=== PATIENT | female | born 1965 | race Hispanic/Latino ===

== ENCOUNTER 2016-09-11 18:53 | Emergency (ER) | payer MEDICAID ==
[2016-09-11 19:11] VITALS: BP 134/68; PULSE 82; RESP 20; TEMP 98.7; O2SAT 99
[2016-09-11 19:18] VITALS: BMI 19.3
[2016-09-11] MEDS ORDERED: Albuterol-Ipratrop 3 mg / 0.5 (3 ml) UD IH STA (19:37)
--- NOTE | 2016-09-11 19:37 | ED PDOC ---
Arrival/HPI <AryNitin - Last Filed: 09/11/16 21:06> - General Historian: Patient <Fermin Beltran - Last Filed: 09/12/16 05:05> - General Chief Complaint: Abdominal Pain Time Seen by Provider: 09/11/16 19:14 - History of Present Illness Narrative History of Present Illness (Text): 09/11/16 19:33 51 y/o female with hx COPD, tobacco use, chronic back pain presenting with complaints of abdominal pain. Patient states pain started about 1 day ago. She localizes pain to infra-umbilical area bilaterally. She reports associated fever of 102F yesterday at home. She denies associated nausea, vomiting and diarrhea. She has been able to tolerate both solids and liquids. Patient was recently admitted here for similar complaints and diagnosed with pelvic congestion syndrome. She is also complaining of chronic cough and shortness of breath. States states she used her nebulizer this morning without significant relief. (Fermin Beltran) Past Medical History - Provider Review Nursing Documentation Reviewed: Yes - Infectious Disease Hx of Infectious Diseases: None - Tetanus Immunization Tetanus Immunization: Unknown - Reproductive Menopause: Yes - Cardiac Hx Cardiac Disorders: No - Pulmonary Hx Respiratory Disorders: Yes (SMOKES PPD QUIT) - Neurological Hx Neurological Disorder: No - HEENT Hx HEENT Disorder: No - Renal Hx Renal Disorder: No - Endocrine/Metabolic Hx Endocrine Disorders: No - Hematological/Oncological Hx Blood Disorders: No - Integumentary Hx Dermatological Disorder: Yes (TATTOOS) - Musculoskeletal/Rheumatological Hx Musculoskeletal Disorders: Yes (CYST BEHIND KNEE R- LUMBAR RADICULOPATHY) - Gastrointestinal Hx Gastrointestinal Disorders: Yes (CONSTIPATION,APPENDICITIS) - Genitourinary/Gynecological Hx Genitourinary Disorders: Yes (OVARIAN CYSTECTOMY X 2.) - Psychiatric Hx Psychophysiologic Disorder: Yes Hx Anxiety: Yes Hx Substance Use: No - Surgical History Hx Tubal Ligation: Yes Other/Comment: MYOMECTOMY - Anesthesia Hx Anesthesia: Yes Hx Anesthesia Reactions: No Hx Malignant Hyperthermia: No - Suicidal Assessment Feels Threatened In Home Enviroment: No <Fermin Beltran - Last Filed: 09/12/16 05:05> Family/Social History - Physician Review Nursing Documentation Reviewed: Yes Family/Social History: Unknown Family HX Smoking Status: Light Smoker < 10 Cigarettes Daily Hx Alcohol Use: No Hx Substance Use: No Hx Substance Use Treatment: No <Fermin Beltran - Last Filed: 09/12/16 05:05> Allergies/Home Meds <Nitin Mcallister - Last Filed: 09/11/16 21:06> <Fermin Beltran - Last Filed: 09/12/16 05:05> Allergies/Adverse Reactions: Allergies hydroxyzine Allergy (Severe, Verified 08/26/16 23:14) FATIGUE hydroxyzine HCl [From Atarax] Allergy (Verified 08/26/16 23:14) FATIGUE Penicillins Allergy (Verified 08/26/16 23:14) RASH Home Medications: Home Meds Medication Instructions Recorded Confirmed Oxycodone HCl [Oxycontin] 80 mg PO BID 02/04/16 09/11/16 oxyCODONE [oxyCODONE Immediate 30 mg PO BID PRN 02/04/16 09/11/16 Release Tab] Alprazolam [Xanax] 2 mg PO BID PRN 08/26/16 09/11/16 Review of Systems - Physician Review All systems were reviewed & negative as marked: Yes - Review of Systems Constitutional: Fevers. absent: Night Sweats Respiratory: SOB, Cough Gastrointestinal: Abdominal Pain. absent: Stool Changes, Diarrhea, Nausea, Vomiting, Hematochezia, Food Intolerance Genitourinary Female: absent: Dysuria, Frequency, Hematuria Musculoskeletal: Back Pain, Neck Pain <Fermin Beltran - Last Filed: 09/12/16 05:05> Physical Exam Vital Signs Reviewed: Yes Temperature: Afebrile Blood Pressure: Normal Pulse: Regular Respiratory Rate: Normal Appearance: Positive for: Well-Appearing Mental Status: Positive for: Alert and Oriented X 3 - Systems Exam Head: Present: Atraumatic, Normocephalic Pupils: Present: PERRL Extroacular Muscles: Present: EOMI Conjunctiva: Present: Normal Mouth: Present: Moist Mucous Membranes Neck: Present: Normal Range of Motion Respiratory/Chest: Present: Wheezes. No: Clear to Auscultation, Good Air Exchange, Accessory Muscle Use, Rales, Rhonchi Cardiovascular: Present: Regular Rate and Rhythm, Normal S1, S2 Abdomen: Present: Normal Bowel Sounds. No: Tenderness, Distention, Peritoneal Signs, Rebound, Guarding Back: Present: Normal Inspection Upper Extremity: Present: Normal Inspection. No: Cyanosis, Edema Lower Extremity: Present: Normal Inspection, NORMAL PULSES. No: Edema, CALF TENDERNESS Neurological: Present: GCS=15, CN II-XII Intact, Speech Normal Skin: Present: Warm, Dry, Normal Color. No: Rashes Psychiatric: Present: Alert, Oriented x 3 <Fermin Beltran - Last Filed: 09/12/16 05:05> Vital Signs Temp Pulse Resp BP Pulse Ox 09/11/16 19:10 98.7 F 82 20 134/68 99 Medical Decision Making <Nitin Mcallister - Last Filed: 09/11/16 21:06> <Fermin Beltran - Last Filed: 09/12/16 05:05> ED Course and Treatment: Impression: Pt seen and evaluated with medical records specialist. Pt, whose past medical history includes COPD, pelvic congestion syndrome, tobacco use, chronic back pain, presented for abdominal pain for 1 days. Pt associated fever, nausea, vomiting, and diarrhea. Aware and ahree with HPI, clinical findings, plan, and management. Plan: -- Labs,lipase -- Urinalysis -- Duonebs -- Reassess and disposition Prior Visits: Notes and results from previous visits were reviewed. (Nitin Mcallister) 09/11/16 19:40 51 y/o with hx COPD, chronic back pain presenting with complaints of lower abdominal pain. Patient with recent diagnosis of pelvic congestion syndrome. Current complaints are similar previous presentations according to patient. - CBC - CMP - UA - Neb as patient is wheezing - reassess. 09/12/16 01:40 Lab results reviewed. There is no leukocytosis, renal dysfunction or electrolyte abnormalities. CT abd/pelvis reveals evidence of chronic pelvic congestion syndrome consistent with prior imaging done 3 weeks ago. Patient will be discharged to follow up her PCP and with pain management for ongoing treatment of her pelvic congestion syndrome. (Fermin Beltran) - Lab Interpretations Lab Results: 09/11/16 19:40 09/11/16 19:40 Lab Results 09/11/16 19:50: Urine Color Yellow, Urine Appearance Clear, Urine pH 6.0, Ur Specific [place] <= 1.005, Urine Protein Negative, Urine Glucose (UA) Negative, Urine Ketones Negative, Urine Blood Trace-lysed H, Urine Nitrate Negative, Urine Bilirubin Negative, Urine Urobilinogen 0.2, Ur Leukocyte Esterase Negative , Urine RBC 0 - 2, Urine WBC Negative, Ur Epithelial Cells 0 - 2, Urine Bacteria Neg 09/11/16 19:40: WBC 6.3, RBC 4.15, Hgb 13.0, Hct 39.2, MCV 94.5, MCH 31.3, MCHC 33.2, RDW 13.4, Plt Count 165, MPV 12.5 H, Gran % 64.9, Lymph % (Auto) 27.4, [place] % (Auto) 4.8, Eos % (Auto) 2.6, Baso % (Auto) 0.3, Gran # 4.07, Lymph # 1.7 , [place] # 0.3, Eos # 0.2, Baso # 0.02, Sodium 138, Potassium 3.6, Chloride 101, Carbon Dioxide 29, Anion Gap 12, BUN 9, Creatinine 0.9, Est GFR ( Amer) > 60, Est GFR (Non-Af Amer) > 60, Random Glucose 101, Calcium 8.8, Total Bilirubin 0.3, AST 25, ALT 18, Alkaline Phosphatase 101, Total Protein 7.0, Albumin 3.6, Globulin 3.4, Albumin/Globulin Ratio 1.1, Lipase 30 - RAD Interpretation Radiology Orders: 09/11/16 23:30 ABDOMEN & PELVIS [ABD & PELVIS IV CONTRAST ONLY] [CT] Stat 09/12/16 00:52 CHEST PORTABLE [RAD] Stat - Medication Orders Current Medication Orders: Discontinued Medications Albuterol/Ipratropium (Duoneb 3 Mg/0.5 Mg (3 Ml) Ud) 3 ml IH STAT STA Stop: 09/11/16 19:38 Last Admin: 09/11/16 19:56 Dose: 3 ML Albuterol/Ipratropium (Duoneb 3 Mg/0.5 Mg (3 Ml) Ud) 3 ml IH STAT STA Stop: 09/12/16 00:56 Last Admin: 09/12/16 01:02 Dose: 3 ML Sodium Chloride (Sodium Chloride 0.9%) 1,000 mls @ 999 mls/hr IV .Q1H1M STA Stop: 09/11/16 22:19 Last Admin: 09/11/16 21:38 Dose: 999 MLS/HR eMAR Start Stop Document 09/11/16 21:38 RD (Rec: 09/11/16 21:39 RD [id number]) Intravenous Solution Start Date 09/11/16 Start Time 21:38 End Date 09/11/16 End time 22:39 Total Infusion Time 61 Iohexol (Omnipaque 350 100 Ml) Confirm Administered Dose 350 mg .ROUTE .STK-MED ONE Stop: 09/12/16 00:41 Morphine Sulfate (Morphine) 4 mg IVP STAT STA Stop: 09/11/16 21:19 Last Admin: 09/11/16 21:39 Dose: Not Given Non-Admin Reason: Patient Refused Oxycodone HCl (Oxycodone Immediate Release Tab) 30 mg PO STAT STA Stop: 09/11/16 21:45 Last Admin: 09/11/16 22:06 Dose: 30 MG - PA / MACHINE G[employer] MECH[employer]IC / Resident Statement MARYCARMEN has reviewed & agrees with the documentation as recorded. MARYCARMEN has examined the patient and agrees with the treatment plan. <Nitin Mcallister - Last Filed: 09/11/16 21:06> Disposition/Present on Arrival <Nitin Mcallister - Last Filed: 09/11/16 21:06> - Present on Arrival Any Indicators Present on Arrival: No History of DVT/PE: No History of Uncontrolled Diabetes: No Urinary Catheter: No History of Decub. Ulcer: No History Surgical Site Infection Following: None - Disposition Have Diagnosis and Disposition been Completed?: Yes Disposition Time: 01:00 <Fermin Beltran - Last Filed: 09/12/16 05:05> - Disposition Diagnosis: Pelvic congestion syndrome Disposition: HOME/ ROUTINE Condition: STABLE Discharge Instructions (ExitCare): Pelvic Pain in Women (ED) Additional Instructions: Please see your family physician within one week for further treatment of your pelvic congestion syndrome. Continue to take all home medications as you were prior to coming to the ED. If symptoms continue to worsen or do not resolve return to the ED. Referrals: Jacob Clark MD [Primary Care Provider] - Follow up with primary
[2016-09-11 19:53] LABS: ADD MANUAL DIFF? NO
[2016-09-11 20:10] LABS: BASO # 0.02 [, K/mm3] (0.0-2.0); BASO % 0.3 % (0.0-3.0); EOS # 0.2 (0.0-0.7); EOS % 2.6 % (1.5-5.0); GRAN # 4.07 (1.4-6.5); GRAN % 64.9 % (50.0-68.0); HEMATOCRIT 39.2 % (36.0-48.0); LYMPH # 1.7 (1.2-3.4); LYMPH % 27.4 % (22.0-35.0); MEAN CELL VOLUME 94.5 fL (80.0-105.0); MEAN CORPUSCULAR HEMOGLOBIN 31.3 pg (25.0-35.0); MEAN CORPUSCULAR HGB CONC 33.2 g/dl (31.0-37.0); MEAN PLATELET VOLUME 12.5 fl (7.0-11.0); MONO # 0.3 (0.1-0.6); MONO % 4.8 % (1.0-6.0); PLATELET COUNT 165 [, 10^3/uL] (120.0-450.0); RED CELL DISTRIBUTION WIDTH 13.4 % (11.5-14.5); WHITE BLOOD COUNT 6.3 [, 10^3/ul] (4.5-11.0)
[2016-09-11 20:23] LABS: ALB/GLOB RATIO 1.1 (1.1-1.8); ALKALINE PHOSPHATASE 101 U/L (38-133); ALT/SGPT 18 U/L (7-56); AST/SGOT 25 U/L (15-39); BILIRUBIN,TOTAL 0.3 mg/dL (0.2-1.3); BLOOD UREA NITROGEN 9 mg/dL (7-21); CALCIUM 8.8 mg/dL (8.4-10.5); CARBON DIOXIDE 29 mmol/L (21-33); CHLORIDE 101 mmol/L (98-107); GFR AFRICAN-AMERICAN > 60; GLUCOSE,RANDOM 101 mg/dL (70-110); LIPASE 30 U/L (23-300); POTASSIUM 3.6 mmol/L (3.6-5.0); SODIUM 138 mmol/L (132-148)
[2016-09-11] MEDS ORDERED: Morphine 4 mg/ml ISec IVP STA (21:18)
[2016-09-11] MEDS ORDERED: Sodium Chloride 0.9% 1,000 ML IV STA (21:19)
[2016-09-11 21:21] LABS: URINE BILIRUBIN NEGATIVE (NEGATIVE); URINE BLOOD TRACE-LYSED (NEGATIVE); URINE GLUCOSE (UA) NEGATIVE (NEGATIVE); URINE KETONE NEGATIVE (NEGATIVE); URINE LEUKOCYTE ESTERASE NEGATIVE Leu/uL (NEGATIVE); URINE PROTEIN NEGATIVE mg/dL (<30 mg/dL); URINE UROBILINOGEN 0.2 E.U./dL (<1 E.U./dL)
[2016-09-11 21:23] LABS: URINE APPEARANCE CLEAR (CLEAR); URINE COLOR YELLOW (YELLOW)
[2016-09-11] MEDS ORDERED: oxyCODONE 30 mg Immediate Release Tab PO STA (21:44)
[2016-09-11 22:32] LABS: URINE BACTERIA NEG (NEG); URINE EPITHELIAL CELLS 0 - 2 /hpf (0-5); URINE RBC 0 - 2 /hpf (0-2); URINE WBC NEGATIVE /hpf (0-6)
[2016-09-12] MEDS ORDERED: Iohexol 350 MG/100 ML VIAL ONE (00:40)
[2016-09-12] MEDS ORDERED: Albuterol-Ipratrop 3 mg / 0.5 (3 ml) UD IH STA (00:55)
--- NOTE | 2016-09-12 01:35 | CT ---
EXAM: CT Abdomen and Pelvis With Intravenous Contrast. CLINICAL HISTORY: 51 years old, female; Pain; Abdominal pain; Generalized TECHNIQUE: Axial computed tomography images of the abdomen and pelvis with intravenous contrast. This CT exam was performed using one or more of the following dose reduction techniques: automated exposure control, adjustment of the mA and/or kV according to patient size, and/or use of iterative reconstruction technique. Coronal and sagittal reformatted images were created and reviewed. CONTRAST: 100 mL of omni 350 administered intravenously. EXAM DATE/TIME: Exam ordered 09/11/2016 11:30 PM COMPARISON: CT - ABD PELVIS IV CONTRAST ONLY 07/26/2016 12:37:38 AM FINDINGS: Lower thorax: Air in the esophagus in keeping with reflux. Small hiatus hernia. Changes of centrilobular emphysema, dependent atelectasis. Subpleural nodule series 2 image 14 6 mm, left lower lobe, this may be slightly larger than on previous CT of April 2016, this could reflect true growth versus differences in slice thickness and location. ABDOMEN: Liver: Unremarkable. No mass. Gallbladder and bile ducts: Unremarkable. No calcified stones. No ductal dilation. Pancreas: Unremarkable. No mass. No ductal dilation. Spleen: Unremarkable. No splenomegaly. Adrenals: There is nodularity medial limb left adrenal series 2 image 37. Kidneys and ureters: There is moderate right hydroureter, seen to the level of the pelvic brim, but calcification is not appreciated. No delayed images are presented. Stomach and bowel: There is redemonstration of increased formed fecal content throughout the colon suggesting constipation. There are no findings to suggest bowel obstruction. There is diverticular disease with no findings to suggest acute diverticulitis. Appendix: No findings to suggest acute appendicitis. PELVIS: Bladder: Unremarkable. No mass. Reproductive: Previous images not available, however, there is a report of a previous MRI of the pelvis dated August 19, 2016 which described a retroverted uterus, and no fibroids, and no adnexal masses. There is a comparison study available of CT dated June 05, 2016. Findings at that time are described as suggestive of pelvic congestion syndrome. ABDOMEN and PELVIS: Intraperitoneal space: There is no free intraperitoneal air. No significant fluid collection. Bones/joints: Bony structures with no fractures identified. Likely disc bulge or other disc pathology L5-S1, see sagittal image 65. No dislocation. Soft tissues: Unremarkable. Vasculature: There is redemonstration of prominent tortuous serpiginous vessels bilaterally adjacent to the uterus in keeping with pelvic congestion syndrome, further noting a markedly prominent left gonadal vein. No abdominal aortic aneurysm. Lymph nodes: Lymph nodes. There is an upper normal portacaval node. IMPRESSION: Redemonstration of constipation. Redemonstration of findings in keeping with pelvic congestion syndrome noting that CT evaluation for details of reproductive anatomy is limited. Mild right hydroureter with no obstructing stone seen, laboratory correlation. Left lower lobe subpleural lung nodule, questionably increased in size compared to prior study of April 2016, followup per Fleischner Society guidelines for follow-up and management of pulmonary nodules, noting centrilobular emphysema, For patient at high risk (history of smoking or of other known risk factors), recommend initial follow-up chest CT at 3-6 months, then at 9-12 and 24 months if no change. Noting limitations of absence of oral contrast and the relatively early phase of intravenous contrast, no specific evidence of acute changes in comparison to CT of approximately 3 months earlier.
--- NOTE | 2016-09-12 11:12 | RAD ---
HISTORY: cough COMPARISON: 08/27/2016 FINDINGS: LUNGS: The lungs are hyperinflated and there is peribronchial thickening with chronic changes in both lungs. There is no focal consolidation. PLEURA: No significant pleural effusion identified, no pneumothorax apparent. CARDIOVASCULAR: Normal. OSSEOUS STRUCTURES: No significant abnormalities. VISUALIZED UPPER ABDOMEN: Normal. OTHER FINDINGS: None. IMPRESSION: No active pulmonary disease. COPD.
== END 2016-09-12 02:13 | disposition home or self-care (01) ==
LOC: ED 18:53
DX: N94.89 Other specified conditions associated with female genital organs and menstrual cycle (principal); J44.9 Chronic obstructive pulmonary disease, unspecified; Z72.0 Tobacco use
CPT/HCPCS: 71010; 74177; 80053; 81001; 83690; 85025; 96360; 99283; J7040; Q9967

== ENCOUNTER 2016-09-21 10:56 | Observation (INO) | payer MEDICAID ==
[2016-09-21 11:02] VITALS: BMI 18.4
[2016-09-21] MEDS ORDERED: Sodium Chloride 0.9% 1,000 ML IV STA ×2 (12:09)
[2016-09-21] MEDS ORDERED: oxyCODONE 30 mg Immediate Release Tab PO STA (12:09)
--- NOTE | 2016-09-21 12:09 | ED PDOC ---
Arrival/HPI - General Chief Complaint: Flu-like Symptoms Time Seen by Provider: 09/21/16 11:36 Historian: Patient - History of Present Illness Narrative History of Present Illness (Text): 09/21/16 12:06 51 year old female with a past medical history that includes COPD, herniated disc, and pelvic congestion syndrome presents to the emergency department with chest pain and dizziness, as if about to pass out. Patient states chest pain is not necessarily worse with cough (which is chronic) though possibly worse with inspiration. No fever but has body aches. Denies vomiting, dizziness, urinary/bowel changes, or other symptoms. Time/Duration: 24 hours Symptom Onset: Gradual Symptom Course: Unchanged Modifying Factors (Text): None Associated Symptoms (Text): None Past Medical History - Provider Review Nursing Documentation Reviewed: Yes - Infectious Disease Hx of Infectious Diseases: None - Tetanus Immunization Tetanus Immunization: Unknown - Reproductive Menopause: Yes - Cardiac Hx Cardiac Disorders: No Other/Comment: Sepsis last admission about 3 weeks ago. - Pulmonary Hx Respiratory Disorders: Yes (SMOKES PPD QUIT) - Neurological Hx Neurological Disorder: No - HEENT Hx HEENT Disorder: No - Renal Hx Renal Disorder: No - Endocrine/Metabolic Hx Endocrine Disorders: No - Hematological/Oncological Hx Blood Disorders: No - Integumentary Hx Dermatological Disorder: Yes (TATTOOS) - Musculoskeletal/Rheumatological Hx Musculoskeletal Disorders: Yes (CYST BEHIND KNEE R- LUMBAR RADICULOPATHY) - Gastrointestinal Hx Gastrointestinal Disorders: Yes (CONSTIPATION,APPENDICITIS) - Genitourinary/Gynecological Hx Genitourinary Disorders: Yes (OVARIAN CYSTECTOMY X 2.) - Psychiatric Hx Psychophysiologic Disorder: Yes Hx Anxiety: Yes Hx Substance Use: No - Surgical History Hx Tubal Ligation: Yes Other/Comment: MYOMECTOMY - Anesthesia Hx Anesthesia: Yes Hx Anesthesia Reactions: No Hx Malignant Hyperthermia: No - Suicidal Assessment Feels Threatened In Home Enviroment: No Family/Social History - Physician Review Nursing Documentation Reviewed: Yes Family/Social History: Unknown Family HX Smoking Status: Light Smoker < 10 Cigarettes Daily Hx Alcohol Use: No Hx Substance Use: No Hx Substance Use Treatment: No Allergies/Home Meds Allergies/Adverse Reactions: Allergies hydroxyzine Allergy (Severe, Verified 08/26/16 23:14) FATIGUE hydroxyzine HCl [From Atarax] Allergy (Verified 08/26/16 23:14) FATIGUE Penicillins Allergy (Verified 08/26/16 23:14) RASH Home Medications: Home Meds Medication Instructions Recorded Confirmed Oxycodone HCl [Oxycontin] 80 mg PO BID 02/04/16 09/21/16 oxyCODONE [oxyCODONE Immediate 30 mg PO BID PRN 02/04/16 09/21/16 Release Tab] Alprazolam [Xanax] 2 mg PO BID PRN 08/26/16 09/21/16 Review of Systems - Physician Review All systems were reviewed & negative as marked: Yes - Review of Systems Constitutional: absent: Fevers Eyes: absent: Vision Changes ENT: absent: Hearing Changes Respiratory: Cough Cardiovascular: Chest Pain Gastrointestinal: absent: Abdominal Pain, Nausea, Vomiting Genitourinary Female: absent: Dysuria, Frequency, Hematuria Musculoskeletal: Arthralgias Skin: absent: Rash Neurological: absent: Dizziness Endocrine: absent: Diaphoresis Psychiatric: absent: Depression Physical Exam Vital Signs Reviewed: Yes Vital Signs Temp Pulse Resp BP Pulse Ox 09/21/16 11:52 99.2 F 09/21/16 11:36 98.8 F 77 20 91/68 L 96 09/21/16 11:02 77 20 91/68 L 96 Temperature: Afebrile Blood Pressure: Hypotensive Pulse: Regular Respiratory Rate: Normal Appearance: Positive for: Well-Appearing, Non-Toxic, Comfortable Pain Distress: None Mental Status: Positive for: Alert and Oriented X 3 - Systems Exam Head: Present: Atraumatic, Normocephalic Pupils: Present: PERRL Conjunctiva: Present: Normal Mouth: Present: Moist Mucous Membranes Pharnyx: Present: Normal. No: ERYTHEMA, EXUDATE Neck: Present: Normal Range of Motion Respiratory/Chest: Present: Good Air Exchange, Decreased Breath Sounds. No: Respiratory Distress, Accessory Muscle Use Cardiovascular: Present: Regular Rate and Rhythm, Normal S1, S2. No: Murmurs Abdomen: Present: Normal Bowel Sounds. No: Tenderness, Distention, Peritoneal Signs Back: Present: Normal Inspection Upper Extremity: Present: Normal Inspection. No: Cyanosis, Edema Lower Extremity: Present: Normal Inspection. No: Edema Neurological: Present: GCS=15, CN II-XII Intact, Speech Normal Skin: Present: Warm, Dry, Normal Color. No: Rashes Psychiatric: Present: Alert, Oriented x 3, Normal Insight, Normal Concentration Medical Decision Making ED Course and Treatment: Impression: 51 year old female with a past medical history that includes COPD, herniated disc, and pelvic congestion syndrome presents to the emergency department with chest pain and near syncope since yesterday. Differential Diagnosis included but are not limited to: COPD exacerbation vs ACS vs pneumonia vs PE Plan: -- EKG -- IV fluids -- Reassess and disposition Prior Visits: Notes and results from previous visits were reviewed. Patient last seen in the ED on 09/11/16 for abdominal pain and discharged home. Progress Notes: Patient with noted history; EKG is unremarkable. Given her chronic pain meds but still no improvemet in cp. Initial CE negative - will need to be observed further for chest pain. Discussed with Dr. Abdi. Will also get CTA chest to r /o PE.+ - Lab Interpretations Lab Results: 09/21/16 12:30 09/21/16 12:30 Lab Results 09/21/16 12:30: WBC 6.1, RBC 4.85, Hgb 15.0, Hct 44.7, MCV 92.2, MCH 30.9, MCHC 33.6, RDW 13.1, Plt Count 181, MPV 12.8 H, Gran % 70.4 H, Lymph % (Auto) 23.3, [place] % (Auto) 3.8, Eos % (Auto) 2.0, Baso % (Auto) 0.5, Gran # 4.27, Lymph # 1.4 , [place] # 0.2, Eos # 0.1, Baso # 0.03, ESR 19, PT 12.2 H, INR 1.13 H, APTT 26.0, pO2 59 H, VBG pH 7.35, VBG pCO2 51.0, VBG HCO3 28.2 H, VBG Total CO2 29.8 H, VBG O2 Sat (Calc) 91.9 H, VBG Base Excess 1.7, VBG Potassium 4.0, Glucose 99, Lactate 1.2, FiO2 21.0, Sodium 137.0, Potassium 3.9, Chloride 107.0, Carbon Dioxide 28, Anion Gap 16, BUN 8, Creatinine 0.7, Est GFR ( Amer) > 60, Est GFR (Non-Af Amer) > 60, Random Glucose 103, Calcium 10.1, Phosphorus 3.9, Magnesium 2.0, Total Bilirubin 0.5, AST 31, ALT 30, Alkaline Phosphatase 136 H, Lactate Dehydrogenase 371, Total Creatine Kinase 40, Troponin I < 0.01, NT-Pro- B Natriuret Pep 58.3, Total Protein 8.5 H, Albumin 4.5, Globulin 4.0, Albumin/ Globulin Ratio 1.1, Venous Blood Potassium 4.0, Alcohol, Quantitative < 10, Influenza Typ A,B (EIA) Negative for flu a/b - RAD Interpretation Radiology Orders: 09/21/16 12:08 CHEST PORTABLE [RAD] Stat 09/21/16 14:26 ANGIO CHEST PE PROTOCOL [CT] Stat - EKG Interpretation EKG Interpretation (Text): 09/21/16 14:30 NSR @ 84; no ST/T change; normal axis; normal intervals. - Medication Orders Current Medication Orders: Discontinued Medications Aspirin (Aspirin Chewable) 324 mg PO STAT STA Stop: 09/21/16 14:21 Sodium Chloride (Sodium Chloride 0.9%) 1,000 mls @ 999 mls/hr IV .Q1H1M STA Stop: 09/21/16 13:09 Last Admin: 09/21/16 12:42 Dose: 999 MLS/HR eMAR Start Stop Document 09/21/16 12:42 SS (Rec: 09/21/16 12:43 SS [facility] [id number] Intravenous Solution Start Date 09/21/16 Start Time 12:42 End Date 09/21/16 End time 13:43 Total Infusion Time 61 Sodium Chloride (Sodium Chloride 0.9%) 1,000 mls @ 999 mls/hr IV .Q1H1M STA Stop: 09/21/16 13:09 Oxycodone HCl (Oxycodone Immediate Release Tab) 30 mg PO ONCE STA Stop: 09/21/16 12:10 Oxycodone HCl (Oxycontin Extended Release Tab) 80 mg PO STAT STA Stop: 09/21/16 12:11 Last Admin: 09/21/16 12:38 Dose: 80 MG - Kobyibe Statement The provider has reviewed the documentation as recorded by the Jeronimo Snyder Provider Scribe Attestation: All medical record entries made by the Jeronimo were at my direction and personally dictated by me. I have reviewed the chart and agree that the record accurately reflects my personal performance of the history, physical exam, medical decision making, and the department course for this patient. I have also personally directed, reviewed, and agree with the discharge instructions and disposition. Disposition/Present on Arrival - Present on Arrival Any Indicators Present on Arrival: No History of DVT/PE: No History of Uncontrolled Diabetes: No Urinary Catheter: No History of Decub. Ulcer: No History Surgical Site Infection Following: None - Disposition Have Diagnosis and Disposition been Completed?: Yes Diagnosis: Chest pain, Hypotension Disposition: HOSPITALIZED Disposition Time: 14:25 Patient Plan: Observation, Telemetry Condition: FAIR Discharge Instructions (ExitCare): Chest Pain (ED)
[2016-09-21] MEDS ORDERED: oxyCODONE 80 mg ER Tab (oxyCONTIN) PO STA (12:10)
--- NOTE | 2016-09-21 12:31 | RAD ---
HISTORY: Sepsis Patient COMPARISON: 09/12/2016 FINDINGS: LUNGS: No active pulmonary disease. PLEURA: No significant pleural effusion identified, no pneumothorax apparent. CARDIOVASCULAR: Normal. OSSEOUS STRUCTURES: No significant abnormalities. VISUALIZED UPPER ABDOMEN: Normal. OTHER FINDINGS: None. IMPRESSION: No active disease.
[2016-09-21 12:44] LABS: ADD MANUAL DIFF? NO
[2016-09-21 12:51] LABS: VENOUS BLOOD GAS BASE EXCESS 1.7 mmol/L (0.0-2.0); VENOUS BLOOD PH 7.35 (7.32-7.43)
[2016-09-21 12:54] LABS: BASO # 0.03 K/mm3 (0.0-2.0); BASO % 0.5 % (0.0-3.0); EOS # 0.1 (0.0-0.7); GRAN # 4.27 (1.4-6.5); GRAN % 70.4 % (50.0-68.0); HEMATOCRIT 44.7 % (36.0-48.0); LYMPH # 1.4 (1.2-3.4); LYMPH % 23.3 % (22.0-35.0); MEAN CELL VOLUME 92.2 fL (80.0-105.0); MEAN CORPUSCULAR HEMOGLOBIN 30.9 pg (25.0-35.0); MEAN CORPUSCULAR HGB CONC 33.6 g/dl (31.0-37.0); MEAN PLATELET VOLUME 12.8 fl (7.0-11.0); MONO # 0.2 (0.1-0.6); MONO % 3.8 % (1.0-6.0); PLATELET COUNT 181 10^3/uL (120.0-450.0); RED CELL DISTRIBUTION WIDTH 13.1 % (11.5-14.5); WHITE BLOOD COUNT 6.1 10^3/ul (4.5-11.0)
[2016-09-21 13:01] LABS: INR 1.13 (0.93-1.08)
[2016-09-21 13:02] LABS: ALB/GLOB RATIO 1.1 (1.1-1.8); ALKALINE PHOSPHATASE 136 U/L (38-133); ALT/SGPT 30 U/L (7-56); AST/SGOT 31 U/L (15-39); BILIRUBIN,TOTAL 0.5 mg/dL (0.2-1.3); BLOOD UREA NITROGEN 8 mg/dL (7-21); CALCIUM 10.1 mg/dL (8.4-10.5); CARBON DIOXIDE 28 mmol/L (21-33); CHLORIDE 101 mmol/L (98-107); GFR AFRICAN-AMERICAN > 60; GLUCOSE,RANDOM 103 mg/dL (70-110); PHOSPHOROUS 3.9 mg/dL (2.5-4.5); POTASSIUM 3.9 mmol/L (3.6-5.0); SODIUM 141 mmol/L (132-148); TOTAL PROTEIN 8.5 g/dL (5.8-8.3)
[2016-09-21 13:15] LABS: TROPONIN I < 0.01 ng/mL
[2016-09-21 14:04] LABS: ERYTHROCYTE SEDIMENTATION RATE 19 mm/hr (0.0-20.0)
[2016-09-21] MEDS ORDERED: Iodixanol 320 MG/ML 100 ML BOTTLE IV ONE (14:31)
--- NOTE | 2016-09-21 15:15 | CP.PCM.HP ---
<Carolann Bruce - Last Filed: 09/21/16 15:37> History of Present Illness - History of Present Illness History of Present Illness: HPI: 51 yo F w/PMHx of COPD, herniated disc, anxiety, and pelvic congestion syndrome presents to the ED with chest pain that radiates to her R shoulder and dizziness, as if about to pass out. Patient states chest pain is not necessarily worse with cough (which is chronic) though possibly worse with inspiration. Pain lasted for 15 min. Pt also reports SOB, coughing with bloody sputum last few days. No fever but has body aches. Denies vomiting,hematemsis, syncopy, LOC, vision changes, urinary/bowel changes, or other symptoms. Pt reports that this is the first time having chest pain like this. Pt had recent admission for COPD in 08/2016. PMHx: COPD, herniated disc, anxiety, Pelvic congestion syndrome. PSH: fibroid removal and ovarian cystectomyx2 Allergies : Penicillin, hydroxyzine (rash) Social History : Lives with family : cigarets 1 pk/day for 20 yrs, denies Etoh or illicit drug use. family Hx :Mother- CABG, HTN, heart disease Brother - Bone cancer Medication- oxycontin 80 mg po. bid, oxycodone 30 mg po bid PMD- Eduardo Present on Admission - Present on Admission Any Indicators Present on Admission: No History of DVT/PE: No History of Uncontrolled Diabetes: No Review of Systems - Review of Systems Review of Systems: See HPI - Constitutional Constitutional: Fatigue. absent: Chills, Fever - EENT Eyes: absent: Blurred Vision Past Patient History - Infectious Disease Hx of Infectious Diseases: None - Tetanus Immunizations Tetanus Immunization: Unknown - Past Medical History & Family History Past Medical History?: Yes - Past Social History Smoking Status: Light Smoker < 10 Cigarettes Daily - CARDIAC Hx Cardiac Disorders: No Other/Comment: Sepsis last admission about 3 weeks ago. - PULMONARY Hx Respiratory Disorders: Yes (SMOKES PPD QUIT) - NEUROLOGICAL Hx Neurological Disorder: No - HEENT Hx HEENT Problems: No - RENAL Hx Chronic Kidney Disease: No - ENDOCRINE/METABOLIC Hx Endocrine Disorders: No - HEMATOLOGICAL/ONCOLOGICAL Hx Blood Disorders: No - INTEGUMENTARY Hx Dermatological Problems: Yes (TATTOOS) - MUSCULOSKELETAL/RHEUMATOLOGICAL Hx Musculoskeletal Disorders: Yes (CYST BEHIND KNEE R- LUMBAR RADICULOPATHY) - GASTROINTESTINAL Hx Gastrointestinal Disorders: Yes (CONSTIPATION,APPENDICITIS) - GENITOURINARY/GYNECOLOGICAL Hx Genitourinary Disorders: Yes (OVARIAN CYSTECTOMY X 2.) - PSYCHIATRIC Hx Psychophysiologic Disorder: Yes Hx Anxiety: Yes Hx Substance Use: No - SURGICAL HISTORY Hx Tubal Ligation: Yes Other/Comment: MYOMECTOMY - ANESTHESIA Hx Anesthesia: Yes Hx Anesthesia Reactions: No Hx Malignant Hyperthermia: No Meds Allergies/Adverse Reactions: Allergies Allergy/AdvReac Type Severity Reaction Status Date / Time hydroxyzine Allergy Severe FATIGUE Verified 08/26/16 23:14 hydroxyzine HCl [From Atarax] Allergy FATIGUE Verified 08/26/16 23:14 Penicillins Allergy RASH Verified 08/26/16 23:14 Physical Exam - Constitutional Appears: Non-toxic - Head Exam Head Exam: ATRAUMATIC, NORMAL INSPECTION, NORMOCEPHALIC - Eye Exam Eye Exam: EOMI, Normal appearance, PERRL Pupil Exam: NORMAL ACCOMODATION, PERRL - ENT Exam ENT Exam: Mucous Membranes Moist, Normal Exam - Neck Exam Neck exam: Positive for: Normal Inspection - Respiratory Exam Respiratory Exam: Wheezes. absent: Accessory Muscle Use, Respiratory Distress - Cardiovascular Exam Cardiovascular Exam: REGULAR RHYTHM, +S1, +S2 - GI/Abdominal Exam GI & Abdominal Exam: Soft. absent: Distended, Firm, Guarding, Tenderness - Extremities Exam Extremities exam: Positive for: full ROM, normal inspection. Negative for: pedal edema, tenderness - Back Exam Back exam: NORMAL INSPECTION, tenderness - Neurological Exam Neurological exam: Alert, CN II-XII Intact, Normal Gait, Oriented x3, Reflexes Normal - Skin Skin Exam: Dry, Intact, Normal Color, Warm Results - Vital Signs Recent Vital Signs: Last Vital Signs Temp 99.2 F 09/21/16 11:52 Pulse 77 09/21/16 11:36 Resp 20 09/21/16 11:36 BP 91/68 L 09/21/16 11:36 Pulse Ox 96 09/21/16 11:36 - Labs Result Diagrams: 09/21/16 12:30 09/21/16 12:30 Assessment & Plan - Assessment and Plan (Free Text) Assessment: 51 yo F w/PMHx of COPD, herniated disc, anxiety, and pelvic congestion syndrome presents to the ED with new onset Chest pain. 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 Nicoderm 14mg patch Smoking Cessation DVT/GI prophylaxis -protonix/SCD -zofran 4mg IVP q4h prn HH diet Dispo: Observation at tele DW attending <Rupert Abdi MD - Last Filed: 09/21/16 17:58> Results - Vital Signs Recent Vital Signs: Last Vital Signs Temp 99.2 F 09/21/16 11:52 Pulse 79 09/21/16 15:44 Resp 20 09/21/16 11:36 BP 101/53 L 09/21/16 15:44 Pulse Ox 99 09/21/16 15:44 - Labs Result Diagrams: 09/21/16 12:30 09/21/16 12:30 Labs: Laboratory Results - last 24 hr 09/21/16 09/21/16 15:50 16:02 Urine Color Yellow Urine Appearance Clear Urine pH 7.5 Ur Specific Willard 1.010 Urine Protein Negative Urine Glucose (UA) Negative Urine Ketones Negative Urine Blood Trace-intact H Urine Nitrate Negative Urine Bilirubin Negative Urine Urobilinogen 0.2 Ur Leukocyte Esterase Negative Urine RBC 1 - 3 Urine WBC 0 - 2 Ur Epithelial Cells 3 - 4 Urine Bacteria Few Urine Opiates Screen Positive H Urine Methadone Screen Negative Ur Barbiturates Screen Negative Ur Phencyclidine Scrn Negative Ur Amphetamines Screen Negative U Benzodiazepines Scrn Positive H U Oth Cocaine Metabols Negative U Cannabinoids Screen Negative Attending/Attestation - Attestation I have personally seen and examined this patient.: Yes I have fully participated in the care of the patient.: Yes I have reviewed all pertinent clinical information: Yes Notes (Text): Patient was seen and examined with biomedical instrument technician .Agreed with resident assessment and plan. 51 yo F w/PMHx of COPD, herniated disc, anxiety,chronic smoking and pelvic congestion syndrome is admitted with atypical chest pain, CTA negative for Pulmonary embolism, EKG no ischemic changes, we will admit patient to telemetry for observation, will get serial troponin and will get cardiology consult. Management plan was discussed in detail with patient Education was provided.
[2016-09-21] MEDS ORDERED: Albuterol-Ipratrop 3 mg / 0.5 (3 ml) UD IH PRN (15:26)
--- NOTE | 2016-09-21 15:42 | CT ---
PROCEDURE: CT Chest with contrast (Pulmonary Angiogram) HISTORY: chest pain - r/o PE COMPARISON: None available. TECHNIQUE: Axial computed tomography images were obtained of the chest in the pulmonary arterial phase of enhancement. Coronal and sagittal reformatted images were created and reviewed. Intravenous contrast dose: 100 cc of Visipaque Radiation dose: Total exam DLP = 163 mGy-cm. This CT exam was performed using one or more of the following dose reduction techniques: Automated exposure control, adjustment of the mA and/or kV according to patient size, and/or use of iterative reconstruction technique. FINDINGS: PULMONARY ARTERIES: Unremarkable. No pulmonary embolism. AORTA: No acute findings. No thoracic aortic aneurysm. LUNGS: Unremarkable. No nodule, mass or pulmonary consolidation. PLEURAL SPACES: Unremarkable. No effusion or pneuomothorax. HEART: Unremarkable. No cardiomegaly. No significant pericardial effusion. LYMPH NODES: No lymphadenopathy. BONES, CHEST WALL: Unremarkable. No fracture or destructive lesion OTHER FINDINGS: Unremarkable. IMPRESSION: Unremarkable CT pulmonary angiogram. No pulmonary embolus.
[2016-09-21] MEDS ORDERED: guaiFENesin 100 mg/5 ml Syrup UD PO PRN (15:43)
[2016-09-21] MEDS: Sodium Chloride 0.9% 1,000 ML IV SCH (16:11)
[2016-09-21 16:14] LABS: PH,URINE 7.5 (4.7-8.0); URINE BILIRUBIN NEGATIVE (NEGATIVE); URINE BLOOD TRACE-INTACT (NEGATIVE); URINE GLUCOSE (UA) NEGATIVE (NEGATIVE); URINE KETONE NEGATIVE (NEGATIVE); URINE LEUKOCYTE ESTERASE NEGATIVE Leu/uL (NEGATIVE); URINE PROTEIN NEGATIVE mg/dL (<30 mg/dL); URINE UROBILINOGEN 0.2 E.U./dL (<1 E.U./dL)
[2016-09-21 16:15] LABS: URINE APPEARANCE CLEAR (CLEAR); URINE COLOR YELLOW (YELLOW)
[2016-09-21 16:17] LABS: URINE BACTERIA FEW (NEG); URINE WBC 0 - 2 /hpf (0-6)
[2016-09-21] MEDS ORDERED: OXYCODONE HCL 80 MG PO SCH (18:00)
--- NOTE | 2016-09-21 18:51 | CARD ---
APPROVED REPORT EKG Measurement Heart [id number] <Conclusion> Normal sinus rhythm Biatrial enlargement Abnormal ECG
[2016-09-21] MEDS: oxyCODONE 30 mg Immediate Release Tab PO PRN (20:49)
[2016-09-21] MEDS: Naproxen 275 mg Tab PO SCH (21:30)
[2016-09-21] MEDS ORDERED: oxyCODONE 80 mg ER Tab (oxyCONTIN) PO SCH (22:00)
--- NOTE | 2016-09-21 23:39 | CON ---
DATE: 09/21/2016 HISTORY OF PRESENT ILLNESS: The patient is a 51-year-old female with known case of COPD, herniated d isk in the back, anxiety, pelvic congestion syndrome, presented with sharp pain in the mid chest whic h radiated to the right upper chest and shoulder and back. The patient denies any prior history of e xertional chest pain. She says she gets shortness of breath on exertion. The patient's pain is much better now. She also has local tenderness at area of the pain. PAST MEDICAL HISTORY: Positive for COPD, herniated disk, anxiety, pelvic congestion syndrome. PAST SURGICAL HISTORY: The patient had fibroid removed and a cyst from the ovary and had tubal ligat ion. ALLERGIES: THE PATIENT IS ALLERGIC TO PENICILLIN AND HYDROXYZINE. PERSONAL HISTORY: The patient says that recently she was smoking up to one and a half pack a day, bu t now she has cut back and now she is smoking about 10 cigarettes a day. Denies drinking. FAMILY HISTORY: Mother had coronary artery disease with coronary artery bypass surgery, hypertension . HOME MEDICATIONS: OxyContin, oxycodone, Xanax. REVIEW OF SYSTEMS: All the systems were reviewed, positive mentioned in the history, others were neg ative. PHYSICAL EXAMINATION: VITAL SIGNS: Blood pressure 122/73, respirations 20, pulse 65, temperature 98.1. HEENT: Head is normocephalic. Eyes: Pupils normal. Conjunctivae normal. Nose and throat normal. NECK: JVP low. Carotid equal. THORAX: AP diameter normal. LUNGS: No rales. CARDIOVASCULAR: S1, S2. ABDOMEN: Soft, nontender, no organomegaly. Bowel sounds normal. EXTREMITIES: No clubbing, no cyanosis. LABORATORY DATA: Shows WBC 6.1, hemoglobin 15.0, hematocrit 44.7, platelets 181. Sodium 141, potass ium 3.9, BUN 8, creatinine 0.7. Calcium, phosphorus and magnesium normal. AST, ALT normal. Alkalin e phosphatase 136. Troponin less than 0.01, total protein 8.5, albumin 4.5. EKG shows sinus rhythm, suggestive of chronic lung disease. Chest x-ray clear, shows emphysematous changes. DIAGNOSES: Chest pain with local anterior chest were tenderness, musculoskeletal pain, COPD, anxiety , history of pelvic congestion syndrome. PLAN: We will give Naprosyn to the patient along with Protonix. The patient is already on aspirin 8 1 mg daily, hydrocortisone 5 mg p.o. daily, getting IV fluid, oxycodone as ordered, Xanax as ordered. We will order echocardiogram and nuclear stress test. Will also get the patient's lipid profile an d TSH and we will follow with you. Rupert Lamb MD cc: [id number] TT: 09/21/2016 23:38:52 Confirmation # [id number] Dictation # [id number] mn
[2016-09-22] MEDS: oxyCODONE 30 mg Immediate Release Tab PO PRN ×2 (05:17→17:02)
[2016-09-22] MEDS ORDERED: oxyCODONE 80 mg ER Tab (oxyCONTIN) PO SCH ×2 (06:00→07:50)
[2016-09-22 07:08] LABS: ADD MANUAL DIFF? NO
[2016-09-22 07:18] LABS: BASO # 0.03 K/mm3 (0.0-2.0); BASO % 0.6 % (0.0-3.0); EOS # 0.2 (0.0-0.7); EOS % 3.4 % (1.5-5.0); GRAN # 2.53 (1.4-6.5); GRAN % 48.3 % (50.0-68.0); HEMATOCRIT 36.5 % (36.0-48.0); LYMPH # 2.2 (1.2-3.4); LYMPH % 41.6 % (22.0-35.0); MEAN CELL VOLUME 92.9 fL (80.0-105.0); MEAN CORPUSCULAR HEMOGLOBIN 30.5 pg (25.0-35.0); MEAN CORPUSCULAR HGB CONC 32.9 g/dl (31.0-37.0); MEAN PLATELET VOLUME 12.3 fl (7.0-11.0); MONO # 0.3 (0.1-0.6); MONO % 6.1 % (1.0-6.0); PLATELET COUNT 138 10^3/uL (120.0-450.0); RED CELL DISTRIBUTION WIDTH 13.2 % (11.5-14.5); WHITE BLOOD COUNT 5.2 10^3/ul (4.5-11.0)
[2016-09-22 07:27] LABS: ALKALINE PHOSPHATASE 100 U/L (38-133); ALT/SGPT 30 U/L (7-56); AST/SGOT 26 U/L (15-39); BILIRUBIN,TOTAL 0.3 mg/dL (0.2-1.3); BLOOD UREA NITROGEN 10 mg/dL (7-21); CALCIUM 8.3 mg/dL (8.4-10.5); CARBON DIOXIDE 26 mmol/L (21-33); CHLORIDE 106 mmol/L (98-107); CHOLESTEROL 138 mg/dL (130-200); GFR AFRICAN-AMERICAN > 60; GLUCOSE,RANDOM 92 mg/dL (70-110); POTASSIUM 3.8 mmol/L (3.6-5.0); SODIUM 138 mmol/L (132-148)
[2016-09-22 07:49] LABS: TROPONIN I < 0.01 ng/mL
[2016-09-22] MEDS: Naproxen 275 mg Tab PO SCH ×2 (09:13→17:02)
[2016-09-22] MEDS: oxyCODONE 80 mg ER Tab (oxyCONTIN) PO SCH ×2 (09:16→20:02)
[2016-09-22] MEDS: Pantoprazole 40 mg EC Tab PO SCH (09:20)
--- NOTE | 2016-09-22 09:54 | PN ---
DATE: 09/22/2016 REASON FOR CONSULTATION AND FOLLOWUP: Chest pain, COPD exacerbation. BRIEF CLINICAL HISTORY: This is a 51-year-old female with a past medical history of COPD, anxiety di sorder. Admitted here with chest pain for 2 days' duration and coughing and exacerbation of COPD. F eels still chest pain. It is continuous since then and increases on lifting her both hands and also tenderness. PHYSICAL EXAMINATION: VITAL SIGNS: Temperature afebrile, heart rate 77, blood pressure 108/74. HEENT: PERRLA. Extraocular muscles intact. NECK: Supple. No carotid bruits, no thyromegaly. CHEST: Clear to auscultation. HEART: S1, S2 regular. ABDOMEN: Soft. EXTREMITIES: Clubbing, cyanosis negative. BLOOD WORKUP: WBC 5. , hemoglobin 12, hematocrit 36.5, platelet count 138. Chemistry shows sodi um 130, potassium 3.8, chloride 106, carbon dioxide 26, anion gap of , BUN 10, creatinine 0.8. Troponin 0.01. EKG showed normal sinus, biatrial enlargement. IMPRESSION: Chest pain, atypical, so far no evidence of acute coronary syndrome, active tobacco abus e, chronic obstructive pulmonary disease, musculoskeletal chest pain. Because of multiple risk facto rs for coronary artery disease, patient is scheduled for a stress test today. Also, patient is on no nsteroidal anti-inflammatory. We will follow with you. Thank you, Dr. Hines, for providing us the opportunity in taking care of the patient. Rupert Gilliam MD cc: [id number] TT: 09/22/2016 09:53:03 Confirmation # [id number] Dictation # [id number]
[2016-09-22] MEDS: Sodium Chloride 0.9% 1,000 ML IV SCH ×2 (12:25→18:47)
--- NOTE | 2016-09-22 12:28 | CP.PCM.PN ---
<Carolann Bruce - Last Filed: 09/22/16 12:23> Subjective - Date & Time of Evaluation Date of Evaluation: 09/22/16 Time of Evaluation: 12:23 - Subjective Subjective: Note for Hospitalist Pt s&e. LAVERNE. Pain controlled. Denies F/C/N/V/D/CP/SOB. + amb, + void. Pt underwent echo today. Echo cancelled because ate food. Planned for tomorrow. Objective - Vital Signs/Intake and Output Vital Signs (last 24 hours): Temp Pulse Resp BP Pulse Ox 98.2 F 75 19 97/62 L 96 09/22/16 06:00 09/22/16 10:00 09/22/16 06:00 09/22/16 06:00 09/22/16 06:00 Intake and Output: 09/22/16 09/22/16 06:59 18:59 Intake Total 2220 Balance 2220 - Medications Medications: Current Medications Albuterol/Ipratropium (Duoneb 3 Mg/0.5 Mg (3 Ml) Ud) 3 ml IH TIDRESP PRN PRN Reason: Shortness of Breath Stop: 09/22/16 14:01 Alprazolam (Xanax) 1 mg PO TID PRN; Protocol PRN Reason: Anxiety Last Admin: 09/21/16 20:49 Dose: 1 mg Aspirin (Aspirin Chewable) 81 mg PO DAILY [facility] Last Admin: 09/22/16 09:14 Dose: 81 mg Docusate Sodium (Colace) 100 mg PO DAILY [facility] Last Admin: 09/22/16 09:14 Dose: 100 mg Guaifenesin (Robitussin) 100 mg PO Q4H PRN PRN Reason: Cough Hydrocortisone (Cortef) 5 mg PO DAILY [facility] Last Admin: 09/22/16 09:13 Dose: 5 mg Sodium Chloride (Sodium Chloride 0.9%) 1,000 mls @ 100 mls/hr IV .Q10H [facility] Last Admin: 09/21/16 16:11 Dose: 100 mls/hr Naproxen (Anaprox) 275 mg PO BID [facility] Last Admin: 09/22/16 09:13 Dose: 275 mg Ondansetron HCl (Zofran Inj) 4 mg IVP Q6H PRN PRN Reason: Nausea/Vomiting Oxycodone HCl (Oxycodone Immediate Release Tab) 30 mg PO BID PRN PRN Reason: Pain, severe (8-10) Last Admin: 09/22/16 05:17 Dose: 30 mg Oxycodone HCl (Oxycontin Extended Release Tab) 80 mg PO 799,1999 [facility] Last Admin: 09/22/16 09:16 Dose: 80 mg Pantoprazole Sodium (Protonix Ec Tab) 40 mg PO DAILY [facility] Last Admin: 09/22/16 09:20 Dose: 40 mg - Labs Labs: 09/22/16 06:30 09/22/16 06:30 PT 12.2 Seconds (9.9-11.8) H 09/21/16 12:30 INR 1.13 (0.93-1.08) H 09/21/16 12:30 APTT 26.0 Seconds (23.7-30.8) 09/21/16 12:30 - Constitutional Appears: No Acute Distress - Head Exam Head Exam: ATRAUMATIC, NORMAL INSPECTION, NORMOCEPHALIC - Eye Exam Eye Exam: EOMI, Normal appearance, PERRL Pupil Exam: NORMAL ACCOMODATION, PERRL - ENT Exam ENT Exam: Mucous Membranes Moist, Normal Exam - Neck Exam Neck Exam: Full ROM, Normal Inspection. absent: Lymphadenopathy - Respiratory Exam Respiratory Exam: Clear to Ausculation Bilateral, NORMAL BREATHING PATTERN. absent: Accessory Muscle Use, Respiratory Distress - Cardiovascular Exam Cardiovascular Exam: REGULAR RHYTHM, +S1, +S2. absent: Tachycardia, Murmur - GI/Abdominal Exam GI & Abdominal Exam: Soft, Normal Bowel Sounds. absent: Distended, Firm, Guarding, Tenderness - Extremities Exam Extremities Exam: Full ROM, Normal Capillary Refill, Normal Inspection. absent : Joint Swelling, Pedal Edema - Back Exam Back Exam: NORMAL INSPECTION - Neurological Exam Neurological Exam: Alert, Awake, CN II-XII Intact, Normal Gait, Oriented x3 - Psychiatric Exam Psychiatric exam: Normal Affect, Normal Mood - Skin Skin Exam: Dry, Intact, Normal Color, Warm Assessment and Plan - Assessment and Plan (Free Text) Assessment: 51 yo F w/PMHx of COPD, herniated disc, anxiety, and pelvic congestion syndrome presents with new onset Chest pain. Chest Pain Cardio consult : Stress test tomorrow. Keep NPO after midnight ASA 81 daily lipid panel : wnl repeat EKG in AM: NSR f/u Trop x2 trop: 0.01 BNP 58 f/u echo reads Hypotension IVF @100 COPD CXR: No active disease Duoneb prn Hydrocortison 10mg PO daily O2 via NC cough robutissin Anxiety xanax 1mg PO BID PRN Chronic back pain Pain management Oxycodone 80 daily PRN intermediate card tender smoker Nicoderm 14mg patch Smoking Cessation DVT/GI prophylaxis -protonix/SCD -zofran 4mg IVP q4h prn HH diet/ MPO after midnight Dispo: Possible DC tomorrow if Stress test normal DW attending <Rupert Abdi MD - Last Filed: 09/22/16 17:53> Objective - Vital Signs/Intake and Output Vital Signs (last 24 hours): Temp Pulse Resp BP Pulse Ox 98.2 F 78 19 97/62 L 96 09/22/16 06:00 09/22/16 14:00 09/22/16 06:00 09/22/16 06:00 09/22/16 06:00 Intake and Output: 09/22/16 09/22/16 06:59 18:59 Intake Total 2220 980 Balance 2220 980 - Medications Medications: Current Medications Alprazolam (Xanax) 1 mg PO TID PRN; Protocol PRN Reason: Anxiety Last Admin: 09/22/16 13:55 Dose: 1 mg Aspirin (Aspirin Chewable) 81 mg PO DAILY [facility] Last Admin: 09/22/16 09:14 Dose: 81 mg Docusate Sodium (Colace) 100 mg PO DAILY [facility] Last Admin: 09/22/16 09:14 Dose: 100 mg Guaifenesin (Robitussin) 100 mg PO Q4H PRN PRN Reason: Cough Hydrocortisone (Cortef) 5 mg PO DAILY [facility] Last Admin: 09/22/16 09:13 Dose: 5 mg Sodium Chloride (Sodium Chloride 0.9%) 1,000 mls @ 100 mls/hr IV .Q10H [facility] Last Admin: 09/22/16 12:25 Dose: Not Given Naproxen (Anaprox) 275 mg PO BID [facility] Last Admin: 09/22/16 17:02 Dose: 275 mg Ondansetron HCl (Zofran Inj) 4 mg IVP Q6H PRN PRN Reason: Nausea/Vomiting Oxycodone HCl (Oxycodone Immediate Release Tab) 30 mg PO BID PRN PRN Reason: Pain, severe (8-10) Last Admin: 09/22/16 17:02 Dose: 30 mg Oxycodone HCl (Oxycontin Extended Release Tab) 80 mg PO 0800,1999 [facility] Last Admin: 09/22/16 09:16 Dose: 80 mg Pantoprazole Sodium (Protonix Ec Tab) 40 mg PO DAILY [facility] Last Admin: 09/22/16 09:20 Dose: 40 mg - Labs Labs: 09/22/16 06:30 09/22/16 06:30 PT 12.2 Seconds (9.9-11.8) H 09/21/16 12:30 INR 1.13 (0.93-1.08) H 09/21/16 12:30 APTT 26.0 Seconds (23.7-30.8) 09/21/16 12:30 Attending/Attestation - Attestation I have personally seen and examined this patient.: Yes I have fully participated in the care of the patient.: Yes I have reviewed all pertinent clinical information, including history, physical exam and plan: Yes Notes (Text): Patient was seen and examined .Agreed with resident assessment and plan. Patient chest pain is atypical, serial troponins are normal, will follow up Echo , she is scheduled for stress test tomorrow Patient gave history of right arm weakness but there is no focal deficit, she is able to do her routine work with the arm, CT head no new infarct or bleeding , has history of multiple vague symptoms in the previous hospitalization on narcotic, we will continue monitoring. Management plan was discussed in detail with patient Education was provided. 09/22/16 17:53
--- NOTE | 2016-09-22 14:21 | CT ---
PROCEDURE: CT HEAD WITHOUT CONTRAST. HISTORY: rule out CVA COMPARISON: None available. TECHNIQUE: Axial computed tomography images were obtained through the head/brain without intravenous contrast. Radiation dose: Total exam DLP = 711.43 mGy-cm. This CT exam was performed using one or more of the following dose reduction techniques: Automated exposure control, adjustment of the mA and/or kV according to patient size, and/or use of iterative reconstruction technique. FINDINGS: HEMORRHAGE: No acute parenchymal, subarachnoid or extra-axial hemorrhage. BRAIN: No evidence of large acute infarct however there are minor chronic periventricular white matter ischemic changes. A few tiny chronic bilateral basal nuclei lacunar type infarcts felt to be present. . . Acute infarct suspected clinically recommend follow-up emergent MRI, if patient is within a window -eligible for tPA therapy. If not, MRI could be performed as soon as possible. There is mild localized cortical atrophic changes of the frontal lobes at the vertex. . Ventricular and sulcal size are otherwise within range of normal. Some minor asymmetry of the lateral ventricles right-sided which is slightly larger than the left felt to represent an anatomic variation. . Minor vascular calcifications are present. CALVARIUM: There are no acute calvarial fracture seen. PARANASAL SINUSES: The visualized paranasal sinuses are well-developed. Mild mucosal thickening present within the sphenoid sinus. MASTOID AIR CELLS: Unremarkable as visualized. No inflammatory changes. OTHER FINDINGS: None. IMPRESSION: Minor chronic periventricular white matter ischemic changes and suspected few chronic bilateral basal nuclei lacunar type infarcts. The followup studies could be performed if acute infarct is suspected clinically as above.
--- NOTE | 2016-09-22 16:47 | CARD ---
APPROVED REPORT EKG Measurement Heart [id number] [place] 120P75 [id number] <Conclusion> Normal sinus rhythm Normal ECG
--- NOTE | 2016-09-22 19:27 | CARD ---
APPROVED REPORT EXAM: Two-dimensional and M-mode echocardiogram with Doppler and color Doppler. INDICATION COPD/CP/RVSP 2D DIMENSIONS Left Atrium (2D)3.2 (1.6-4.0cm)IVSd0.9 (0.7-1.1cm) LVDd3.7 (3.9-5.9cm)PWd0.9 (0.7-1.1cm) LVDs2.7 (2.5-4.0cm)FS (%) 27.4 % LVEF (%)54.2 (>50%) M-Mode DIMENSIONS Aortic Root2.90 (2.2-3.7cm)Aortic Cusp Exc.1.80 (1.5-2.0cm) Aortic Valve AoV Peak Rnjpwieb972.0cm/Jono Peak GR.7mmHg Mitral Valve MV E Mcafwpid64.7cm/sMV A Drroteoj37.1cm/sE/A ratio1.5 TDI Lateral E' Peak V11.50cm/sMedial E' Peak V9.85cm/sE/Lateral E'7.2 E/Medial E'8.4 Pulmonary Valve PV Peak Imblyifx83.8cm/sPV Peak Grad.2mmHg Tricuspid Valve TR Peak Tcabevcl441xj/sRAP PDKNRRDC74ojUlAO Peak Gr.35mmHg [id number] LEFT VENTRICLE The left ventricle is normal size. There is normal left ventricular wall thickness. The left ventricular function is normal.EF-55% There is normal LV segmental wall motion. The left ventricular diastolic function is normal. No left ventricle thrombus noted on this study. There is no ventricular septal defect visualized. There is no left ventricular aneurysm. There is no mass noted in the left ventricle. RIGHT VENTRICLE The right ventricle is normal size. There is normal right ventricular wall thickness. The right ventricular systolic function is normal. ATRIA The left atrium size is normal. The right atrium size is normal. The atrial septum is aneurysmal .A Tiny PFO with Right to left Shunt intermittently noted, hemodynamically not significant. AORTIC VALVE The aortic valve is normal in structure. There is trace aortic regurgitation. There is no aortic valvular stenosis. There is no aortic valvular vegetation. MITRAL VALVE The mitral valve is thickened but opens well. Mitral regurgitation is trace to mild. There is no mitral valve stenosis. There is no evidence of mitral valve prolapse. TRICUSPID VALVE The tricuspid valve leaflets are thickened , but open well. There is mild tricuspid regurgitation.RVSP-45 mmof hg. There is no tricuspid valve stenosis. There is no tricuspid valve prolapse or vegetation. PULMONIC VALVE The pulmonary valve is normal in structure. There is trace pulmonic valvular regurgitation. There is no pulmonic valvular stenosis. GREAT VESSELS The aortic root is normal in size. The ascending aorta is normal in size. The pulmonary artery is normal. The IVC is normal in size and collapses >50% with inspiration. PERICARDIAL EFFUSION There is no pleural effusion. There is no pericardial effusion. <Conclusion> Noprmal Chambrr Size. EF-55% The atrial septum is aneurysmal .A Tiny PFO with Right to left Shunt intermittently noted, hemodynamically not significant. There is trace aortic regurgitation. Mitral regurgitation is trace to mild. There is mild tricuspid regurgitation.RVSP-45 mmof hg. There is trace pulmonic valvular regurgitation.
[2016-09-23 00:48] VITALS: RESP 18
[2016-09-23] MEDS: oxyCODONE 30 mg Immediate Release Tab PO PRN ×2 (04:58→15:00)
[2016-09-23] MEDS: Sodium Chloride 0.9% 1,000 ML IV SCH (04:58)
[2016-09-23 05:53] VITALS: BP 108/66; TEMP 97; O2SAT 95
[2016-09-23] MEDS: oxyCODONE 80 mg ER Tab (oxyCONTIN) PO SCH (08:17)
[2016-09-23 09:48] LABS: T4 7.5 ug/dL (5.5-11.0)
[2016-09-23 10:01] LABS: T3 1.39 ng/mL (0.97-1.69)
[2016-09-23] MEDS: Naproxen 275 mg Tab PO SCH ×2 (11:02→18:39)
[2016-09-23] MEDS: Pantoprazole 40 mg EC Tab PO SCH ×2 (11:05→11:09)
[2016-09-23] MEDS ORDERED: Aminophylline 25 mg/ml Inj ONE (11:36)
--- NOTE | 2016-09-23 14:45 | PN ---
DATE: 09/23/2016 REASON FOR CONSULTATION: Followup chest pain, chronic obstructive pulmonary disease exacerbation. BRIEF CLINICAL HISTORY: This is a 51-year-old female with past medical history significant for COPD, anxiety disorder, admitted here with 2 days' duration of coughing with exacerbation of COPD, feels c hest pain, heaviness in the chest, feels something is tightened in the chest. Has continued increase in ____ coughing. PHYSICAL EXAMINATION: VITAL SIGNS: Temperature afebrile, heart rate 70, blood pressure 108/86. HEENT: PERRLA. Extraocular muscles intact. NECK: Supple. No carotid bruit or thyromegaly. CHEST: Clear to auscultation. HEART: S1, S2 regular. ABDOMEN: Soft. EXTREMITIES: Clubbing and cyanosis negative. LABORATORY DATA: Blood workup as follows: WBC ____ hemoglobin 12, hematocrit 36.5, platelet count 138. Chemistry shows sodium 130, potassium 3.8, chloride 106, carbon dioxide 26, anion gap of 10, BU N 10, creatinine 0.8, TSH 4.74. IMPRESSION: Borderline hypothyroidism, chronic obstructive pulmonary disease, no evidence of acute c oronary syndrome. Troponin negative. The patient had echocardiography done yesterday that showed ej ection fraction 55%, 18 tiny PFOs noted with hemodynamically insignificant trace aortic regurgitation , trace to mild mitral regurgitation, mild tricuspid regurgitation, RV systolic pressure 45. Because of multiple risk factors for coronary disease with chest pain ____ acute coronary syndrome, but havi ng multiple risk factors, suggest a stress thallium today. The patient is going for a stress test to day. Further recommendation after the stress test. We will follow with you. Thank you, Dr. Hines, for providing the opportunity in taking care of the patient. As mentioned a tiny PFO noted, hemodynamically insignificant, aggressive treatment of COPD. We will follow with you. Rupert Gilliam MD cc: [id number] TT: 09/23/2016 14:45:13 Confirmation # [id number] Dictation # [id number]
--- NOTE | 2016-09-23 18:19 | CP.PCM.DIS ---
<Beto Noyola - Last Filed: 09/23/16 18:18> Provider - Provider Date of Admission: 09/21/16 14:18 Attending physician: Rupert Abdi MD Time Spent in preparation of Discharge (in minutes): 40 Hospital Course - Lab Results Lab Results: Micro Results 09/21/16 15:50 Urine,Clean Catch Urine Culture - Final <10,000 CFU/ML. MULTIPLE SPECIES. PROBABLE CONTAMINATION. Most Recent Lab Values WBC 5.2 10^3/ul (4.5-11.0) 09/22/16 06:30 RBC 3.93 10^6/uL (3.5-6.1) 09/22/16 06:30 Hgb 12.0 gm/dL (12.0-16.0) 09/22/16 06:30 Hct 36.5 % (36.0-48.0) 09/22/16 06:30 MCV 92.9 fL (80.0-105.0) 09/22/16 06:30 MCH 30.5 pg (25.0-35.0) 09/22/16 06:30 MCHC 32.9 g/dl (31.0-37.0) 09/22/16 06:30 RDW 13.2 % (11.5-14.5) 09/22/16 06:30 Plt Count 138 10^3/uL (120.0-450.0) 09/22/16 06:30 MPV 12.3 fl (7.0-11.0) H 09/22/16 06:30 Gran % 48.3 % (50.0-68.0) L 09/22/16 06:30 Lymph % (Auto) 41.6 % (22.0-35.0) H 09/22/16 06:30 [place] % (Auto) 6.1 % (1.0-6.0) H 09/22/16 06:30 Eos % (Auto) 3.4 % (1.5-5.0) 09/22/16 06:30 Baso % (Auto) 0.6 % (0.0-3.0) 09/22/16 06:30 Gran # 2.53 (1.4-6.5) 09/22/16 06:30 Lymph # 2.2 (1.2-3.4) 09/22/16 06:30 [place] # 0.3 (0.1-0.6) 09/22/16 06:30 Eos # 0.2 (0.0-0.7) 09/22/16 06:30 Baso # 0.03 K/mm3 (0.0-2.0) 09/22/16 06:30 ESR 19 mm/hr (0.0-20.0) 09/21/16 12:30 PT 12.2 Seconds (9.9-11.8) H 09/21/16 12:30 INR 1.13 (0.93-1.08) H 09/21/16 12:30 APTT 26.0 Seconds (23.7-30.8) 09/21/16 12:30 pO2 59 mm/Hg (30-55) H 09/21/16 12:30 VBG pH 7.35 (7.32-7.43) 09/21/16 12:30 VBG pCO2 51.0 (40-60) 09/21/16 12:30 VBG HCO3 28.2 mmol/l (21-28) H 09/21/16 12:30 VBG Total CO2 29.8 mmol.L (22-28) H 09/21/16 12:30 VBG O2 Sat (Calc) 91.9 % (40-65) H 09/21/16 12:30 VBG Base Excess 1.7 mmol/L (0.0-2.0) 09/21/16 12:30 VBG Potassium 4.0 mmol/L (3.6-5.2) 09/21/16 12:30 Sodium 137.0 mmol/L (132-148) 09/21/16 12:30 Chloride 107.0 mmol/L (98-107) 09/21/16 12:30 Glucose 99 mg/dl (65-105) 09/21/16 12:30 Lactate 1.2 mmol/L (0.7-2.1) 09/21/16 12:30 FiO2 21.0 % 09/21/16 12:30 Sodium 138 mmol/L (132-148) 09/22/16 06:30 Potassium 3.8 mmol/L (3.6-5.0) 09/22/16 06:30 Chloride 106 mmol/L (98-107) 09/22/16 06:30 Carbon Dioxide 26 mmol/L (21-33) 09/22/16 06:30 Anion Gap 10 (10-20) 09/22/16 06:30 BUN 10 mg/dL (7-21) 09/22/16 06:30 Creatinine 0.8 mg/dL (0.5-1.4) 09/22/16 06:30 Est GFR ( Amer) > 60 09/22/16 06:30 Est GFR (Non-Af Amer) > 60 09/22/16 06:30 Random Glucose 92 mg/dL (70-110) 09/22/16 06:30 Calcium 8.3 mg/dL (8.4-10.5) L 09/22/16 06:30 Phosphorus 3.9 mg/dL (2.5-4.5) 09/21/16 12:30 Magnesium 2.0 mg/dL (1.7-2.2) 09/21/16 12:30 Total Bilirubin 0.3 mg/dL (0.2-1.3) 09/22/16 06:30 AST 26 U/L (15-39) 09/22/16 06:30 ALT 30 U/L (7-56) 09/22/16 06:30 Alkaline Phosphatase 100 U/L (38-133) 09/22/16 06:30 Lactate Dehydrogenase 371 U/L (333-699) 09/21/16 12:30 Total Creatine Kinase 40 U/L (35-230) 09/21/16 12:30 Troponin I < 0.01 ng/mL 09/22/16 06:30 C-React Prot High Sens 0.32 mg/L (1.00-3.00) L 09/21/16 12:30 NT-Pro-B Natriuret Pep 58.3 pg/mL (0-450) 09/21/16 12:30 Total Protein 6.0 g/dL (5.8-8.3) 09/22/16 06:30 Albumin 3.0 g/dL (3.0-4.8) 09/22/16 06:30 Globulin 3.0 gm/dL 09/22/16 06:30 Albumin/Globulin Ratio 1.0 (1.1-1.8) L 09/22/16 06:30 Triglycerides 132 mg/dL (35-160) 09/22/16 06:30 Cholesterol 138 mg/dL (130-200) 09/22/16 06:30 LDL Cholesterol Direct 87 mg/dL (0-129) 09/22/16 06:30 HDL Cholesterol 35 mg/dL (29-60) 09/22/16 06:30 Procalcitonin < 0.05 NG/ML (0.19-0.49) L 09/21/16 12:30 Thyroxine (T4) 7.5 ug/dL (5.5-11.0) 09/23/16 09:00 Total T3 1.39 ng/mL (0.97-1.69) 09/23/16 09:00 TSH 3rd Generation 4.74 mIU/mL (0.46-4.68) H 09/22/16 06:30 Venous Blood Potassium 4.0 mmol/L (3.6-5.2) 09/21/16 12:30 Urine Color Yellow (YELLOW) 09/21/16 15:50 Urine Appearance Clear (CLEAR) 09/21/16 15:50 Urine pH 7.5 (4.7-8.0) 09/21/16 15:50 Ur Specific [place] 1.010 (1.005-1.035) 09/21/16 15:50 Urine Protein Negative mg/dL (<30 mg/dL) 09/21/16 15:50 Urine Glucose (UA) Negative mg/dL (NEGATIVE) 09/21/16 15:50 Urine Ketones Negative mg/dL (NEGATIVE) 09/21/16 15:50 Urine Blood Trace-intact (NEGATIVE) H 09/21/16 15:50 Urine Nitrate Negative (NEGATIVE) 09/21/16 15:50 Urine Bilirubin Negative (NEGATIVE) 09/21/16 15:50 Urine Urobilinogen 0.2 E.U./dL (<1 E.U./dL) 09/21/16 15:50 Ur Leukocyte Esterase Negative [place]/uL (NEGATIVE) 09/21/16 15:50 Urine RBC 1 - 3 /hpf (0-2) 09/21/16 15:50 Urine WBC 0 - 2 /hpf (0-6) 09/21/16 15:50 Ur Epithelial Cells 3 - 4 /hpf (0-5) 09/21/16 15:50 Urine Bacteria Few (NEG) 09/21/16 15:50 Urine Opiates Screen Positive (NEGATIVE) H 09/21/16 16:02 Urine Methadone Screen Negative (NEGATIVE) 09/21/16 16:02 Ur Barbiturates Screen Negative (NEGATIVE) 09/21/16 16:02 Ur Phencyclidine Scrn Negative (NEGATIVE) 09/21/16 16:02 Ur Amphetamines Screen Negative (NEGATIVE) 09/21/16 16:02 U Benzodiazepines Scrn Positive (NEGATIVE) H 09/21/16 16:02 U Oth Cocaine Metabols Negative (NEGATIVE) 09/21/16 16:02 U Cannabinoids Screen Negative (NEGATIVE) 09/21/16 16:02 Alcohol, Quantitative < 10 mg/dL (0-10) 09/21/16 12:30 Influenza Typ A,B (EIA) Negative for flu a/b (NEGATIVE) 09/21/16 12:30 Discharge Exam - Head Exam Head Exam: ATRAUMATIC, NORMAL INSPECTION, NORMOCEPHALIC Discharge Plan - Discharge Medications Prescriptions: Naproxen [Anaprox] 275 mg PO BID #30 tab - Follow Up Plan Condition: FAIR Disposition: HOME/ ROUTINE Instructions: Chest Pain (DC), Chest Pain (GEN) Additional Instructions: Patient was instructed to follow up with PMD within a week of hospital discharge Patient instructed to follow up with Dr. Gilliam outpatiently Repeat thyroid function test outpatiently in 6 weeks Patient will resume home medications and start taking 81mg ASA PO daily Smoking cessation and healthy lifestyle modifications advised Go to the nearest ED if symptoms return or worsen Referrals: Rupert Gilliam MD [Staff Provider] - Jacob Clark MD [Family Provider] - <Carolann Bruce - Last Filed: 09/24/16 14:04> Provider - Provider Date of Admission: 09/21/16 14:18 Attending physician: Rupert Abdi MD Time Spent in preparation of Discharge (in minutes): 44 Hospital Course - Lab Results Lab Results: Micro Results 09/21/16 15:50 Urine,Clean Catch Urine Culture - Final <10,000 CFU/ML. MULTIPLE SPECIES. PROBABLE CONTAMINATION. Most Recent Lab Values WBC 5.2 10^3/ul (4.5-11.0) 09/22/16 06:30 RBC 3.93 10^6/uL (3.5-6.1) 09/22/16 06:30 Hgb 12.0 gm/dL (12.0-16.0) 09/22/16 06:30 Hct 36.5 % (36.0-48.0) 09/22/16 06:30 MCV 92.9 fL (80.0-105.0) 09/22/16 06:30 MCH 30.5 pg (25.0-35.0) 09/22/16 06:30 MCHC 32.9 g/dl (31.0-37.0) 09/22/16 06:30 RDW 13.2 % (11.5-14.5) 09/22/16 06:30 Plt Count 138 10^3/uL (120.0-450.0) 09/22/16 06:30 MPV 12.3 fl (7.0-11.0) H 09/22/16 06:30 Gran % 48.3 % (50.0-68.0) L 09/22/16 06:30 Lymph % (Auto) 41.6 % (22.0-35.0) H 09/22/16 06:30 [place] % (Auto) 6.1 % (1.0-6.0) H 09/22/16 06:30 Eos % (Auto) 3.4 % (1.5-5.0) 09/22/16 06:30 Baso % (Auto) 0.6 % (0.0-3.0) 09/22/16 06:30 Gran # 2.53 (1.4-6.5) 09/22/16 06:30 Lymph # 2.2 (1.2-3.4) 09/22/16 06:30 [place] # 0.3 (0.1-0.6) 09/22/16 06:30 Eos # 0.2 (0.0-0.7) 09/22/16 06:30 Baso # 0.03 K/mm3 (0.0-2.0) 09/22/16 06:30 ESR 19 mm/hr (0.0-20.0) 09/21/16 12:30 PT 12.2 Seconds (9.9-11.8) H 09/21/16 12:30 INR 1.13 (0.93-1.08) H 09/21/16 12:30 APTT 26.0 Seconds (23.7-30.8) 09/21/16 12:30 pO2 59 mm/Hg (30-55) H 09/21/16 12:30 VBG pH 7.35 (7.32-7.43) 09/21/16 12:30 VBG pCO2 51.0 (40-60) 09/21/16 12:30 VBG HCO3 28.2 mmol/l (21-28) H 09/21/16 12:30 VBG Total CO2 29.8 mmol.L (22-28) H 09/21/16 12:30 VBG O2 Sat (Calc) 91.9 % (40-65) H 09/21/16 12:30 VBG Base Excess 1.7 mmol/L (0.0-2.0) 09/21/16 12:30 VBG Potassium 4.0 mmol/L (3.6-5.2) 09/21/16 12:30 Sodium 137.0 mmol/L (132-148) 09/21/16 12:30 Chloride 107.0 mmol/L (98-107) 09/21/16 12:30 Glucose 99 mg/dl (65-105) 09/21/16 12:30 Lactate 1.2 mmol/L (0.7-2.1) 09/21/16 12:30 FiO2 21.0 % 09/21/16 12:30 Sodium 138 mmol/L (132-148) 09/22/16 06:30 Potassium 3.8 mmol/L (3.6-5.0) 09/22/16 06:30 Chloride 106 mmol/L (98-107) 09/22/16 06:30 Carbon Dioxide 26 mmol/L (21-33) 09/22/16 06:30 Anion Gap 10 (10-20) 09/22/16 06:30 BUN 10 mg/dL (7-21) 09/22/16 06:30 Creatinine 0.8 mg/dL (0.5-1.4) 09/22/16 06:30 Est GFR ( Amer) > 60 09/22/16 06:30 Est GFR (Non-Af Amer) > 60 09/22/16 06:30 Random Glucose 92 mg/dL (70-110) 09/22/16 06:30 Calcium 8.3 mg/dL (8.4-10.5) L 09/22/16 06:30 Phosphorus 3.9 mg/dL (2.5-4.5) 09/21/16 12:30 Magnesium 2.0 mg/dL (1.7-2.2) 09/21/16 12:30 Total Bilirubin 0.3 mg/dL (0.2-1.3) 09/22/16 06:30 AST 26 U/L (15-39) 09/22/16 06:30 ALT 30 U/L (7-56) 09/22/16 06:30 Alkaline Phosphatase 100 U/L (38-133) 09/22/16 06:30 Lactate Dehydrogenase 371 U/L (333-699) 09/21/16 12:30 Total Creatine Kinase 40 U/L (35-230) 09/21/16 12:30 Troponin I < 0.01 ng/mL 09/22/16 06:30 C-React Prot High Sens 0.32 mg/L (1.00-3.00) L 09/21/16 12:30 NT-Pro-B Natriuret Pep 58.3 pg/mL (0-450) 09/21/16 12:30 Total Protein 6.0 g/dL (5.8-8.3) 09/22/16 06:30 Albumin 3.0 g/dL (3.0-4.8) 09/22/16 06:30 Globulin 3.0 gm/dL 09/22/16 06:30 Albumin/Globulin Ratio 1.0 (1.1-1.8) L 09/22/16 06:30 Triglycerides 132 mg/dL (35-160) 09/22/16 06:30 Cholesterol 138 mg/dL (130-200) 09/22/16 06:30 LDL Cholesterol Direct 87 mg/dL (0-129) 09/22/16 06:30 HDL Cholesterol 35 mg/dL (29-60) 09/22/16 06:30 Procalcitonin < 0.05 NG/ML (0.19-0.49) L 09/21/16 12:30 Thyroxine (T4) 7.5 ug/dL (5.5-11.0) 09/23/16 09:00 Total T3 1.39 ng/mL (0.97-1.69) 09/23/16 09:00 TSH 3rd Generation 4.74 mIU/mL (0.46-4.68) H 09/22/16 06:30 Venous Blood Potassium 4.0 mmol/L (3.6-5.2) 09/21/16 12:30 Urine Color Yellow (YELLOW) 09/21/16 15:50 Urine Appearance Clear (CLEAR) 09/21/16 15:50 Urine pH 7.5 (4.7-8.0) 09/21/16 15:50 Ur Specific [place] 1.010 (1.005-1.035) 09/21/16 15:50 Urine Protein Negative mg/dL (<30 mg/dL) 09/21/16 15:50 Urine Glucose (UA) Negative mg/dL (NEGATIVE) 09/21/16 15:50 Urine Ketones Negative mg/dL (NEGATIVE) 09/21/16 15:50 Urine Blood Trace-intact (NEGATIVE) H 09/21/16 15:50 Urine Nitrate Negative (NEGATIVE) 09/21/16 15:50 Urine Bilirubin Negative (NEGATIVE) 09/21/16 15:50 Urine Urobilinogen 0.2 E.U./dL (<1 E.U./dL) 09/21/16 15:50 Ur Leukocyte Esterase Negative [place]/uL (NEGATIVE) 09/21/16 15:50 Urine RBC 1 - 3 /hpf (0-2) 09/21/16 15:50 Urine WBC 0 - 2 /hpf (0-6) 09/21/16 15:50 Ur Epithelial Cells 3 - 4 /hpf (0-5) 09/21/16 15:50 Urine Bacteria Few (NEG) 09/21/16 15:50 Urine Opiates Screen Positive (NEGATIVE) H 09/21/16 16:02 Urine Methadone Screen Negative (NEGATIVE) 09/21/16 16:02 Ur Barbiturates Screen Negative (NEGATIVE) 09/21/16 16:02 Ur Phencyclidine Scrn Negative (NEGATIVE) 09/21/16 16:02 Ur Amphetamines Screen Negative (NEGATIVE) 09/21/16 16:02 U Benzodiazepines Scrn Positive (NEGATIVE) H 09/21/16 16:02 U Oth Cocaine Metabols Negative (NEGATIVE) 09/21/16 16:02 U Cannabinoids Screen Negative (NEGATIVE) 09/21/16 16:02 Alcohol, Quantitative < 10 mg/dL (0-10) 09/21/16 12:30 Influenza Typ A,B (EIA) Negative for flu a/b (NEGATIVE) 09/21/16 12:30 - Hospital Course Hospital Course: 51 yo F w/PMHx of COPD, herniated disc, anxiety, and pelvic congestion syndrome presents to the ED with chest pain that radiates to her R shoulder and dizziness , as if about to pass out. Patient states chest pain is not necessarily worse with cough (which is chronic) though possibly worse with inspiration. Pain lasted for 15 min. Pt also reports SOB, coughing with bloody sputum last few days. No fever but has body aches. Denies vomiting,hematemsis, syncopy, LOC, vision changes, urinary/bowel changes, or other symptoms. Pt reports that this is the first time having chest pain like this. Pt had recent admission for COPD in 08/2016. Echo and stress test were normal. Troponin neg. Pt was cleared by Apparel Machinery Instructor for DC. <Rupetr Abdi MD - Last Filed: 09/24/16 16:09> Provider - Provider Date of Admission: 09/21/16 14:18 Attending physician: Rupert Abdi MD Hospital Course - Lab Results Lab Results: Micro Results 09/21/16 15:50 Urine,Clean Catch Urine Culture - Final <10,000 CFU/ML. MULTIPLE SPECIES. PROBABLE CONTAMINATION. Most Recent Lab Values WBC 5.2 10^3/ul (4.5-11.0) 09/22/16 06:30 RBC 3.93 10^6/uL (3.5-6.1) 09/22/16 06:30 Hgb 12.0 gm/dL (12.0-16.0) 09/22/16 06:30 Hct 36.5 % (36.0-48.0) 09/22/16 06:30 MCV 92.9 fL (80.0-105.0) 09/22/16 06:30 MCH 30.5 pg (25.0-35.0) 09/22/16 06:30 MCHC 32.9 g/dl (31.0-37.0) 09/22/16 06:30 RDW 13.2 % (11.5-14.5) 09/22/16 06:30 Plt Count 138 10^3/uL (120.0-450.0) 09/22/16 06:30 MPV 12.3 fl (7.0-11.0) H 09/22/16 06:30 Gran % 48.3 % (50.0-68.0) L 09/22/16 06:30 Lymph % (Auto) 41.6 % (22.0-35.0) H 09/22/16 06:30 [place] % (Auto) 6.1 % (1.0-6.0) H 09/22/16 06:30 Eos % (Auto) 3.4 % (1.5-5.0) 09/22/16 06:30 Baso % (Auto) 0.6 % (0.0-3.0) 09/22/16 06:30 Gran # 2.53 (1.4-6.5) 09/22/16 06:30 Lymph # 2.2 (1.2-3.4) 09/22/16 06:30 [place] # 0.3 (0.1-0.6) 09/22/16 06:30 Eos # 0.2 (0.0-0.7) 09/22/16 06:30 Baso # 0.03 K/mm3 (0.0-2.0) 09/22/16 06:30 ESR 19 mm/hr (0.0-20.0) 09/21/16 12:30 PT 12.2 Seconds (9.9-11.8) H 09/21/16 12:30 INR 1.13 (0.93-1.08) H 09/21/16 12:30 APTT 26.0 Seconds (23.7-30.8) 09/21/16 12:30 pO2 59 mm/Hg (30-55) H 09/21/16 12:30 VBG pH 7.35 (7.32-7.43) 09/21/16 12:30 VBG pCO2 51.0 (40-60) 09/21/16 12:30 VBG HCO3 28.2 mmol/l (21-28) H 09/21/16 12:30 VBG Total CO2 29.8 mmol.L (22-28) H 09/21/16 12:30 VBG O2 Sat (Calc) 91.9 % (40-65) H 09/21/16 12:30 VBG Base Excess 1.7 mmol/L (0.0-2.0) 09/21/16 12:30 VBG Potassium 4.0 mmol/L (3.6-5.2) 09/21/16 12:30 Sodium 137.0 mmol/L (132-148) 09/21/16 12:30 Chloride 107.0 mmol/L (98-107) 09/21/16 12:30 Glucose 99 mg/dl (65-105) 09/21/16 12:30 Lactate 1.2 mmol/L (0.7-2.1) 09/21/16 12:30 FiO2 21.0 % 09/21/16 12:30 Sodium 138 mmol/L (132-148) 09/22/16 06:30 Potassium 3.8 mmol/L (3.6-5.0) 09/22/16 06:30 Chloride 106 mmol/L (98-107) 09/22/16 06:30 Carbon Dioxide 26 mmol/L (21-33) 09/22/16 06:30 Anion Gap 10 (10-20) 09/22/16 06:30 BUN 10 mg/dL (7-21) 09/22/16 06:30 Creatinine 0.8 mg/dL (0.5-1.4) 09/22/16 06:30 Est GFR ( Amer) > 60 09/22/16 06:30 Est GFR (Non-Af Amer) > 60 09/22/16 06:30 Random Glucose 92 mg/dL (70-110) 09/22/16 06:30 Calcium 8.3 mg/dL (8.4-10.5) L 09/22/16 06:30 Phosphorus 3.9 mg/dL (2.5-4.5) 09/21/16 12:30 Magnesium 2.0 mg/dL (1.7-2.2) 09/21/16 12:30 Total Bilirubin 0.3 mg/dL (0.2-1.3) 09/22/16 06:30 AST 26 U/L (15-39) 09/22/16 06:30 ALT 30 U/L (7-56) 09/22/16 06:30 Alkaline Phosphatase 100 U/L (38-133) 09/22/16 06:30 Lactate Dehydrogenase 371 U/L (333-699) 09/21/16 12:30 Total Creatine Kinase 40 U/L (35-230) 09/21/16 12:30 Troponin I < 0.01 ng/mL 09/22/16 06:30 C-React Prot High Sens 0.32 mg/L (1.00-3.00) L 09/21/16 12:30 NT-Pro-B Natriuret Pep 58.3 pg/mL (0-450) 09/21/16 12:30 Total Protein 6.0 g/dL (5.8-8.3) 09/22/16 06:30 Albumin 3.0 g/dL (3.0-4.8) 09/22/16 06:30 Globulin 3.0 gm/dL 09/22/16 06:30 Albumin/Globulin Ratio 1.0 (1.1-1.8) L 09/22/16 06:30 Triglycerides 132 mg/dL (35-160) 09/22/16 06:30 Cholesterol 138 mg/dL (130-200) 09/22/16 06:30 LDL Cholesterol Direct 87 mg/dL (0-129) 09/22/16 06:30 HDL Cholesterol 35 mg/dL (29-60) 09/22/16 06:30 Procalcitonin < 0.05 NG/ML (0.19-0.49) L 09/21/16 12:30 Thyroxine (T4) 7.5 ug/dL (5.5-11.0) 09/23/16 09:00 Total T3 1.39 ng/mL (0.97-1.69) 09/23/16 09:00 TSH 3rd Generation 4.74 mIU/mL (0.46-4.68) H 09/22/16 06:30 Venous Blood Potassium 4.0 mmol/L (3.6-5.2) 09/21/16 12:30 Urine Color Yellow (YELLOW) 09/21/16 15:50 Urine Appearance Clear (CLEAR) 09/21/16 15:50 Urine pH 7.5 (4.7-8.0) 09/21/16 15:50 Ur Specific [place] 1.010 (1.005-1.035) 09/21/16 15:50 Urine Protein Negative mg/dL (<30 mg/dL) 09/21/16 15:50 Urine Glucose (UA) Negative mg/dL (NEGATIVE) 09/21/16 15:50 Urine Ketones Negative mg/dL (NEGATIVE) 09/21/16 15:50 Urine Blood Trace-intact (NEGATIVE) H 09/21/16 15:50 Urine Nitrate Negative (NEGATIVE) 09/21/16 15:50 Urine Bilirubin Negative (NEGATIVE) 09/21/16 15:50 Urine Urobilinogen 0.2 E.U./dL (<1 E.U./dL) 09/21/16 15:50 Ur Leukocyte Esterase Negative [place]/uL (NEGATIVE) 09/21/16 15:50 Urine RBC 1 - 3 /hpf (0-2) 09/21/16 15:50 Urine WBC 0 - 2 /hpf (0-6) 09/21/16 15:50 Ur Epithelial Cells 3 - 4 /hpf (0-5) 09/21/16 15:50 Urine Bacteria Few (NEG) 09/21/16 15:50 Urine Opiates Screen Positive (NEGATIVE) H 09/21/16 16:02 Urine Methadone Screen Negative (NEGATIVE) 09/21/16 16:02 Ur Barbiturates Screen Negative (NEGATIVE) 09/21/16 16:02 Ur Phencyclidine Scrn Negative (NEGATIVE) 09/21/16 16:02 Ur Amphetamines Screen Negative (NEGATIVE) 09/21/16 16:02 U Benzodiazepines Scrn Positive (NEGATIVE) H 09/21/16 16:02 U Oth Cocaine Metabols Negative (NEGATIVE) 09/21/16 16:02 U Cannabinoids Screen Negative (NEGATIVE) 09/21/16 16:02 Alcohol, Quantitative < 10 mg/dL (0-10) 09/21/16 12:30 Influenza Typ A,B (EIA) Negative for flu a/b (NEGATIVE) 09/21/16 12:30 Attending/Attestation - Attestation I have personally seen and examined this patient.: Yes I have fully participated in the care of the patient.: Yes I have reviewed all pertinent clinical information, including history, physical exam and plan: Yes Notes (Text): Patient was seen and examined with medical supply technician .Agreed with resident assessment and plan. 51 yo F w/PMHx of COPD, herniated disc, anxiety, and pelvic congestion syndrome was admitted with atypical chest pain,EKG was negative for ischemic changes, serial troponins were normal.Patient underwent nuclear stress today which was negative for any ischemia. Patient was incidentally found to have small PFO on Echo, this finding was discussed in detail with her. Patient TSH was mildly elevated but T 4 was normal, need repeat Thyroid function test in 6-8 weeks. Management plan was discussed in detail with patient Education was provided.
[2016-09-23 19:10] VITALS: PULSE 78
--- NOTE | 2016-09-23 23:42 | CARD ---
APPROVED REPORT Protocol: LEXISCAN Test Type: Lexiscan Sestamibi Stress Test Attending Physician: Dr. Rupert Lamb Referring Physician: Dr. Trinidad Emery Test Indications: Chest Pain Height:5 ft 7 in Weight:118lbs Medications: Abluterol,Alprazolam,Aspirin, Docusate,Robitussin, Hydrocortisone, Naproxen,Zofran Inj.,Oxycodone HCl, Pantoprazole, Sodium,Chloride Medical History: 51 y/o female. Hx of chest pain,COPD,smoking, family hx of heart disease. Target HR: 167 bpm Resting ECG: RSR Resting Heart Rate: 50 bpm Resting Blood Pressure: 142/80mmHg Submaximum (85%): 142 bpm PROCEDURE Pharmacologic stress testing was performed using 0.4mg per 5ml of regadenoson given intravenously over 7-10 seconds. Reversal agent aminophyline 100 mg, given intravenously for Other. POST EXERCISE Reason for Termination: Protocol completed Target HR: No Max HR: 53 bpm 68% of Maximum Predicted HR: 167 bpm Exercise duration: 00:31 min:sec, 0 Stage Exercise capacity: 1.0METs Max Blood Pressure: 142/80mmHg Blood Pressure response to exercise: normal resting BP - appropriate response Heart Rate response to exercise: appropriate Chest Pain: No, none Angina index: 0 Arrhythmia: No, none ST Change: No, none Deviation: 0 mm INTERPRETATION Stress EKG Conclusion: IV LEXISCAN NUCLEAR STRESS TEST NEGATIVE FOR CHEST PAIN AND NEGATIVE FOR ST-T CHANGES. NUCLEAR SCAN REPORT PENDING. Signed by Rupert Lamb Electronically Approved: 09/23/2016 13:56:10 EXAM: Myocardial Perfusion REST/STRESS Stress Test Type: Pharmacologic Imaging Protocol Rest Spect myocardial perfusion imaging was performed in supine position 65 minutes following the injection of 10.5 mCi of Tc-99 Myoview. At peak stress, the patient was injected intravenously with 30.9mCi of Tc-99 tetrofosmin after an infusion time of 0 minutes and 10 seconds. Gated Stress Spect was performed 60 minutes after intravenous Tc-99 Myoview injection. The images were gated to evaluate regional wall motion and calculate ventricular ejection fraction.Images were reconstructed using backfilter projection method in short horizontal and verticle long axis. Spect slices were generated. LV Perfusion The quality of the study is good. The left ventricle is normal in size. The right ventricle is unremarkable. The lung uptake is within normal limits. The distribution of tracer reveals normal uptake pattern throughout the LV myocardium on the stress study. The rest myocardial perfusion study shows no significant change. Wall Motion Wall motion study shows good contractility of the left ventricle. LVEF = 73%. Conclusion 1. Normal SPECT myocardial perfusion study. 2. Normal gated wall motion of the left ventricle.
== END 2016-09-23 19:17 | disposition home or self-care (01) ==
LOC: ED 10:56 → ERH 14:18 → 2RSO 16:30
PROVIDERS: ADMIT Internal Medicine; ATTEND Internal Medicine
DX: R07.89 Other chest pain (principal); F41.9 Anxiety disorder, unspecified; R42 Dizziness and giddiness; R55 Syncope and collapse; J44.1 Chronic obstructive pulmonary disease with (acute) exacerbation; N94.89 Other specified conditions associated with female genital organs and menstrual cycle; G89.29 Other chronic pain; I95.9 Hypotension, unspecified; F17.210 Nicotine dependence, cigarettes, uncomplicated; Z80.8 Family history of malignant neoplasm of other organs or systems; Z82.49 Family history of ischemic heart disease and other diseases of the circulatory system
CPT/HCPCS: 36415; 70450; 71010; 71275; 78452; 80053; 80061; 80320; 80324; 80345; 80346; 80349; 80353; 80358; 80361; 81001; 82550; 82803; 83615; 83735; 83880; 83992; 84100; 84145; 84436; 84443; 84480; 84484; 85025; 85610; 85651; 85730; 86140; 87040; 87086; 87804; 93005; 93017; 93306; 96360; 99284; A9502; G0378; J0280; J2785; J7040; Q9967

== ENCOUNTER 2016-09-26 14:29 | Observation (INO) | payer MEDICAID ==
[2016-09-26 14:32] VITALS: BMI 19.1
[2016-09-26 14:38] VITALS: RESP 16; TEMP 97.8
[2016-09-26] MEDS ORDERED: Sodium Chloride 0.9% 1,000 ML IV STA (15:17)
[2016-09-26] MEDS ORDERED: Morphine 4 mg/ml ISec IVP STA (15:28)
[2016-09-26] MEDS ORDERED: oxyCODONE 80 mg ER Tab (oxyCONTIN) PO STA (15:37)
[2016-09-26] MEDS ORDERED: Albuterol 0.083% Inhal Sol (2.5 mg/3 mL) UD IH STA (16:30)
--- NOTE | 2016-09-26 16:32 | ED PDOC ---
Arrival/HPI - General Chief Complaint: Back Pain Time Seen by Provider: 09/26/16 14:43 Historian: Patient - History of Present Illness Narrative History of Present Illness (Text): 09/26/16 16:30 51-year-old female presents today with back pain and upper abdominal pain that started yesterday. Patient states she was just recently hospitalized for chest pain. Patient states she has back pain along the entire back greatest on the right side. She denies urinary symptoms. No chest pain or shortness of breath. She denies blood in the stool. She denies constipation. Complaining of upper and lower pelvic pain. pt states she has hx of chronic lower abdominal pain. No fevers or chills. hx of smoking, just recently quit. Patient states she has not taken her oxycodone 80 mg since 2 AM and she is requesting a dose here. No other complaints. Past Medical History - Provider Review Nursing Documentation Reviewed: Yes - Travel History Have you recently traveled outside [place] w/in the past 3 mons?: No - Infectious Disease Hx of Infectious Diseases: None - Tetanus Immunization Tetanus Immunization: Unknown - Cardiac Hx Cardiac Disorders: No Other/Comment: Sepsis last admission about 3 weeks ago. - Pulmonary Hx Respiratory Disorders: Yes (SMOKES PPD QUIT) - Neurological Hx Neurological Disorder: No - HEENT Hx HEENT Disorder: Yes (eyeglasses) - Renal Hx Renal Disorder: No - Endocrine/Metabolic Hx Endocrine Disorders: No - Hematological/Oncological Hx Blood Disorders: No - Integumentary Hx Dermatological Disorder: Yes (TATTOOS) Other/Comment: multiple skin discolorations ble - Musculoskeletal/Rheumatological Hx Falls: No - Gastrointestinal Hx Gastrointestinal Disorders: Yes (CONSTIPATION) - Genitourinary/Gynecological Hx Genitourinary Disorders: Yes (OVARIAN CYSTECTOMY X 2.) - Psychiatric Hx Psychophysiologic Disorder: Yes Hx Anxiety: Yes Hx Depression: Yes Hx Substance Use: No - Surgical History Hx Appendectomy: (pt denies) Other/Comment: MYOMECTOMY, uterine fibroid sx,ovarian cystectomy x2, cyst removed from behind r knee, tubal ligation, d&c - Anesthesia Hx Anesthesia: Yes Hx Anesthesia Reactions: No Hx Malignant Hyperthermia: No - Suicidal Assessment Feels Threatened In Home Enviroment: No Family/Social History - Physician Review Nursing Documentation Reviewed: Yes Family/Social History: Unknown Family HX Smoking Status: Light Smoker < 10 Cigarettes Daily Hx Alcohol Use: Yes (alcohol x 5 yrs) Hx Substance Use: No Hx Substance Use Treatment: No Allergies/Home Meds Allergies/Adverse Reactions: Allergies hydroxyzine Allergy (Severe, Verified 08/26/16 23:14) FATIGUE hydroxyzine HCl [From Atarax] Allergy (Verified 08/26/16 23:14) FATIGUE Penicillins Allergy (Verified 08/26/16 23:14) RASH Home Medications: Home Meds Medication Instructions Recorded Confirmed Oxycodone HCl [Oxycontin] 80 mg PO BID 02/04/16 09/26/16 oxyCODONE [oxyCODONE Immediate 30 mg PO BID PRN 02/04/16 09/26/16 Release Tab] Alprazolam [Xanax] 2 mg PO BID PRN 08/26/16 09/26/16 Review of Systems - Review of Systems Constitutional: absent: Fatigue, Fevers Respiratory: absent: SOB, Cough Cardiovascular: absent: Chest Pain, Palpitations Gastrointestinal: Abdominal Pain. absent: Constipation, Diarrhea, Nausea, Vomiting Genitourinary Female: absent: Dysuria, Frequency Musculoskeletal: Back Pain. absent: Arthralgias, Neck Pain Skin: absent: Rash, Pruritis Neurological: absent: Headache, Dizziness Physical Exam Vital Signs Reviewed: Yes Vital Signs Temp Pulse Resp BP Pulse Ox 09/26/16 20:59 63 16 130/90 97 09/26/16 16:44 54 L 16 127/86 100 09/26/16 14:35 97.8 F 62 16 141/77 99 Temperature: Afebrile Blood Pressure: Normal Pulse: Regular Respiratory Rate: Normal Appearance: Positive for: Well-Appearing, Non-Toxic, Comfortable Pain Distress: None Mental Status: Positive for: Alert and Oriented X 3 - Systems Exam Head: Present: Atraumatic Neck: Present: Normal Range of Motion Respiratory/Chest: Present: Clear to Auscultation, Good Air Exchange. No: Respiratory Distress, Accessory Muscle Use Cardiovascular: Present: Regular Rate and Rhythm, Normal S1, S2. No: Murmurs Abdomen: Present: Tenderness (+ ruq tenderness), Normal Bowel Sounds, Guarding ( voluntary). No: Distention, Peritoneal Signs, McBurney's Point Tender Back: Present: Normal Inspection, Paraspinal Tenderness (+ bilateral paraspinal tenderness throughout entire back. NO CVA tenderness. ) Skin: Present: Warm, Dry, Normal Color. No: Rashes Psychiatric: Present: Alert Medical Decision Making ED Course and Treatment: 09/26/16 16:32 Patient is nontoxic well appearing with stable vital signs presenting with upper abdominal pain and chronic back pain. Old visits reviewed. Patient had a CAT scan of the abdomen and pelvis as well as a CAT scan of the chest within the past month. Patient requesting oxycodone 80 mg extended release. CBC wnl CMP wnl Amylase wnl Lipase wnl Urinalysis + blood, no leukocytes; no wbcs; no urinary symptoms; will d/c home to f/u. Ultrasound:FINDINGS: Liver: Liver measures 15 cm. There is a diffuse increase in hepatic parenchymal echogenicity, consistent with fatty infiltration. No intrahepatic bile duct dilation. Gallbladder: Gallbladder wall thickness is 1.5 mm. No gallstones. Common bile duct: Common bile duct 3 mm. No stones. No dilation. Pancreas: Unremarkable as visualized. Kidneys: Right kidney 9.4 cm, left kidney 10 cm. No stones. No hydronephrosis. Spleen: Spleen 8.5 cm. Aorta: Unremarkable as visualized. No aneurysm. Inferior vena cava: Unremarkable as visualized. IMPRESSION: Hepatic steatosis likely present, no gallstones or biliary obstruction. No acute findings otherwise noted. Patient reassessment: pt resting comfortably in er; no distress. stable vitals. denies pain after her oxycodone. pt requesting "breathing treatment" pt states she is due to take one. lungs clear, no wheezing, o2 saturation 97% on room air. Patient is very unhappy that I would not give her an additional oxycodone pill to go home with. I checked the [facility] aware website and found that the patient had a 30 day supply of both 80 mg of oxycodone extended release and 30 mg of oxycodone immediate release that was filled on 08/30/16. I've advised the patient that she should have additional medications available until the and she can take her medications at home. Discussed all results with patient in depth. advised f/u with pmd i have discussed pt results from her prior admission with her; i spoke with her about the PFO and the negative stress test; i have advised that she f/u with the doctors she was advised to f/u up with . Patient verbalizes understanding of discharge instructions and need for immediate followup. all aspects of this case were discussed the attending of record. Impression: Abdominal pain, chronic back pain TAKE YOUR PAIN MEDICATIONS PRESCRIBED BY YOUR DOCTOR FOLLOW UP WITH THE PRIMARY CARE PHYSICIAN WITHIN THE NEXT 2 DAYS FOLLOW UP WITH THE GI DOCTOR WITHIN THE NEXT 2 DAYS RETURN IF SYMPTOMS WORSEN,PERSIST OR IF NEW SYMPTOMS DEVELOP. - Medication Orders Current Medication Orders: Discontinued Medications Albuterol Sulfate (Albuterol 0.083% Inhal Mara (2.5 Mg/3 Ml) Ud) 2.5 mg IH STAT STA Stop: 09/26/16 16:31 Last Admin: 09/26/16 16:44 Dose: 2.5 MG Sodium Chloride (Sodium Chloride 0.9%) 1,000 mls @ 999 mls/hr IV .Q1H1M STA Stop: 09/26/16 16:17 Last Admin: 09/26/16 16:25 Dose: 999 MLS/HR eMAR Start Stop Document 09/26/16 16:25 HI (Rec: 09/26/16 16:25 [id number]) Intravenous Solution Start Date 09/26/16 Start Time 16:25 Oxycodone HCl (Oxycontin Extended Release Tab) 80 mg PO STAT STA Stop: 09/26/16 15:38 Last Admin: 09/26/16 16:04 Dose: 80 MG ED OBSERVATION Discharge: Yes Date of observation admission: 09/26/16 Time of observation admission: 15:20 - Observation admission statement Patient is being placed in observation because:: abdominal pain, back pain - Goals of Observation Goals of observation are:: improvement in symptoms - Progress Note Progress Note: 09/26/16 17:20 pt non toxic well appearing; vitals stable 09/26/16 19:30 pt without pain; waiting for urine result. pt took urine cup to bathroom and urinated without urinating into the cup. 09/26/16 20:40 UA; + blood, no leukocytes; pt without urinary symptoms; will d/c home. pt non toxic well appearing; no distress. Disposition/Present on Arrival - Present on Arrival Any Indicators Present on Arrival: No History of DVT/PE: No History of Uncontrolled Diabetes: No Urinary Catheter: No History of Decub. Ulcer: No History Surgical Site Infection Following: None - Disposition Have Diagnosis and Disposition been Completed?: Yes Diagnosis: Chronic back pain, Abdominal pain Disposition: HOME/ ROUTINE Disposition Time: 20:46 Patient Plan: Discharge Condition: GOOD
[2016-09-26 16:34] LABS: ADD MANUAL DIFF? NO
[2016-09-26 16:36] LABS: BASO # 0.04 K/mm3 (0.0-2.0); BASO % 0.7 % (0.0-3.0); EOS # 0.1 (0.0-0.7); EOS % 1.6 % (1.5-5.0); GRAN % 70.4 % (50.0-68.0); HEMATOCRIT 39.7 % (36.0-48.0); LYMPH # 1.4 (1.2-3.4); LYMPH % 22.5 % (22.0-35.0); MEAN CELL VOLUME 91.9 fL (80.0-105.0); MEAN CORPUSCULAR HEMOGLOBIN 31.3 pg (25.0-35.0); MEAN PLATELET VOLUME 12.4 fl (7.0-11.0); MONO # 0.3 (0.1-0.6); MONO % 4.8 % (1.0-6.0); PLATELET COUNT 180 10^3/uL (120.0-450.0); RED CELL DISTRIBUTION WIDTH 13.1 % (11.5-14.5); WHITE BLOOD COUNT 6.1 10^3/ul (4.5-11.0)
--- NOTE | 2016-09-26 16:37 | RAD ---
HISTORY: abd pain COMPARISON: 09/21/2016 FINDINGS: LUNGS: No active pulmonary disease. PLEURA: No significant pleural effusion identified, no pneumothorax apparent. CARDIOVASCULAR: Normal. OSSEOUS STRUCTURES: No significant abnormalities. VISUALIZED UPPER ABDOMEN: Normal. OTHER FINDINGS: None. IMPRESSION: No active disease.
[2016-09-26 16:46] LABS: ALB/GLOB RATIO 1.2 (1.1-1.8); ALKALINE PHOSPHATASE 105 U/L (38-133); ALT/SGPT 33 U/L (7-56); AMYLASE 82 U/L (35-125); AST/SGOT 26 U/L (15-39); BILIRUBIN,TOTAL 0.6 mg/dL (0.2-1.3); BLOOD UREA NITROGEN 10 mg/dL (7-21); CALCIUM 9.4 mg/dL (8.4-10.5); CARBON DIOXIDE 27 mmol/L (21-33); CHLORIDE 104 mmol/L (98-107); GFR AFRICAN-AMERICAN > 60; GLUCOSE,RANDOM 98 mg/dL (70-110); LIPASE 49 U/L (23-300); SODIUM 140 mmol/L (132-148); TOTAL PROTEIN 7.4 g/dL (5.8-8.3)
[2016-09-26 17:37] LABS: INR 1.14 (0.93-1.08)
[2016-09-26 19:56] LABS: URINE BILIRUBIN NEGATIVE (NEGATIVE); URINE BLOOD TRACE-INTACT (NEGATIVE); URINE GLUCOSE (UA) NEGATIVE (NEGATIVE); URINE KETONE NEGATIVE (NEGATIVE); URINE LEUKOCYTE ESTERASE NEGATIVE Leu/uL (NEGATIVE); URINE PROTEIN TRACE mg/dL (<30 mg/dL); URINE UROBILINOGEN 0.2 E.U./dL (<1 E.U./dL)
[2016-09-26 20:08] LABS: URINE APPEARANCE CLEAR (CLEAR); URINE COLOR YELLOW (YELLOW)
[2016-09-26 20:42] LABS: URINE BACTERIA MOD (NEG); URINE WBC 0 - 2 /hpf (0-6)
[2016-09-26 21:01] VITALS: BP 130/90; PULSE 63; O2SAT 97
--- NOTE | 2016-09-27 08:50 | US ---
HISTORY: Right upper quadrant pain COMPARISON: None. TECHNIQUE: Grayscale imaging was performed. FINDINGS: LIVER: Measures 12.1 cm. Normal echogenicity of the liver parenchyma. No mass. No intrahepatic bile duct dilatation. GALLBLADDER: No cholelithiasis, wall thickening or pericholecystic fluid. The sonographic Gomez's sign is negative. COMMON BILE DUCT: Measures 3.0 mm. No stones. No dilatation. PANCREAS: Normal in size. No mass. No ductal dilatation. RIGHT KIDNEY: Measures 9.3cm. Normal echogenicity. No calculus, mass, or hydronephrosis. LEFT KIDNEY: Measures 9.98cm. Normal echogenicity. No calculus, mass, or hydronephrosis. SPLEEN: Normal in size and contour. No mass. AORTA: No aneurysmal dilatation. IVC: Unremarkable. OTHER FINDINGS: None. IMPRESSION: Normal examination.
== END 2016-09-26 20:46 | disposition home or self-care (01) ==
LOC: ED 14:29 → EROBSV 15:17
PROVIDERS: ADMIT Emergency Medicine; ATTEND Emergency Medicine
DX: M54.9 Dorsalgia, unspecified (principal); R10.9 Unspecified abdominal pain
CPT/HCPCS: 71010; 76700; 80053; 81001; 82150; 83690; 85025; 85610; 85730; 99284; G0378; J7040

== ENCOUNTER 2016-10-16 15:02 | Observation (INO) | payer MEDICAID ==
[2016-10-16 15:14] VITALS: BMI 18.8
[2016-10-16] MEDS ORDERED: oxyCODONE 80 mg ER Tab (oxyCONTIN) PO STA (15:58)
[2016-10-16] MEDS ORDERED: Sodium Chloride 0.9% 1,000 ML IV STA (15:59)
--- NOTE | 2016-10-16 16:13 | ED PDOC ---
"Arrival/HPI - General Chief Complaint: Abdominal Pain Time Seen by Provider: 10/16/16 15:46 Historian: Patient - History of Present Illness Narrative History of Present Illness (Text): 10/16/16 19:24 51 y.o. female whose PMHx includes COPD, herniated disc, pelvic congestion syndrome, and opioid dependence, who comes to the ED because she says she started taking miralax and a stool softener for constipation about 10 days ago. She eventually moved her bowels but developed abd pain and n/v 3 days ago and since then has been having persistent abd pain with n/v and feels like she needs to have a BM but cannot. No urinary symptoms. She had a subjective fever yesterday. She also says she has been using her nebulizer Q4H since yesterday and feels sob due to her copd. Past Medical History - Provider Review Nursing Documentation Reviewed: Yes - Infectious Disease Hx of Infectious Diseases: None - Tetanus Immunization Tetanus Immunization: Unknown - Reproductive Menopause: Yes - Cardiac Hx Cardiac Disorders: No Other/Comment: Sepsis last admission about 3 weeks ago. - Pulmonary Hx Respiratory Disorders: Yes (SMOKES PPD QUIT) - Neurological Hx Neurological Disorder: No - HEENT Hx HEENT Disorder: Yes (eyeglasses) - Renal Hx Renal Disorder: No - Endocrine/Metabolic Hx Endocrine Disorders: No - Hematological/Oncological Hx Blood Disorders: No - Integumentary Hx Dermatological Disorder: Yes (TATTOOS) Other/Comment: multiple skin discolorations ble - Musculoskeletal/Rheumatological Hx Falls: No - Gastrointestinal Hx Gastrointestinal Disorders: Yes (CONSTIPATION) - Genitourinary/Gynecological Hx Genitourinary Disorders: Yes (OVARIAN CYSTECTOMY X 2.) - Psychiatric Hx Psychophysiologic Disorder: Yes Hx Anxiety: Yes Hx Depression: Yes Hx Substance Use: No - Surgical History Hx Appendectomy: (pt denies) Other/Comment: MYOMECTOMY, uterine fibroid sx,ovarian cystectomy x2, cyst removed from behind r knee, tubal ligation, d&c - Anesthesia Hx Anesthesia: Yes Hx Anesthesia Reactions: No Hx Malignant Hyperthermia: No - Suicidal Assessment Feels Threatened In Home Enviroment: No Family/Social History - Physician Review Nursing Documentation Reviewed: Yes Family/Social History: No Known Family HX Smoking Status: Light Smoker < 10 Cigarettes Daily Hx Alcohol Use: Yes (alcohol x 5 yrs) Hx Substance Use: No Hx Substance Use Treatment: No Allergies/Home Meds Allergies/Adverse Reactions: Allergies hydroxyzine Allergy (Severe, Verified 10/16/16 15:28) FATIGUE hydroxyzine HCl [From Atarax] Allergy (Verified 10/16/16 15:28) FATIGUE Penicillins Allergy (Verified 10/16/16 15:28) RASH Home Medications: Home Meds Medication Instructions Recorded Confirmed Oxycodone HCl [Oxycontin] 80 mg PO BID 02/04/16 10/16/16 oxyCODONE [oxyCODONE Immediate 30 mg PO BID PRN 02/04/16 10/16/16 Release Tab] Alprazolam [Xanax] 2 mg PO BID PRN 08/26/16 10/16/16 Review of Systems - Physician Review All systems were reviewed & negative as marked: Yes - Review of Systems Constitutional: Fevers (subjective). absent: Fatigue Eyes: Normal ENT: Normal Respiratory: SOB, Cough Cardiovascular: absent: Chest Pain Gastrointestinal: Abdominal Pain, Constipation, Nausea, Vomiting Genitourinary Female: absent: Dysuria Musculoskeletal: Back Pain Neurological: Headache. absent: Dizziness Physical Exam Vital Signs Reviewed: Yes Vital Signs Temp Pulse Resp BP Pulse Ox 10/16/16 19:06 81 16 106/76 98 10/16/16 17:06 68 17 129/79 99 10/16/16 15:13 98.4 F 78 20 131/81 97 Temperature: Afebrile Blood Pressure: Normal Pulse: Regular Respiratory Rate: Normal Appearance: Positive for: Well-Appearing, Non-Toxic, Comfortable Pain Distress: None Mental Status: Positive for: Alert and Oriented X 3 - Systems Exam Head: Present: Atraumatic, Normocephalic Pupils: Present: PERRL Conjunctiva: Present: Normal Mouth: Present: Moist Mucous Membranes Pharnyx: Present: Normal. No: ERYTHEMA, EXUDATE Neck: Present: Normal Range of Motion Respiratory/Chest: Present: Decreased Breath Sounds. No: Respiratory Distress, Accessory Muscle Use Cardiovascular: Present: Regular Rate and Rhythm, Normal S1, S2. No: Murmurs Abdomen: Present: Tenderness (periumbilical), Distention (mild), Normal Bowel Sounds. No: Peritoneal Signs Back: Present: Normal Inspection Upper Extremity: Present: Normal Inspection. No: Cyanosis, Edema Lower Extremity: Present: Normal Inspection. No: Edema Neurological: Present: GCS=15, CN II-XII Intact, Speech Normal Skin: Present: Warm, Dry, Normal Color. No: Rashes Psychiatric: Present: Alert, Oriented x 3, Normal Insight, Normal Concentration Medical Decision Making ED Course and Treatment: 10/16/16 16:11 Impression: 51 y.o. female with abd pain and n/v. Differential Diagnosis included but are not limited to: Constipation vs SBO vs colitis Plan: -- EKG -- CT abd/pelvis -- Ches xray -- Urinalysis -- Labs -- Reassess and disposition Prior Visits: Notes and results from previous visits were reviewed. Patient was last reported to the emergency department on 09/26/16 for back pain and upper abdominal pain. Patient was discharged and advised to follow up with PMD. Progress Notes: EKG: Ordered, reviewed, and independently interpreted the EKG. Rate : 68 BPM Rhythm : NSR Interpretation : Normal intervals, normal axis, No ST/T changes Comparison : No previous EKG for comparison. 10/16/16 18:31 CT results: FINDINGS: Lower thorax: Small subpleural nodule of the left lateral base measuring approximately 4 mm. dependent atelectasis at the bases. Scarring of the lingula and right middle lobe. Lung bases otherwise unremarkable. ABDOMEN: Liver: There is mild periportal edema. There are no focal liver lesions present. Hepatic and portal veins appear patent. Gallbladder and bile ducts: The gallbladder is contracted but otherwise normal. Pancreas: Unremarkable. No mass. No ductal dilation. Spleen: Unremarkable. No splenomegaly. Adrenals: Unremarkable. No mass. Kidneys and ureters: Symmetric renal enhancement is present. No suspicious renal mass, perinephric collection, or hydronephrosis. The ureters are normal. EHSAN HARRISON | Preliminary Radiology Report OPTICAL LABORATORY MANAGER (QA) DISCREPANCY? If there is a discrepancy between the preliminary and final interpretation, please notify [facility] via [email or web address] If you do not have access to our QA portal, call our QA team at [phone] CONFIDENTIALITY STATEMENT This report is intended only for the use of the referring physician, and only in accordance with law, If you received this in error, call [phone] Page 2 of 2 Stomach and bowel: Large bowel loops appear within normal limits, no signs of wall thickening, mucosal edema, or bowel distention. There is prominent jejunal loops proximally measuring up to 2.8 cm. Some collapsed loops are seen in proximity. The partial obstruction or closed loop obstruction cannot be excluded please correlate clinically. Appendix: The appendix is normal. PELVIS: Bladder: Unremarkable. No mass. Reproductive: Unremarkable as visualized. ABDOMEN and PELVIS: Intraperitoneal space: Unremarkable. No free air. No significant fluid collection. Bones/joints: No acute fracture. No dislocation. Soft tissues: Unremarkable. Vasculature: The aorta demonstrates moderate atherosclerotic calcification. Normal IVC is seen. Multiple dilated venous structures are present within the patient's pelvis bilaterally left more than right. Left ovarian vein appears prominent without thrombosis. Lymph nodes: Unremarkable. No enlarged lymph nodes. IMPRESSION: Possible partial obstruction versus closed-loop obstruction of the proximal jejunum given dilated loops adjacent to collapsed small bowel loops up to 2.7 cm. However, findings are subtle, and the differential diagnosis also includes physiologic fluid within the proximal small bowel. No evidence for bowel herniation, colitis, appendicitis or diverticulitis. No gross ureteral stone or obstructive uropathy is visualized. Multiple slightly dilated venous structures in the pelvis which could be associated with congestive venous syndrome. Impression. Small nodule left base 4 mm. this has been stable since April 2016. 10/16/16 19:28 Patient with noted history; vitals are unremarkable; labs are nondiagnostic. Patient given her oxycodone and CT a/p obtained showing possible partial SBO. Will need surgical consult and placement on observation for further eval and treatment. Case discussed with surgical instrument technician and chief medical technologist. 10/16/16 20:00 Case was discussed with Dr. Smith for placement on the hospitalist service. - Lab Interpretations Lab Results: 10/16/16 16:35 10/16/16 16:35 Lab Results 10/16/16 16:35: Sodium 140, Potassium 3.7, Chloride 102, Carbon Dioxide 29, Anion Gap 13, BUN 10, Creatinine 0.9, Est GFR ( Amer) > 60, Est GFR (Non- Af Amer) > 60, Random Glucose 97, Calcium 9.2, Total Bilirubin 0.5, AST 23, ALT 29, Alkaline Phosphatase 98, Lactate Dehydrogenase 299 L, Total Creatine Kinase 51, Troponin I < 0.01, Total Protein 7.1, Albumin 3.7, Globulin 3.4, Albumin/ Globulin Ratio 1.1, Amylase 90, Lipase 61 10/16/16 16:35: Urine Color Yellow, Urine Appearance Clear, Urine pH 7.0, Ur Specific [place] 1.010, Urine Protein Negative, Urine Glucose (UA) Negative, Urine Ketones Negative, Urine Blood Negative, Urine Nitrate Negative, Urine Bilirubin Negative, Urine Urobilinogen 0.2, Ur Leukocyte Esterase Negative 10/16/16 16:35: PT 12.7 H, INR 1.18 H, APTT 26.1 10/16/16 16:35: WBC 5.3, RBC 4.36, Hgb 13.6, Hct 40.2, MCV 92.2, MCH 31.2, MCHC 33.8, RDW 13.1, Plt Count 134, MPV 12.5 H, Gran % 56.7, Lymph % (Auto) 30.8, [place] % (Auto) 8.1 H, Eos % (Auto) 3.6, Baso % (Auto) 0.8, Gran # 3.00, Lymph # 1.6, [place] # 0.4, Eos # 0.2, Baso # 0.04 10/16/16 16:00: Lactic Acid 0.9 I have reviewed the lab results: Yes - RAD Interpretation Radiology Orders: 10/16/16 15:59 ABD & PELVIS IV CONTRAST ONLY [CT] Stat CHEST PORTABLE [RAD] Stat - EKG Interpretation Interpreted by ED Physician: Yes Type: 12 lead EKG - Medication Orders Current Medication Orders: Acetaminophen (Tylenol 325mg Tab) 650 mg PO Q6 PRN PRN Reason: Pain, moderate (4-7) Docusate Sodium (Colace) 100 mg PO BID GABY Enoxaparin Sodium (Lovenox) 40 mg SC DAILY GABY PRN Reason: Protocol Famotidine (Pepcid) 20 mg PO BID GABY Sodium Chloride (Sodium Chloride 0.9%) 1,000 mls @ 100 mls/hr IV .Q10H GABY Methylnaltrexone Coward (Relistor) 12 mg SC DAILY GABY Ondansetron HCl (Zofran Inj) 4 mg IVP Q6 PRN PRN Reason: Nausea/Vomiting Discontinued Medications Famotidine (Pepcid) 20 mg IVP STAT STA Stop: 10/16/16 15:59 Last Admin: 10/16/16 16:18 Dose: 20 mg Sodium Chloride (Sodium Chloride 0.9%) 1,000 mls @ 999 mls/hr IV .Q1H1M STA Stop: 10/16/16 16:59 Last Admin: 10/16/16 16:19 Dose: 999 mls/hr Iohexol (Omnipaque 350 100 Ml) Confirm Administered Dose 350 mg .ROUTE .STK-MED ONE Stop: 10/16/16 17:09 Ipratropium Coward (Atrovent) 0.5 mg IH STAT STA Stop: 10/16/16 17:21 Last Admin: 10/16/16 18:09 Dose: 0.5 mg Levalbuterol HCl (Xopenex) 1.25 mg IH STAT STA Stop: 10/16/16 17:21 Last Admin: 10/16/16 18:05 Dose: 1.25 mg Methylnaltrexone Coward (Relistor) 8 mg SC ONCE ONE Stop: 10/16/16 19:54 Methylprednisolone (Solu-Medrol) 125 mg IVP STAT STA Stop: 10/16/16 17:21 Last Admin: 10/16/16 18:04 Dose: 125 mg Ondansetron HCl (Zofran Inj) 4 mg IVP STAT STA Stop: 10/16/16 15:59 Last Admin: 10/16/16 16:19 Dose: 4 mg Oxycodone HCl (Oxycontin Extended Release Tab) 80 mg PO STAT STA Stop: 10/16/16 15:59 Last Admin: 10/16/16 16:19 Dose: 80 mg - Kobyibkellen Statement The provider has reviewed the documentation as recorded by the Jeronimo Andrews All medical record entries made by the Jeronimo were at my direction and personally dictated by me. I have reviewed the chart and agree that the record accurately reflects my personal performance of the history, physical exam, medical decision making, and the department course for this patient. I have also personally directed, reviewed, and agree with the discharge instructions and disposition. Disposition/Present on Arrival - Present on Arrival Any Indicators Present on Arrival: No History of DVT/PE: No History of Uncontrolled Diabetes: No Urinary Catheter: No History of Decub. Ulcer: No History Surgical Site Infection Following: None - Disposition Have Diagnosis and Disposition been Completed?: Yes Diagnosis: Partial small bowel obstruction Disposition: HOSPITALIZED Disposition Time: 18:30 Patient Plan: Observation Patient Problems: Current Active Problems Problem Status Onset Partial small bowel obstruction Acute Condition: FAIR"
[2016-10-16 16:44] LABS: ADD MANUAL DIFF? NO
[2016-10-16 16:48] LABS: BASO # 0.04 K/mm3 (0.0-2.0); BASO % 0.8 % (0.0-3.0); EOS # 0.2 (0.0-0.7); EOS % 3.6 % (1.5-5.0); GRAN % 56.7 % (50.0-68.0); HEMATOCRIT 40.2 % (36.0-48.0); LYMPH # 1.6 (1.2-3.4); LYMPH % 30.8 % (22.0-35.0); MEAN CELL VOLUME 92.2 fL (80.0-105.0); MEAN CORPUSCULAR HEMOGLOBIN 31.2 pg (25.0-35.0); MEAN CORPUSCULAR HGB CONC 33.8 g/dl (31.0-37.0); MEAN PLATELET VOLUME 12.5 fl (7.0-11.0); MONO # 0.4 (0.1-0.6); MONO % 8.1 % (1.0-6.0); PLATELET COUNT 134 10^3/uL (120.0-450.0); RED CELL DISTRIBUTION WIDTH 13.1 % (11.5-14.5); URINE BILIRUBIN NEGATIVE (NEGATIVE); URINE BLOOD NEGATIVE (NEGATIVE); URINE GLUCOSE (UA) NEGATIVE (NEGATIVE); URINE KETONE NEGATIVE (NEGATIVE); URINE LEUKOCYTE ESTERASE NEGATIVE Leu/uL (NEGATIVE); URINE PROTEIN NEGATIVE mg/dL (<30 mg/dL); URINE UROBILINOGEN 0.2 E.U./dL (<1 E.U./dL); WHITE BLOOD COUNT 5.3 10^3/ul (4.5-11.0)
[2016-10-16 16:50] LABS: URINE APPEARANCE CLEAR (CLEAR); URINE COLOR YELLOW (YELLOW)
[2016-10-16 16:56] LABS: INR 1.18 (0.93-1.08); PARTIAL THROMBOPLASTIN TIME 26.1 Seconds (23.7-30.8)
[2016-10-16 16:57] LABS: ALB/GLOB RATIO 1.1 (1.1-1.8); ALKALINE PHOSPHATASE 98 U/L (38-133); ALT/SGPT 29 U/L (7-56); AMYLASE 90 U/L (35-125); AST/SGOT 23 U/L (15-39); BILIRUBIN,TOTAL 0.5 mg/dL (0.2-1.3); BLOOD UREA NITROGEN 10 mg/dL (7-21); CALCIUM 9.2 mg/dL (8.4-10.5); CARBON DIOXIDE 29 mmol/L (21-33); CHLORIDE 102 mmol/L (98-107); GFR AFRICAN-AMERICAN > 60; GLUCOSE,RANDOM 97 mg/dL (70-110); LIPASE 61 U/L (23-300); POTASSIUM 3.7 mmol/L (3.6-5.0); SODIUM 140 mmol/L (132-148); TOTAL PROTEIN 7.1 g/dL (5.8-8.3)
[2016-10-16 17:08] LABS: TROPONIN I < 0.01 ng/mL
[2016-10-16] MEDS ORDERED: Iohexol 350 MG/100 ML VIAL ONE (17:08)
[2016-10-16] MEDS ORDERED: Levalbuterol 1.25 MG/3 ML Inhal Soln UD IH STA (17:20)
[2016-10-16] MEDS ORDERED: Ipratropium 0.02% Inhal Soln (0.5 mg/2.5 ml) UD IH STA (17:20)
[2016-10-16] MEDS ORDERED: Sodium Chloride 0.9% 1,000 ML IV SCH (19:45)
--- NOTE | 2016-10-16 19:51 | CP.PCM.HP ---
<Kenyetta Meneses - Last Filed: 10/16/16 21:51> History of Present Illness - History of Present Illness History of Present Illness: Internal medicine H & P for Hospitalist team- Kenyetta Meneses, PGY-1 Pt S & E at bedside. 51F w/PMH sig for COPD, anxiety, chronic constipation, opiate abuse/dependence, neuropathy, herniated disc admitted for abdominal pain x 4 days. Pain is periumbilical, "cramping, like constant labor pains", radiates diffusely, severe , no inciting factors identified. Aggravated by pizza. Alleviated by pain meds. 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 Admits to lightheadedness, fever ( Tmax at home 101F), headache, B/L groin/inner thigh pain, right knee pain, cough , HERNANDES, decreased appetite, decreased urination, drinks a lot of Pepsi and tea. Denies chills, SOB, CP, hematochezia, hematuria, hematemesis, changes in vision , recent URI symptoms, CP, palpitations. 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 chronic constipation since 2015, opiate abuse/dependence, neuropathy, herniated disc, sciatica, scoliosis PSH: Fibroid removal and ovarian cystectomy x 2, tubal ligation All: PCN, hydroxyzine (rash) SH: Admits to tobacco use: 1ppd x 20 yrs; recently cut down to 1/2ppd x 4 mos, denies ETOH or illicit drug use PMD: [facility] Home meds: Oxycodone 80mg Q12H, Oxycodone 30mg Q12H, Protonix, stool softener, Miralax - pt stopped stool softener and Miralax on Tuesday Pharm[facility]: [facility] Present on Admission - Present on Admission Any Indicators Present on Admission: No History of DVT/PE: No History of Uncontrolled Diabetes: No Urinary Catheter: No Decubitus Ulcer Present: No Review of Systems - Review of Systems All systems: reviewed and no additional remarkable complaints except - Constitutional Constitutional: Fever, Headache - EENT Eyes: absent: Blurred Vision, Change in Vision, Spots in Vision Ears: absent: Decreased Hearing, Tinnitus Nose/Mouth/Throat: absent: Nasal Congestion, Sore Throat - Cardiovascular Cardiovascular: absent: Chest Pain, Edema, Palpitations - Respiratory Respiratory: Cough, Dyspnea on Exertion. absent: Wheezing - Gastrointestinal Gastrointestinal: Abdominal Pain, Constipation, Diarrhea, Nausea, Vomiting. absent: Hematemesis, Hematochezia, Melena - Genitourinary Genitourinary: Voiding Freq/Small Amts. absent: Dysuria - Musculoskeletal Musculoskeletal: Back Pain (low, chronic). absent: Neck Pain, Numbness, Tingling - Integumentary Integumentary: absent: Rash - Neurological Neurological: absent: Numbness, Tingling - Psychiatric Psychiatric: Anxiety, Change in Appetite Past Patient History - Infectious Disease Hx of Infectious Diseases: None - Tetanus Immunizations Tetanus Immunization: Unknown - Past Medical History & Family History Past Medical History?: Yes - Past Social History Smoking Status: Light Smoker < 10 Cigarettes Daily - CARDIAC Hx Cardiac Disorders: No Other/Comment: Sepsis last admission about 3 weeks ago. - PULMONARY Hx Respiratory Disorders: Yes (SMOKES PPD QUIT) - NEUROLOGICAL Hx Neurological Disorder: No - HEENT Hx HEENT Problems: Yes (eyeglasses) - RENAL Hx Chronic Kidney Disease: No - ENDOCRINE/METABOLIC Hx Endocrine Disorders: No - HEMATOLOGICAL/ONCOLOGICAL Hx Blood Disorders: No - INTEGUMENTARY Hx Dermatological Problems: Yes (TATTOOS) Other/Comment: multiple skin discolorations ble - MUSCULOSKELETAL/RHEUMATOLOGICAL Hx Falls: No - GASTROINTESTINAL Hx Gastrointestinal Disorders: Yes (CONSTIPATION) - GENITOURINARY/GYNECOLOGICAL Hx Genitourinary Disorders: Yes (OVARIAN CYSTECTOMY X 2.) - PSYCHIATRIC Hx Psychophysiologic Disorder: Yes Hx Anxiety: Yes Hx Depression: Yes Hx Substance Use: No - SURGICAL HISTORY Hx Appendectomy: (pt denies) Other/Comment: MYOMECTOMY, uterine fibroid sx,ovarian cystectomy x2, cyst removed from behind r knee, tubal ligation, d&c - ANESTHESIA Hx Anesthesia: Yes Hx Anesthesia Reactions: No Hx Malignant Hyperthermia: No Meds Allergies/Adverse Reactions: Allergies Allergy/AdvReac Type Severity Reaction Status Date / Time hydroxyzine Allergy Severe FATIGUE Verified 10/16/16 15:28 hydroxyzine HCl [From Atarax] Allergy FATIGUE Verified 10/16/16 15:28 Penicillins Allergy RASH Verified 10/16/16 15:28 Physical Exam - Constitutional Appears: Non-toxic, No Acute Distress - Head Exam Head Exam: ATRAUMATIC, NORMAL INSPECTION, NORMOCEPHALIC - Eye Exam Eye Exam: EOMI, Normal appearance, PERRL Pupil Exam: NORMAL ACCOMODATION, PERRL - ENT Exam ENT Exam: Mucous Membranes Dry, Normal Exam - Neck Exam Neck exam: Positive for: Full Rom, Normal Inspection. Negative for: Tenderness - Respiratory Exam Respiratory Exam: Wheezes (mild B/L), NORMAL BREATHING PATTERN. absent: Accessory Muscle Use, Rales, Rhonchi, Respiratory Distress, Stridor - Cardiovascular Exam Cardiovascular Exam: REGULAR RHYTHM, +S1, +S2 - GI/Abdominal Exam GI & Abdominal Exam: Diminished Bowel Sounds, Hypoactive Bowel Sounds, Soft. absent: Distended, Firm, Guarding, Mass, Rebound, Rigid, Tenderness - Extremities Exam Extremities exam: Positive for: full ROM, normal inspection. Negative for: pedal edema, tenderness - Back Exam Back exam: NORMAL INSPECTION, tenderness (over left lower back/gluteal area). absent: FULL ROM, rash noted - Neurological Exam Neurological exam: Alert, CN II-XII Intact, Normal Gait, Oriented x3 - Psychiatric Exam Psychiatric exam: Normal Affect, Normal Mood - Skin Skin Exam: Dry, Intact, Normal Color, Warm Results - Vital Signs Recent Vital Signs: Last Vital Signs Temp 98.4 F 10/16/16 15:13 Pulse 81 10/16/16 19:06 Resp 16 10/16/16 19:06 BP 106/76 10/16/16 19:06 Pulse Ox 98 10/16/16 19:06 - Labs Result Diagrams: 10/16/16 16:35 10/16/16 16:35 Labs: Laboratory Results - last 24 hr 10/16/16 10/16/16 10/16/16 16:00 16:35 16:35 WBC 5.3 RBC 4.36 Hgb 13.6 Hct 40.2 MCV 92.2 MCH 31.2 MCHC 33.8 RDW 13.1 Plt Count 134 MPV 12.5 H Gran % 56.7 Lymph % (Auto) 30.8 [place] % (Auto) 8.1 H Eos % (Auto) 3.6 Baso % (Auto) 0.8 Gran # 3.00 Lymph # 1.6 [place] # 0.4 Eos # 0.2 Baso # 0.04 PT 12.7 H INR 1.18 H APTT 26.1 Sodium Potassium Chloride Carbon Dioxide Anion Gap BUN Creatinine Est GFR ( Amer) Est GFR (Non-Af Amer) Random Glucose Lactic Acid 0.9 Calcium Total Bilirubin AST ALT Alkaline Phosphatase Lactate Dehydrogenase Total Creatine Kinase Troponin I Total Protein Albumin Globulin Albumin/Globulin Ratio Amylase Lipase Urine Color Urine Appearance Urine pH Ur Specific [place] Urine Protein Urine Glucose (UA) Urine Ketones Urine Blood Urine Nitrate Urine Bilirubin Urine Urobilinogen Ur Leukocyte Esterase 10/16/16 10/16/16 16:35 16:35 WBC RBC Hgb Hct MCV MCH MCHC RDW Plt Count MPV Gran % Lymph % (Auto) [place] % (Auto) Eos % (Auto) Baso % (Auto) Gran # Lymph # [place] # Eos # Baso # PT INR APTT Sodium 140 Potassium 3.7 Chloride 102 Carbon Dioxide 29 Anion Gap 13 BUN 10 Creatinine 0.9 Est GFR ( Amer) > 60 Est GFR (Non-Af Amer) > 60 Random Glucose 97 Lactic Acid Calcium 9.2 Total Bilirubin 0.5 AST 23 ALT 29 Alkaline Phosphatase 98 Lactate Dehydrogenase 299 L Total Creatine Kinase 51 Troponin I < 0.01 Total Protein 7.1 Albumin 3.7 Globulin 3.4 Albumin/Globulin Ratio 1.1 Amylase 90 Lipase 61 Urine Color Yellow Urine Appearance Clear Urine pH 7.0 Ur Specific [place] 1.010 Urine Protein Negative Urine Glucose (UA) Negative Urine Ketones Negative Urine Blood Negative Urine Nitrate Negative Urine Bilirubin Negative Urine Urobilinogen 0.2 Ur Leukocyte Esterase Negative Assessment & Plan - Assessment and Plan (Free Text) Assessment: 51F w/PMH sig for COPD, herniated discs, anxiety, pelvic congestion syndrome, and opiate abuse/dependence admitted for abdominal pain, possible partial SBO vs enteritis. Pt stable. Plan: Abdominal pain likely 2/2 pSBO vs enteritis Given Pepcid, Xopenex, Solu-medrol, Zofran, Oxycodone 80mg x 1, and Ipratropium in ED NPO with ice chips Tylenol PRN Fever Zofran PRN Nausea D5 1/2NS@125 No colace at this time No Methylnaltrexone at this time CT abdomen/pelvis w/dilated small bowel loops, awaiting official read Surgery consulted- [place]- recs for methylnaltrexone, NPO w/ice chips, Colace Hx COPD Duonebs Q6H PRN Pulmicort Q12H GABY Monitor Hx Anxiety Cont home med: Xanax 2mg PO BID Hx herniated disc Cont home meds: Oxycodone 80mg and 30mg BID GI/DVT ppx Lovenox SCDs Pepcid Dispo Admit to med-Surg VS Q6H Activity as aaron MAJOR attending - Date & Time Date: 10/16/16 Time: 20:39 Decision To Admit - Pt Status Changed To: Hospital Disposition Of: Observation - . Bed Request Type: Med/Surg Admitting Physician: Carlos Smith <Carlos Smith - Last Filed: 10/25/16 19:39> Results - Vital Signs Recent Vital Signs: Last Vital Signs Temp 98.4 F 10/18/16 07:30 Pulse 60 10/18/16 07:30 Resp 20 10/18/16 07:30 BP 100/60 10/18/16 07:30 Pulse Ox 97 10/18/16 07:30 - Labs Result Diagrams: 10/18/16 06:30 10/18/16 06:30 Attending/Attestation - Attestation I have personally seen and examined this patient.: Yes I have fully participated in the care of the patient.: Yes I have reviewed all pertinent clinical information: Yes
[2016-10-16] MEDS ORDERED: Albuterol-Ipratrop 3 mg / 0.5 (3 ml) UD IH PRN (21:14)
--- NOTE | 2016-10-16 21:26 | CP.PCM.CON ---
<Rl Naik - Last Filed: 10/16/16 21:49> History of Present Illness - History of Present Illness History of Present Illness: Surgery: Dr. Quintanilla CC: Abd Pain HPI: 51F w. pmh of COPD, anxiety, depression, constipation, chronic back pain 2/ 2 herniated disc requiring high dose of daily narcotics presents to ED with abd pain. Pt states that she has been having daily abd pain since April. She has been seen for this pain in the past, and the pain has been attributed to opioid induced constipation. She says that the pain feels like a "bursting" sensation and that it frequently causes her to wake up in tears. She states that the pain is exacerbated when she eats greasy food. She states last Tuesday marked a 2 1/2 week time period in which she did not have a BM. This prompted her to start taking Miralax daily. After 1 week of Miralax, she finally had a BM the following Tuesday which was multiple episodes of diarrhea NB, which was accompanied by several episodes of NBNB emesis. This continued into . Since , pt has not had any further episodes of diarrhea or emesis. But the pain has persisted prompting her to come to ED. The pt states that she is passing flatus regularly. She states that this is at times painful. She says she feels like she needs to move her bowels but is unable. She states that she has decreased appetite, but is hungry and would like to eat. A CT was ordered in ED which should findings suggestive of a possible SBO for surgery was consulted. PMH: COPD, anxiety, depression, constipation, chronic back pain 2/2 herniated disc PSH: ovarian cystectomy x 2, fibroids, tubal ligation Meds: MAR reviewed ALL: PCN, hydroxyzine Social: +Tobacco/ETOH, no drugs Fhx: non-contributory Review of Systems - Review of Systems All systems: reviewed and no additional remarkable complaints except (HPI) Past Patient History - Infectious Disease Hx of Infectious Diseases: None - Tetanus Immunizations Tetanus Immunization: Unknown - Past Medical History & Family History Past Medical History?: Yes - Past Social History Smoking Status: Light Smoker < 10 Cigarettes Daily - CARDIAC Hx Cardiac Disorders: No Other/Comment: Sepsis last admission about 3 weeks ago. - PULMONARY Hx Respiratory Disorders: Yes (SMOKES PPD QUIT) - NEUROLOGICAL Hx Neurological Disorder: No - HEENT Hx HEENT Problems: Yes (eyeglasses) - RENAL Hx Chronic Kidney Disease: No - ENDOCRINE/METABOLIC Hx Endocrine Disorders: No - HEMATOLOGICAL/ONCOLOGICAL Hx Blood Disorders: No - INTEGUMENTARY Hx Dermatological Problems: Yes (TATTOOS) Other/Comment: multiple skin discolorations ble - MUSCULOSKELETAL/RHEUMATOLOGICAL Hx Falls: No - GASTROINTESTINAL Hx Gastrointestinal Disorders: Yes (CONSTIPATION) - GENITOURINARY/GYNECOLOGICAL Hx Genitourinary Disorders: Yes (OVARIAN CYSTECTOMY X 2.) - PSYCHIATRIC Hx Psychophysiologic Disorder: Yes Hx Anxiety: Yes Hx Depression: Yes Hx Substance Use: No - SURGICAL HISTORY Hx Appendectomy: (pt denies) Other/Comment: MYOMECTOMY, uterine fibroid sx,ovarian cystectomy x2, cyst removed from behind r knee, tubal ligation, d&c - ANESTHESIA Hx Anesthesia: Yes Hx Anesthesia Reactions: No Hx Malignant Hyperthermia: No Meds Allergies/Adverse Reactions: Allergies Allergy/AdvReac Type Severity Reaction Status Date / Time hydroxyzine Allergy Severe FATIGUE Verified 10/16/16 15:28 hydroxyzine HCl [From Atarax] Allergy FATIGUE Verified 10/16/16 15:28 Penicillins Allergy RASH Verified 10/16/16 15:28 - Medications Medications: Current Medications Acetaminophen (Tylenol 325mg Tab) 650 mg PO Q6 PRN PRN Reason: Fever >100.4 F Albuterol/Ipratropium (Duoneb 3 Mg/0.5 Mg (3 Ml) Ud) 3 ml IH Q6H PRN PRN Reason: Wheezing Alprazolam (Xanax) 2 mg PO BID PRN PRN Reason: Anxiety Arformoterol Tartrate (Brovana) 15 mcg IH [id number] Budesonide (Pulmicort Respules) 0.5 mg IH Q12 [facility] Enoxaparin Sodium (Lovenox) 40 mg SC DAILY [facility] PRN Reason: Protocol Famotidine (Pepcid) 20 mg PO BID [facility] Potassium Chloride 20 meq/ (Dextrose/Sodium Chloride) 1,010 mls @ 125 mls/hr IV .Q8H5M [facility] Ondansetron HCl (Zofran Inj) 4 mg IVP Q6 PRN PRN Reason: Nausea/Vomiting Oxycodone HCl (Oxycodone Immediate Release Tab) 30 mg PO BID PRN PRN Reason: Pain, severe (8-10) Oxycodone HCl (Oxycontin Extended Release Tab) 80 mg PO Q12H G[facility]Y Physical Exam - Constitutional Appears: Non-toxic, No Acute Distress - Head Exam Head Exam: ATRAUMATIC, NORMOCEPHALIC - Eye Exam Eye Exam: EOMI. absent: Scleral icterus - ENT Exam ENT Exam: Mucous Membranes Moist, Normal External Ear Exam - Neck Exam Neck exam: Positive for: Full Rom - Respiratory Exam Respiratory Exam: NORMAL BREATHING PATTERN. absent: Accessory Muscle Use, Respiratory Distress - GI/Abdominal Exam GI & Abdominal Exam: Firm, Tenderness (mild). absent: Distended, Guarding, Hernia, Rebound, Rigid - Extremities Exam Extremities exam: Negative for: calf tenderness, pedal edema - Neurological Exam Neurological exam: Alert, Oriented x3 Results - Vital Signs Recent Vital Signs: Last Vital Signs Temp 98.4 F 10/16/16 15:13 Pulse 72 10/16/16 21:05 Resp 18 10/16/16 21:05 BP 117/73 10/16/16 21:05 Pulse Ox 97 10/16/16 21:05 - Labs Result Diagrams: 10/16/16 16:35 10/16/16 16:35 - Imaging and Cardiology CT scan - abdomen Status: Image reviewed by me, Report reviewed by me Assessment & Plan - Assessment and Plan (Free Text) Assessment: 51F w abd pain 2/2 opioid induced constipation vs SBO vs enteritis -bowel rest -serial abd exams -pain management -case d/w Dr. Quintanilla Zemaitis PGY2 <Pernell Quintanilla - Last Filed: 10/20/16 20:52> Results - Vital Signs Recent Vital Signs: Last Vital Signs Temp 98.4 F 10/18/16 07:30 Pulse 60 10/18/16 07:30 Resp 20 10/18/16 07:30 BP 100/60 10/18/16 07:30 Pulse Ox 97 10/18/16 07:30 - Labs Result Diagrams: 10/18/16 06:30 10/18/16 06:30 Attending/Attestation - Attestation I have personally seen and examined this patient.: Yes I have fully participated in the care of the patient.: Yes I have reviewed all pertinent clinical information: Yes Notes (Text): 10/20/16 20:50 Pt was seen and examined at bedside on 10/17/16 Agree with above note and assessment Pt with Opiod induced constipation. No evidence of PSBO. No need for surgical intervention at present. F.U as out pt. Plan d.w pt and primary team in detail Risk and benefit explained in detail.
[2016-10-16] MEDS: oxyCODONE 30 mg Immediate Release Tab PO PRN (21:31)
[2016-10-16] MEDS ORDERED: oxyCODONE 80 mg ER Tab (oxyCONTIN) PO SCH (22:00)
[2016-10-17] MEDS: oxyCODONE 80 mg ER Tab (oxyCONTIN) PO SCH ×2 (04:23→17:46)
[2016-10-17 06:48] LABS: ADD MANUAL DIFF? NO
[2016-10-17 07:10] LABS: BASO # 0.01 K/mm3 (0.0-2.0); BASO % 0.2 % (0.0-3.0); GRAN % 81.4 % (50.0-68.0); HEMATOCRIT 38.5 % (36.0-48.0); LYMPH # 0.7 (1.2-3.4); LYMPH % 14.7 % (22.0-35.0); MEAN CELL VOLUME 92.3 fL (80.0-105.0); MEAN CORPUSCULAR HEMOGLOBIN 30.7 pg (25.0-35.0); MEAN CORPUSCULAR HGB CONC 33.2 g/dl (31.0-37.0); MONO # 0.2 (0.1-0.6); MONO % 3.7 % (1.0-6.0); PLATELET COUNT 137 10^3/uL (120.0-450.0); RED CELL DISTRIBUTION WIDTH 12.8 % (11.5-14.5); WHITE BLOOD COUNT 4.6 10^3/ul (4.5-11.0)
[2016-10-17 07:16] LABS: ALB/GLOB RATIO 1.1 (1.1-1.8); ALKALINE PHOSPHATASE 83 U/L (38-133); ALT/SGPT 27 U/L (7-56); AST/SGOT 23 U/L (15-39); BILIRUBIN,TOTAL 0.6 mg/dL (0.2-1.3); BLOOD UREA NITROGEN 9 mg/dL (7-21); CALCIUM 9.3 mg/dL (8.4-10.5); CARBON DIOXIDE 28 mmol/L (21-33); CHLORIDE 103 mmol/L (98-107); GFR AFRICAN-AMERICAN > 60; GLUCOSE,RANDOM 119 mg/dL (70-110); POTASSIUM 4.7 mmol/L (3.6-5.0); SODIUM 140 mmol/L (132-148); TOTAL PROTEIN 6.8 g/dL (5.8-8.3)
[2016-10-17] MEDS: Potassium Chloride 20 MEQ in Dextrose 5%/0.45% NS 1,000 ML IV SCH ×2 (08:00→15:22)
[2016-10-17] MEDS: Arformoterol 15 mcg/2 ml Inh Sol IH SCH ×2 (08:04→20:01)
[2016-10-17] MEDS: Budesonide 0.5 mg/2 ml Inhal Susp UD IH SCH ×2 (08:04→20:01)
[2016-10-17] MEDS: oxyCODONE 30 mg Immediate Release Tab PO PRN ×3 (08:40→22:54)
[2016-10-17] MEDS: Enoxaparin 40 mg Syringe SC SCH (09:26)
--- NOTE | 2016-10-17 12:37 | CP.PCM.PN ---
<Carlito Stephens - Last Filed: 10/17/16 12:29> Subjective - Date & Time of Evaluation Date of Evaluation: 10/17/16 Time of Evaluation: 08:50 - Subjective Subjective: Hospitalist progress note: Pt seen and examined at bedside. No acute events overnight. Pt c/o constipation and abdominal pain. Denies any n/v. She denies any headaches, dizziness, f/c, sob, cp, palpitations, abd pain, n/v, urinary changes. Objective - Vital Signs/Intake and Output Vital Signs (last 24 hours): Temp Pulse Resp BP Pulse Ox 98.4 F 77 18 94/60 L 98 10/17/16 07:29 10/17/16 07:29 10/17/16 07:29 10/17/16 07:29 10/17/16 07:29 - Medications Medications: Current Medications Acetaminophen (Tylenol 325mg Tab) 650 mg PO Q6 PRN PRN Reason: Fever >100.4 F Albuterol/Ipratropium (Duoneb 3 Mg/0.5 Mg (3 Ml) Ud) 3 ml IH Q6H PRN PRN Reason: Wheezing Alprazolam (Xanax) 2 mg PO BID PRN PRN Reason: Anxiety Arformoterol Tartrate (Brovana) 15 mcg IH [id number] [facility] Last Admin: 10/17/16 08:04 Dose: 15 mcg Budesonide (Pulmicort Respules) 0.5 mg IH Q12 [facility] Last Admin: 10/17/16 08:04 Dose: 0.5 mg Enoxaparin Sodium (Lovenox) 40 mg SC DAILY [facility] PRN Reason: Protocol Last Admin: 10/17/16 09:26 Dose: 40 mg Famotidine (Pepcid) 20 mg PO BID [facility] Last Admin: 10/17/16 09:26 Dose: 20 mg Potassium Chloride 20 meq/ (Dextrose/Sodium Chloride) 1,010 mls @ 125 mls/hr IV .Q8H5M [facility] Ondansetron HCl (Zofran Inj) 4 mg IVP Q6 PRN PRN Reason: Nausea/Vomiting Oxycodone HCl (Oxycodone Immediate Release Tab) 30 mg PO BID PRN PRN Reason: Pain, severe (8-10) Last Admin: 04/30/17 08:40 Dose: 30 mg Oxycodone HCl (Oxycontin Extended Release Tab) 80 mg PO Q12H [facility] Last Admin: 10/17/16 04:23 Dose: 80 mg - Labs Labs: 10/17/16 06:30 10/17/16 06:30 PT 12.7 Seconds (9.9-11.8) H 10/16/16 16:35 INR 1.18 (0.93-1.08) H 10/16/16 16:35 APTT 26.1 Seconds (23.7-30.8) 10/16/16 16:35 - Constitutional Appears: No Acute Distress - Head Exam Head Exam: ATRAUMATIC, NORMAL INSPECTION, NORMOCEPHALIC - Eye Exam Eye Exam: EOMI, Normal appearance, PERRL - ENT Exam ENT Exam: Mucous Membranes Moist, Normal Exam - Neck Exam Neck Exam: Full ROM, Normal Inspection. absent: Lymphadenopathy - Respiratory Exam Respiratory Exam: Clear to Ausculation Bilateral, NORMAL BREATHING PATTERN. absent: Rales, Wheezes - Cardiovascular Exam Cardiovascular Exam: REGULAR RHYTHM, RRR, +S1, +S2. absent: Murmur - GI/Abdominal Exam GI & Abdominal Exam: Soft, Tenderness. absent: Distended - Extremities Exam Extremities Exam: absent: Calf Tenderness - Neurological Exam Neurological Exam: Alert, Awake, Oriented x3 - Psychiatric Exam Psychiatric exam: Normal Affect, Normal Mood - Skin Skin Exam: Dry, Intact, Normal Color, Warm Assessment and Plan - Assessment and Plan (Free Text) Assessment: 51F w/PMH sig for COPD, herniated discs, anxiety, pelvic congestion syndrome, and opiate abuse/dependence admitted for abdominal pain, possible partial SBO vs opiod induced ileus vs constipation. 1. Abdominal pain likely 2/2 pSBO vs enteritis NPO with ice chips Pain Control Tylenol PRN for Fever Zofran PRN D5 1/2NS@125 No colace at this time No Methylnaltrexone at this time CT abdomen/pelvis w/dilated small bowel loops, awaiting official read Surgery consulted- [place]- rec bowel rest and serial abd exam F/u GI recs Dr branch 2. Hx COPD Duonebs PRN Brovana and Pulmicort Monitor 3. Hx Anxiety Cont home med: Xanax 2mg PO BID 4. Hx herniated disc Cont home meds: Oxycodone 80mg and 30mg BID 5. GI/DVT ppx Lovenox and SCDs Pepcid Case and plan was seen, reviewed, and discussed in detail with Dr Hines. <Vicki Hines - Last Filed: 10/17/16 14:00> Objective - Vital Signs/Intake and Output Vital Signs (last 24 hours): Temp Pulse Resp BP Pulse Ox 98.4 F 77 18 94/60 L 98 10/17/16 07:29 10/17/16 07:29 10/17/16 07:29 10/17/16 07:29 10/17/16 07:29 - Medications Medications: Current Medications Acetaminophen (Tylenol 325mg Tab) 650 mg PO Q6 PRN PRN Reason: Fever >100.4 F Albuterol/Ipratropium (Duoneb 3 Mg/0.5 Mg (3 Ml) Ud) 3 ml IH Q6H PRN PRN Reason: Wheezing Alprazolam (Xanax) 2 mg PO BID PRN PRN Reason: Anxiety Arformoterol Tartrate (Brovana) 15 mcg IH [id number] [facility] Last Admin: 10/17/16 08:04 Dose: 15 mcg Budesonide (Pulmicort Respules) 0.5 mg IH Q12 [facility] Last Admin: 10/17/16 08:04 Dose: 0.5 mg Enoxaparin Sodium (Lovenox) 40 mg SC DAILY [facility] PRN Reason: Protocol Last Admin: 10/17/16 09:26 Dose: 40 mg Famotidine (Pepcid) 20 mg PO BID [facility] Last Admin: 10/17/16 09:26 Dose: 20 mg Potassium Chloride 20 meq/ (Dextrose/Sodium Chloride) 1,010 mls @ 125 mls/hr IV .Q8H5M [facility] Ondansetron HCl (Zofran Inj) 4 mg IVP Q6 PRN PRN Reason: Nausea/Vomiting Oxycodone HCl (Oxycodone Immediate Release Tab) 30 mg PO BID PRN PRN Reason: Pain, severe (8-10) Last Admin: 10/17/16 08:40 Dose: 30 mg Oxycodone HCl (Oxycontin Extended Release Tab) 80 mg PO Q12H [facility] Last Admin: 10/17/16 04:23 Dose: 80 mg - Labs Labs: PT 12.7 Seconds (9.9-11.8) H 10/16/16 16:35 INR 1.18 (0.93-1.08) H 10/16/16 16:35 APTT 26.1 Seconds (23.7-30.8) 10/16/16 16:35 Attending/Attestation - Attestation I have personally seen and examined this patient.: Yes I have fully participated in the care of the patient.: Yes I have reviewed all pertinent clinical information, including history, physical exam and plan: Yes Notes (Text): 10/17/16 13:55 Attending note: patient seen and examined with resident. patient is a 51-year-old female with a history of chronic opiate dependency, back pain, chronic pelvic pain is admitted with constipation. CT showed possible ileus versus small bowel obstruction secondary to chronic opiate use. Case discussed with Surgery in detail. started on clear liquid diet. Enema ordered. GI evaluation requested. Patient is strongly advised to taper and DC opiates. Patient is not willing to decrease the dose or discontinue opiates. Patient states that she is approved for [facility] as outpatient. Upon discharge the patient will follow-up with PMD .
--- NOTE | 2016-10-17 13:13 | CP.PCM.PN ---
<Aurelio Bañuelos - Last Filed: 10/17/16 13:09> Subjective - Date & Time of Evaluation Date of Evaluation: 10/17/16 Time of Evaluation: 07:09 - Subjective Subjective: General Surgery Progress Note for Dr. Quintanilla This 51F was seen and examined this AM at bedside. She reports no acute events overnight. She denies BM and reports flatus. She has no new complaints at this time she denies any fevers, chills, chest pain, nausea, vomiting or diarrhea. Objective - Vital Signs/Intake and Output Vital Signs (last 24 hours): Temp Pulse Resp BP Pulse Ox 98.4 F 77 18 94/60 L 98 10/17/16 07:29 10/17/16 07:29 10/17/16 07:29 10/17/16 07:29 10/17/16 07:29 - Medications Medications: Current Medications Acetaminophen (Tylenol 325mg Tab) 650 mg PO Q6 PRN PRN Reason: Fever >100.4 F Albuterol/Ipratropium (Duoneb 3 Mg/0.5 Mg (3 Ml) Ud) 3 ml IH Q6H PRN PRN Reason: Wheezing Alprazolam (Xanax) 2 mg PO BID PRN PRN Reason: Anxiety Arformoterol Tartrate (Brovana) 15 mcg IH [id number] [facility] Last Admin: 10/17/16 08:04 Dose: 15 mcg Budesonide (Pulmicort Respules) 0.5 mg IH Q12 [facility] Last Admin: 10/17/16 08:04 Dose: 0.5 mg Enoxaparin Sodium (Lovenox) 40 mg SC DAILY [facility] PRN Reason: Protocol Last Admin: 10/17/16 09:26 Dose: 40 mg Famotidine (Pepcid) 20 mg PO BID [facility] Last Admin: 10/17/16 09:26 Dose: 20 mg Potassium Chloride 20 meq/ (Dextrose/Sodium Chloride) 1,010 mls @ 125 mls/hr IV .Q8H5M [facility] Ondansetron HCl (Zofran Inj) 4 mg IVP Q6 PRN PRN Reason: Nausea/Vomiting Oxycodone HCl (Oxycodone Immediate Release Tab) 30 mg PO BID PRN PRN Reason: Pain, severe (8-10) Last Admin: 10/17/16 08:40 Dose: 30 mg Oxycodone HCl (Oxycontin Extended Release Tab) 80 mg PO Q12H [facility] Last Admin: 10/17/16 04:23 Dose: 80 mg - Labs Labs: PT 12.7 Seconds (9.9-11.8) H 10/16/16 16:35 INR 1.18 (0.93-1.08) H 10/16/16 16:35 APTT 26.1 Seconds (23.7-30.8) 10/16/16 16:35 - Constitutional Appears: Non-toxic, No Acute Distress - Head Exam Head Exam: ATRAUMATIC, NORMOCEPHALIC - Eye Exam Eye Exam: EOMI, Normal appearance - ENT Exam ENT Exam: Mucous Membranes Moist - Respiratory Exam Respiratory Exam: NORMAL BREATHING PATTERN - Cardiovascular Exam Cardiovascular Exam: +S1, +S2 - GI/Abdominal Exam GI & Abdominal Exam: Soft. absent: Distended, Firm, Guarding, Rigid, Tenderness - Neurological Exam Neurological Exam: Alert, Awake - Psychiatric Exam Psychiatric exam: Normal Affect, Normal Mood - Skin Skin Exam: Dry, Intact Assessment and Plan - Assessment and Plan (Free Text) Assessment: This is a 51F w abd pain 2/2 opioid induced constipation vs SBO vs enteritis CLD No surgical intervention at this time Continue management per primary team D/W Dr. Socorro Bañuelos PGY-6 <Pernell Quintanilla B - Last Filed: 10/20/16 20:55> Objective - Vital Signs/Intake and Output Vital Signs (last 24 hours): Temp Pulse Resp BP Pulse Ox 98.4 F 60 20 100/60 97 10/18/16 07:30 10/18/16 07:30 10/18/16 07:30 10/18/16 07:30 10/18/16 07:30 - Labs Labs: 10/18/16 06:30 10/18/16 06:30 PT 12.7 Seconds (9.9-11.8) H 10/16/16 16:35 INR 1.18 (0.93-1.08) H 10/16/16 16:35 APTT 26.1 Seconds (23.7-30.8) 10/16/16 16:35 Attending/Attestation - Attestation I have personally seen and examined this patient.: Yes I have fully participated in the care of the patient.: Yes I have reviewed all pertinent clinical information, including history, physical exam and plan: Yes Notes (Text): 10/20/16 20:54 Pt was seen and examined at bedside on 10/17/16 Agree with above note and assessment Pt with Opiod induced constipation. No evidence of PSBO. No need for surgical intervention at present. F.U as out pt. Plan d.w pt and primary team in detail Risk and benefit explained in detail.
--- NOTE | 2016-10-17 14:20 | RAD ---
HISTORY: sob COMPARISON: 09/26/2016 inNo prior. FINDINGS: LUNGS: No active pulmonary disease. PLEURA: No significant pleural effusion identified, no pneumothorax apparent. CARDIOVASCULAR: Normal. OSSEOUS STRUCTURES: No significant abnormalities. VISUALIZED UPPER ABDOMEN: Normal. OTHER FINDINGS: None. IMPRESSION: No active disease.
--- NOTE | 2016-10-17 18:30 | CT ---
PROCEDURE: CT Abdomen and pelvis dated 10/16/2016 HISTORY: abd pain, vomiting - r/o obstruction COMPARISON: Comparison made with CT scan of the abdomen and pelvis dated 09/12/2016. TECHNIQUE: Contiguous axial images of the abdomen and pelvis. IV contrast injected. Coronal and Sagittal reformats generated. This CT exam was performed using one or more of the following dose reduction techniques: Automated exposure control, adjustment of the mA and/or kV according to patient size, and/or use of iterative reconstruction technique. Contrast dose: 96 cc Omnipaque 350 contrast material Radiation dose: Total exam DLP = 231.05 mGy-cm. FINDINGS: LOWER THORAX: Minor passive atelectasis both posterior lower lung zones. Versus small subpleural nodular density measuring approximately 5.3 left posterolateral sulcus. Followup CT scan chest could be performed for further evaluation. No effusion. No evidence of basilar pneumothorax. Liver exhibits normal size measuring approximately 16 cm in CC dimension. LIVER: Liver exhibits normal size measuring nearly 16 cm in CC dimension. Mild diffuse fatty hepatic infiltration. Additionally, there appears to be some minimal periportal edema GALLBLADDER AND BILE DUCTS: Gallbladder appears incompletely distended which may account for slight thick-walled appearance which could be secondary to nonfasting state. . No obvious intraluminal gallbladder calculi. PANCREAS: Pancreas appears somewhat atrophic particularly in the mid body region. No obvious pancreatic mass or collection. SPLEEN: Spleen exhibits normal size and attenuation pattern. ADRENALS: No adrenal lesions KIDNEYS AND URETERS: The kidneys exhibit symmetric nephrograms. Suspect very tiny cortical cyst anterior aspect midpole right kidney. No evidence of nephrolithiasis or obstructive hydrocephalus. BLADDER: Urinary bladder is physiologically distended. No evidence of intraluminal urinary bladder calculi. REPRODUCTIVE: There are multiple small enhancing serpiginous vessels seen about the uterus. Rule out pelvic congestion syndrome. . . APPENDIX: Normal-appearing appendix. BOWEL: Evaluation of the bowel is somewhat limited due to the lack of up oral contrast material. The stomach is incompletely distended which presumably accounts for thick-walled appearance. Gastritis not excluded. Other intrinsic/ invasive wall lesion would be less likely in the absence of a pertinent history but not completely excluded. There are several on distended fluid-filled loops of proximal small bowel in the mid and upper abdomen that are nonspecific. The possibility of a localized ileus versus closed loop obstruction to be considered. Followup study at interval could be performed to assess stability. Large amount of stool is seen throughout the colon particularly the cecum at ascending and transverse colon. Findings consistent with constipation. PERITONEUM: Unremarkable. No fluid collection. No free air. LYMPH NODES: Unremarkable. No enlarged lymph nodes. VASCULATURE: Unremarkable. No aortic aneurysm. BONES: No fracture or destructive lesion. OTHER FINDINGS: None. IMPRESSION: Questionable localized ileus versus closed loop small bowel involving the proximal small bowel. Followup study recommended. Findings also consistent with constipation. The gallbladder is incompletely distended which may account for slight thick-walled appearance. This is likely due to nonfasting state. No evidence of nephrolithiasis or hydronephrosis. . Suspect tiny cortical cyst right kidney. Findings suggest a pelvic congestion syndrome. Small 5.3 mm nodule left lung base. Consider followup nonemergent CT scan chest in 6 months for further evaluation. See above discussion for additional findings and details.
--- NOTE | 2016-10-17 22:14 | CARD ---
APPROVED REPORT EKG Measurement Heart [id number] <Conclusion> Normal sinus rhythm Possible Left atrial enlargement Borderline ECG
--- NOTE | 2016-10-17 22:30 | CON ---
DATE: 10/17/2016 The patient was seen and evaluated earlier today. The patient has a history of chronic back pain, ne ck pain. The patient has been on chronic pain medication, OxyContin 80 mg b.i.d. and also oxycodone 30 mg daily. The patient also has history of anxiety, depression, on Xanax. She has a history of ch ronic constipation. The patient has been on MiraLax. She started using MiraLax p.r.n. episodes of v omiting. The patient is also taking stool softeners. Has episode of vomiting and abdominal pain. C mariana to the Emergency Room. At home, she found her temperature to be around [address] [facility] Emergency Room. She remains afebrile. PAST MEDICAL HISTORY: Other past medical history significant as above, history of COPD, chronic cons tipation, herniated disk, . SURGICAL HISTORY: Positive for fibroid removal and ovarian cystectomy and tubal ligation. 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 The patient's primary is Dr. Clark. ALLERGIES: ALLERGIC TO PENICILLIN AND HYDROXYZINE. SOCIAL HISTORY: Positive for smoking 1 pack per day for 20 years. Recently cut down to half a pack. Denies any alcohol use. REVIEW OF SYSTEMS: Positive as above. PHYSICAL EXAMINATION: GENERAL: The patient is lying on the bed, not in acute distress. VITAL SIGNS: Temperature is 98.4, blood pressure is 94/60, respirations 18, O2 saturation 98%. HEENT: Atraumatic, anicteric. NECK: Supple. HEART: S1, S2 heard. LUNGS: Bilateral air entry present. ABDOMEN: Soft. There is a mild tenderness present. No rebound or guarding. EXTREMITIES: No cyanosis, no clubbing. NEUROLOGIC: Alert, oriented. Moves all the extremities. LABORATORY DATA: Hemoglobin 12.8, hematocrit 38.5, WBC 4.6, platelets 137. Chemistry is essentially unremarkable. The CT scan of the abdomen and pelvis was reviewed. The CT was done with only IV con trast and was found to have a distended fluid filled loops of the proximal small bowel. There is a l arge amount of stool present in the right colon and also transverse colon and small amount in the lef t colon. Urinalysis was negative. IMPRESSION: This 51-year-old patient with chronic back pain, on chronic pain medication, chronic con stipation, admitted with episodes of vomiting and abdominal pain. CT showed distended loops of the s mall bowel. History of fever at home, no documented fever in the hospital. RECOMMENDATION: 1. Followup of the cultures. 2. The patient is on clear liquid diet, tolerating. The patient did have Relistor before for the grace wel movements. We will start the patient also on MiraLax. The patient is tolerating liquid diet and we slowly advance diet to low residue diet. If the patient is symptomatic or worsening of the symptoms, we will consider repeating the CT scan with oral contrast to further evaluate the mildly d ilated proximal small bowel. Thank you very much for allowing me to participate in the care of the patient. We will continue to c losely follow up her care and suggest further management based on the clinical course. Tomeka Pedraza MD cc: [id number] TT: 10/17/2016 22:29:25 Confirmation # [id number] Dictation # [id number] truman
[2016-10-18] MEDS: oxyCODONE 80 mg ER Tab (oxyCONTIN) PO SCH ×2 (04:03→16:09)
[2016-10-18] MEDS: oxyCODONE 30 mg Immediate Release Tab PO PRN ×2 (06:10→14:10)
[2016-10-18 06:52] LABS: ADD MANUAL DIFF? NO
[2016-10-18 07:16] LABS: BASO # 0.06 K/mm3 (0.0-2.0); BASO % 1.2 % (0.0-3.0); EOS # 0.2 (0.0-0.7); GRAN # 2.11 (1.4-6.5); GRAN % 42.1 % (50.0-68.0); HEMATOCRIT 36.6 % (36.0-48.0); LYMPH # 2.3 (1.2-3.4); LYMPH % 46.5 % (22.0-35.0); MEAN CELL VOLUME 92.7 fL (80.0-105.0); MEAN CORPUSCULAR HEMOGLOBIN 30.6 pg (25.0-35.0); MEAN CORPUSCULAR HGB CONC 33.1 g/dl (31.0-37.0); MEAN PLATELET VOLUME 12.7 fl (7.0-11.0); MONO # 0.4 (0.1-0.6); MONO % 7.2 % (1.0-6.0); PLATELET COUNT 130 10^3/uL (120.0-450.0); RED CELL DISTRIBUTION WIDTH 13.2 % (11.5-14.5)
[2016-10-18 07:30] LABS: ALB/GLOB RATIO 1.2 (1.1-1.8); ALKALINE PHOSPHATASE 74 U/L (38-133); ALT/SGPT 30 U/L (7-56); AST/SGOT 27 U/L (15-39); BILIRUBIN,TOTAL 0.5 mg/dL (0.2-1.3); BLOOD UREA NITROGEN 12 mg/dL (7-21); CALCIUM 9.2 mg/dL (8.4-10.5); CARBON DIOXIDE 28 mmol/L (21-33); CHLORIDE 103 mmol/L (95-110); GFR AFRICAN-AMERICAN > 60; GLUCOSE,RANDOM 85 mg/dL (70-110); POTASSIUM 3.9 mmol/L (3.6-5.0); SODIUM 139 mmol/L (132-148); TOTAL PROTEIN 6.9 g/dL (5.8-8.3)
[2016-10-18 07:40] VITALS: BP 100/60; PULSE 60; RESP 20; TEMP 98.4; O2SAT 97
[2016-10-18] MEDS ORDERED: Mineral Oil Enema 135 ml RC ONE (07:59)
--- NOTE | 2016-10-18 08:03 | CP.PCM.PN ---
Subjective - Date & Time of Evaluation Date of Evaluation: 10/18/16 Time of Evaluation: 07:59 - Subjective Subjective: General Surgery: Dr Quintanilla Pt S&E. CECILIA. Pt reports mild lower abdominal discomfort this morning. States she is passing flatus but still has not had a BM. Had one enema yesterday which was unsuccessful. Denies N/V, F/C. Tolerating FLD. Objective - Vital Signs/Intake and Output Vital Signs (last 24 hours): Temp Pulse Resp BP Pulse Ox 98.4 F 60 20 100/60 97 10/18/16 07:30 10/18/16 07:30 10/18/16 07:30 10/18/16 07:30 10/18/16 07:30 Intake and Output: 10/18/16 10/18/16 06:59 18:59 Intake Total 1140 Balance 1140 - Medications Medications: Current Medications Acetaminophen (Tylenol 325mg Tab) 650 mg PO Q6 PRN PRN Reason: Fever >100.4 F Albuterol/Ipratropium (Duoneb 3 Mg/0.5 Mg (3 Ml) Ud) 3 ml IH Q6H PRN PRN Reason: Wheezing Last Admin: 10/17/16 20:01 Dose: 3 ml Alprazolam (Xanax) 2 mg PO BID PRN PRN Reason: Anxiety Last Admin: 10/17/16 20:11 Dose: 2 mg Arformoterol Tartrate (Brovana) 15 mcg IH [id number] [facility] Last Admin: 10/17/16 20:01 Dose: 15 mcg Budesonide (Pulmicort Respules) 0.5 mg IH Q12 [facility] Last Admin: 10/17/16 20:01 Dose: 0.5 mg Enoxaparin Sodium (Lovenox) 40 mg SC DAILY [facility] PRN Reason: Protocol Last Admin: 10/17/16 09:26 Dose: 40 mg Famotidine (Pepcid) 20 mg PO BID [facility] Last Admin: 10/17/16 17:47 Dose: 20 mg Ondansetron HCl (Zofran Inj) 4 mg IVP Q6 PRN PRN Reason: Nausea/Vomiting Oxycodone HCl (Oxycodone Immediate Release Tab) 30 mg PO BID PRN PRN Reason: Pain, severe (8-10) Last Admin: 10/18/16 06:10 Dose: 30 mg Oxycodone HCl (Oxycontin Extended Release Tab) 80 mg PO Q12H [facility] Last Admin: 10/18/16 04:03 Dose: 80 mg Polyethylene Glycol (Miralax) 17 gm PO BID [facility] - Labs Labs: 10/18/16 06:30 10/18/16 06:30 PT 12.7 Seconds (9.9-11.8) H 10/16/16 16:35 INR 1.18 (0.93-1.08) H 10/16/16 16:35 APTT 26.1 Seconds (23.7-30.8) 10/16/16 16:35 - Constitutional Appears: Non-toxic, No Acute Distress - Head Exam Head Exam: NORMOCEPHALIC - Respiratory Exam Respiratory Exam: absent: Accessory Muscle Use, Respiratory Distress - Cardiovascular Exam Cardiovascular Exam: absent: Tachycardia - GI/Abdominal Exam GI & Abdominal Exam: Firm (lower quadrants). absent: Distended, Guarding, Rigid , Tenderness, Hernia, Mass - Neurological Exam Neurological Exam: Alert, Awake, Oriented x3 - Psychiatric Exam Psychiatric exam: Normal Affect, Normal Mood - Skin Skin Exam: Normal Color, Warm Assessment and Plan - Assessment and Plan (Free Text) Assessment: 51F with constipation, likely opiod induced Plan: Pt mildly improved, passing flatus, tolerating diet, unlikely obstructed Will order mineral oil enema cont diet as ordered additional bowel regiment per GI no surgical intervention planned d/w Dr Socorro Peters, DO, PGY2
[2016-10-18] MEDS: Enoxaparin 40 mg Syringe SC SCH (09:03)
[2016-10-18] MEDS: POLYETHYLENE GLYCOL 3350 17 GM/Dose PACKET PO SCH ×2 (09:03→17:34)
[2016-10-18] MEDS ORDERED: Barium Sulfate Susp 2.1% w/v, 2.0% w/w 450 mL Bottle PO ONE (09:24)
--- NOTE | 2016-10-18 09:55 | CP.PCM.PN ---
<Carlito Stephens - Last Filed: 10/18/16 10:03> Subjective - Date & Time of Evaluation Date of Evaluation: 10/18/16 Time of Evaluation: 07:15 - Subjective Subjective: Hospitalist progress note: Pt seen and examined at bedside. No acute events overnight. Pt states that she had a bowel movement following enema. Pt still complains of mid epigastric abd pain. Denies any n/v. Tolerating diet. Ambulating. She denies any headaches, dizziness, f/c, sob, cp, palpitations, abd pain, n/v, urinary changes. Objective - Vital Signs/Intake and Output Vital Signs (last 24 hours): Temp Pulse Resp BP Pulse Ox 98.4 F 60 20 100/60 97 10/18/16 07:30 10/18/16 07:30 10/18/16 07:30 10/18/16 07:30 10/18/16 07:30 Intake and Output: 10/18/16 10/18/16 06:59 18:59 Intake Total 1140 Balance 1140 - Medications Medications: Current Medications Acetaminophen (Tylenol 325mg Tab) 650 mg PO Q6 PRN PRN Reason: Fever >100.4 F Albuterol/Ipratropium (Duoneb 3 Mg/0.5 Mg (3 Ml) Ud) 3 ml IH Q6H PRN PRN Reason: Wheezing Last Admin: 10/17/16 20:01 Dose: 3 ml Alprazolam (Xanax) 2 mg PO BID PRN PRN Reason: Anxiety Last Admin: 10/17/16 20:11 Dose: 2 mg Arformoterol Tartrate (Brovana) 15 mcg IH [id number] [facility] Last Admin: 10/17/16 20:01 Dose: 15 mcg Budesonide (Pulmicort Respules) 0.5 mg IH Q12 [facility] Last Admin: 10/17/16 20:01 Dose: 0.5 mg Enoxaparin Sodium (Lovenox) 40 mg SC DAILY [facility] PRN Reason: Protocol Last Admin: 10/18/16 09:03 Dose: 40 mg Famotidine (Pepcid) 20 mg PO BID [facility] Last Admin: 10/18/16 09:03 Dose: 20 mg Ondansetron HCl (Zofran Inj) 4 mg IVP Q6 PRN PRN Reason: Nausea/Vomiting Oxycodone HCl (Oxycodone Immediate Release Tab) 30 mg PO BID PRN PRN Reason: Pain, severe (8-10) Last Admin: 10/18/16 06:10 Dose: 30 mg Oxycodone HCl (Oxycontin Extended Release Tab) 80 mg PO Q12H [facility] Last Admin: 10/18/16 04:03 Dose: 80 mg Polyethylene Glycol (Miralax) 17 gm PO BID [facility] Last Admin: 10/18/16 09:03 Dose: 17 gm - Labs Labs: 10/18/16 06:30 10/18/16 06:30 PT 12.7 Seconds (9.9-11.8) H 10/16/16 16:35 INR 1.18 (0.93-1.08) H 10/16/16 16:35 APTT 26.1 Seconds (23.7-30.8) 10/16/16 16:35 - Constitutional Appears: No Acute Distress - Head Exam Head Exam: ATRAUMATIC, NORMAL INSPECTION, NORMOCEPHALIC - Eye Exam Eye Exam: EOMI, Normal appearance, PERRL - ENT Exam ENT Exam: Mucous Membranes Moist, Normal Exam - Neck Exam Neck Exam: Full ROM, Normal Inspection. absent: Lymphadenopathy - Respiratory Exam Respiratory Exam: Clear to Ausculation Bilateral, NORMAL BREATHING PATTERN. absent: Rales, Wheezes - Cardiovascular Exam Cardiovascular Exam: REGULAR RHYTHM, RRR, +S1, +S2. absent: Murmur - GI/Abdominal Exam GI & Abdominal Exam: Soft. absent: Distended, Guarding, Tenderness - Extremities Exam Extremities Exam: absent: Calf Tenderness - Neurological Exam Neurological Exam: Alert, Awake, Oriented x3 - Psychiatric Exam Psychiatric exam: Normal Affect, Normal Mood - Skin Skin Exam: Dry, Intact, Normal Color, Warm Assessment and Plan - Assessment and Plan (Free Text) Assessment: 51F w/PMH sig for COPD, herniated discs, anxiety, pelvic congestion syndrome, and opiate abuse/dependence admitted for abdominal pain, likelt 2/2 opiod induced constipation. 1. Abdominal pain likely opiod induced constipation. F/u CT abd with PO contrast GI diet Pain Control Consider Relistor none given yet F/u GI recs Dr Pedraza - added miralax, if abd pain order CT abd with PO contrast Tylenol PRN for Fever Zofran PRN No colace at this time CT abdomen/pelvis w/dilated small bowel loops, awaiting official read Surgery consulted- Socorro- order mineral oil enema, no surgical intervention at this time 2. Hx COPD Duonebs PRN Brovana and Pulmicort Monitor 3. Hx Anxiety Cont home med: Xanax 2mg PO BID 4. Hx herniated disc Cont home meds: Oxycodone 80mg and 30mg BID 5. GI/DVT ppx Lovenox and SCDs Pepcid Case and plan was seen, reviewed, and discussed in detail with Dr Hines. <Vicki Hines - Last Filed: 10/18/16 14:56> Objective - Vital Signs/Intake and Output Vital Signs (last 24 hours): Temp Pulse Resp BP Pulse Ox 98.4 F 60 20 100/60 97 10/18/16 07:30 10/18/16 07:30 10/18/16 07:30 10/18/16 07:30 10/18/16 07:30 Intake and Output: 10/18/16 10/18/16 06:59 18:59 Intake Total 1140 Balance 1140 - Medications Medications: Current Medications Acetaminophen (Tylenol 325mg Tab) 650 mg PO Q6 PRN PRN Reason: Fever >100.4 F Albuterol/Ipratropium (Duoneb 3 Mg/0.5 Mg (3 Ml) Ud) 3 ml IH Q6H PRN PRN Reason: Wheezing Last Admin: 10/17/16 20:01 Dose: 3 ml Alprazolam (Xanax) 2 mg PO BID PRN PRN Reason: Anxiety Last Admin: 10/17/16 20:11 Dose: 2 mg Arformoterol Tartrate (Brovana) 15 mcg IH [id number] [facility] Last Admin: 10/18/16 11:13 Dose: 15 mcg Budesonide (Pulmicort Respules) 0.5 mg IH Q12 [facility] Last Admin: 10/18/16 11:14 Dose: 0.5 mg Enoxaparin Sodium (Lovenox) 40 mg SC DAILY [facility] PRN Reason: Protocol Last Admin: 10/18/16 09:03 Dose: 40 mg Famotidine (Pepcid) 20 mg PO BID [facility] Last Admin: 10/18/16 09:03 Dose: 20 mg Ondansetron HCl (Zofran Inj) 4 mg IVP Q6 PRN PRN Reason: Nausea/Vomiting Oxycodone HCl (Oxycodone Immediate Release Tab) 30 mg PO BID PRN PRN Reason: Pain, severe (8-10) Last Admin: 10/18/16 14:10 Dose: 30 mg Oxycodone HCl (Oxycontin Extended Release Tab) 80 mg PO Q12H [facility] Last Admin: 10/18/16 04:03 Dose: 80 mg Polyethylene Glycol (Miralax) 17 gm PO BID [facility] Last Admin: 10/18/16 09:03 Dose: 17 gm - Labs Labs: 10/18/16 06:30 10/18/16 06:30 PT 12.7 Seconds (9.9-11.8) H 10/16/16 16:35 INR 1.18 (0.93-1.08) H 10/16/16 16:35 APTT 26.1 Seconds (23.7-30.8) 10/16/16 16:35 Attending/Attestation - Attestation I have personally seen and examined this patient.: Yes I have fully participated in the care of the patient.: Yes I have reviewed all pertinent clinical information, including history, physical exam and plan: Yes Notes (Text): 10/18/16 14:55 Attending note: patient seen and examined with resident. patient is a 51-year-old female with a history of chronic opiate dependency, back pain, chronic pelvic pain is admitted with constipation. CT showed possible ileus versus small bowel obstruction secondary to chronic opiate use. Case discussed with Surgery in detail. started on clear liquid diet. Currently started on regular diet . Enema ordered. Case discussed with GI Dr. Marr in detail. CT abdomen and pelvis with by mouth contrast ordered. Possible discharge home if there is no significant obstruction. Patient is currently tolerating regular diet. Patient is strongly advised to taper and DC opiates. Patient is not willing to decrease the dose or discontinue opiates. Patient states that she is approved for [facility] as outpatient. Upon discharge the patient will follow-up with PMD .
[2016-10-18] MEDS: Arformoterol 15 mcg/2 ml Inh Sol IH SCH (11:13)
[2016-10-18] MEDS: Budesonide 0.5 mg/2 ml Inhal Susp UD IH SCH (11:14)
--- NOTE | 2016-10-18 14:07 | CT ---
PROCEDURE: CT Abdomen and pelvis dated 10/18/2016. HISTORY: r/o obstruction COMPARISON: Comparison made with CT scan of the abdomen 10/16/2016 TECHNIQUE: Contiguous axial images of the abdomen and pelvis. Oral contrast was administered. No IV contrast given. Coronal and Sagittal reformats generated. Radiation dose: Total exam DLP = 210.73 mGy-cm. This CT exam was performed using one or more of the following dose reduction techniques: Automated exposure control, adjustment of the mA and/or kV according to patient size, and/or use of iterative reconstruction technique. FINDINGS: LOWER THORAX: Re- demonstrated is an approximately 5.3 mm pleural-based nodule posterolateral aspect left posterior sulcus unchanged no infiltrate or effusion. Tiny hiatal hernia felt to be present. 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 Previously suspected mild periportal edema is not appreciated on this study due to the lack of circulating intravenous contrast material. GALLBLADDER AND BILE DUCTS: Gallbladder appears physiologically distended. No evidence of intraluminal gallbladder calculi. PANCREAS: Pancreas appears grossly unremarkable. Previously suspected on atrophic changes mid body of the pancreas on prior study felt to be artifactual. No ductal dilatation. SPLEEN: Spleen is normal. ADRENALS: No adrenal lesions. KIDNEYS AND URETERS: Kidneys exhibit symmetric size. No evidence of nephrolithiasis or hydronephrosis. Previously at the suspected tiny cortical cyst anterior aspect right kidney not seen on this study due to the lack of circulating intravenous contrast material. BLADDER: Minimal wall thickening of the urinary bladder likely due to incomplete distention. Cystitis not excluded. No evidence of intraluminal urinary bladder calculi. REPRODUCTIVE: Previously noted increased vascularity surrounding the uterus (suspected pelvic congestion syndrome) is not appreciated on this study due to the lack of intravenous contrast material. APPENDIX: Normal appendix BOWEL: Evaluation of the bowel slightly limited due to incomplete opacification. To the stomach is incompletely distended which presumably accounts for slight thick-walled appearance. No evidence of acute mechanical small bowel obstruction. Few minimally distended loops of small bowel left mid to upper abdomen nonspecific. Oral contrast material has extended into the colon to the level of the splenic flexure. PERITONEUM: Unremarkable. No fluid collection. No free air. LYMPH NODES: Unremarkable. No enlarged lymph nodes. VASCULATURE: Unremarkable. No aortic aneurysm. BONES: No fracture or destructive lesion. OTHER FINDINGS: None. IMPRESSION: Limited study due to the lack of a circulating intravenous contrast material. No evidence of acute mechanical small bowel obstruction with oral contrast extending into the colon. Few loops of minimally distended small bowel left mid upper abdomen nonspecific. Stable appearing 5.3 mm nodule left lung base unchanged. Minimal bladder wall thickening likely due to incomplete distention however cystitis not excluded. Findings suggesting pelvic congestion syndrome on prior examination is not appreciated on this study due to the lack of circulating intravenous contrast material.
--- NOTE | 2016-10-18 16:55 | PN ---
DATE: 10/18/2016 HISTORY OF PRESENT ILLNESS: Seen and examined earlier today. She just completed oral contrast. She had an enema last night and was reported to have at least 4 bowel movements. They were small No reports of any bleeding. She is passing flatus. No reports of nausea or vomiting. VITAL SIGNS: Temperature is 98.4, blood pressure 100/60, pulse 60, respirations 20, 97% on room air. LABORATORY DATA: WBC 5.0, H and H is 12.1 and 36.6, platelets of 130. Sodium 139, K is 3.9, BUN is 12, creatinine is 0.8. LFTs are within normal limits. CT scan of abdomen and pelvis with oral contrast shows no evidence of acute mechanical small-bowel obstruction. A few minimally distended loops of the small bowel, left mid to upper abdomen, nonspecific. Stable appearing 5.3 mm nodule in the left lung base, unchanged. Minimal bladder wall thickening likely due to incomplete distention; however, is not excluded. Findings suggesting pelvic congestion syndrome on prior exam is not appreciated on this study due to lack of circulating IV contrast material. PHYSICAL EXAMINATION: HEENT: Sclerae anicteric. NECK: Supple. CARDIAC: S1, S2. LUNGS: Decreased breath sounds but good air entry. ABDOMEN: With bowel sounds, soft, nondistended, nontender on exam. EXTREMITIES: No edema. NEUROLOGIC: Awake, alert, and oriented. ASSESSMENT: This is a 51-year-old female with history of chronic obstructive pulmonary disease, herniated disk, history of opiate abuse and pelvic congestion , who comes in with complaints of abdominal pain that may be secondary to opioid -induced constipation. The patient had enemas and laxatives. She went for CT scan with oral contrast, which did not show any mechanical obstruction. History of anxiety. PLAN: Continue diet as tolerated. Continue the MiraLax b.i.d. On DVT prophylaxis. The patient is going to be discharged home. The patient has been advised to taper off opiates. The patient will follow up with her PMD, Dr. Clark, and she states that she is awaiting approval for [facility]. The patient was seen and case discussed with Dr. Pedraza. Treasure RENEE cc: [id number] TT: 10/18/2016 16:54:58 Confirmation # [id number] Dictation # [id number] ln MTDD
--- NOTE | 2016-10-19 07:46 | PN ---
DATE: 10/18/2016 This patient was seen and evaluated earlier today. The patient had a repeat CAT scan with oral contrast which showed no obstruction, and patient has been moving bowel. The patient can be followed up as an outpatient with a collections rep for further workup. He has history of chronic constipation, history of narcotic dependence for chronic pain medication. Discussed with Dr. Hines. Thank you for allowing us to participate in the care of the patient. Tomeka Pedraza MD cc: [id number] TT: 10/19/2016 07:45:27 Confirmation # [id number] Dictation # [id number] truman PIKE
--- NOTE | 2016-10-19 16:14 | CP.PCM.DIS ---
<Carlito Stephens - Last Filed: 10/19/16 16:04> Provider - Provider Date of Admission: 10/16/16 19:19 Attending physician: Vicki Hines MD Consults: GI, Surgery Time Spent in preparation of Discharge (in minutes): 45 Hospital Course - Lab Results Lab Results: Most Recent Lab Values WBC 5.0 10^3/ul (4.5-11.0) 10/18/16 06:30 RBC 3.95 10^6/uL (3.5-6.1) 10/18/16 06:30 Hgb 12.1 gm/dL (12.0-16.0) 10/18/16 06:30 Hct 36.6 % (36.0-48.0) 10/18/16 06:30 MCV 92.7 fL (80.0-105.0) 10/18/16 06:30 MCH 30.6 pg (25.0-35.0) 10/18/16 06:30 MCHC 33.1 g/dl (31.0-37.0) 10/18/16 06:30 RDW 13.2 % (11.5-14.5) 10/18/16 06:30 Plt Count 130 10^3/uL (120.0-450.0) 10/18/16 06:30 MPV 12.7 fl (7.0-11.0) H 10/18/16 06:30 Gran % 42.1 % (50.0-68.0) L 10/18/16 06:30 Lymph % (Auto) 46.5 % (22.0-35.0) H 10/18/16 06:30 Jackson % (Auto) 7.2 % (1.0-6.0) H 10/18/16 06:30 Eos % (Auto) 3.0 % (1.5-5.0) 10/18/16 06:30 Baso % (Auto) 1.2 % (0.0-3.0) 10/18/16 06:30 Gran # 2.11 (1.4-6.5) 10/18/16 06:30 Lymph # 2.3 (1.2-3.4) 10/18/16 06:30 Jackson # 0.4 (0.1-0.6) 10/18/16 06:30 Eos # 0.2 (0.0-0.7) 10/18/16 06:30 Baso # 0.06 K/mm3 (0.0-2.0) 10/18/16 06:30 PT 12.7 Seconds (9.9-11.8) H 10/16/16 16:35 INR 1.18 (0.93-1.08) H 10/16/16 16:35 APTT 26.1 Seconds (23.7-30.8) 10/16/16 16:35 Sodium 139 mmol/L (132-148) 10/18/16 06:30 Potassium 3.9 mmol/L (3.6-5.0) 10/18/16 06:30 Chloride 103 mmol/L (95-110) 10/18/16 06:30 Carbon Dioxide 28 mmol/L (21-33) 10/18/16 06:30 Anion Gap 12 (10-20) 10/18/16 06:30 BUN 12 mg/dL (7-21) 10/18/16 06:30 Creatinine 0.8 mg/dL (0.5-1.4) 10/18/16 06:30 Est GFR ( Amer) > 60 10/18/16 06:30 Est GFR (Non-Af Amer) > 60 10/18/16 06:30 Random Glucose 85 mg/dL (70-110) 10/18/16 06:30 Lactic Acid 0.9 mmol/L (0.7-2.1) 10/16/16 16:00 Calcium 9.2 mg/dL (8.4-10.5) 10/18/16 06:30 Total Bilirubin 0.5 mg/dL (0.2-1.3) 10/18/16 06:30 AST 27 U/L (15-39) 10/18/16 06:30 ALT 30 U/L (7-56) 10/18/16 06:30 Alkaline Phosphatase 74 U/L (38-133) 10/18/16 06:30 Lactate Dehydrogenase 299 U/L (333-699) L 10/16/16 16:35 Total Creatine Kinase 51 U/L (35-230) 10/16/16 16:35 Troponin I < 0.01 ng/mL 10/16/16 16:35 Total Protein 6.9 g/dL (5.8-8.3) 10/18/16 06:30 Albumin 3.7 g/dL (3.0-4.8) 10/18/16 06:30 Globulin 3.2 gm/dL 10/18/16 06:30 Albumin/Globulin Ratio 1.2 (1.1-1.8) 10/18/16 06:30 Amylase 90 U/L (35-125) 10/16/16 16:35 Lipase 61 U/L (23-300) 10/16/16 16:35 Urine Color Yellow (YELLOW) 10/16/16 16:35 Urine Appearance Clear (CLEAR) 10/16/16 16:35 Urine pH 7.0 (4.7-8.0) 10/16/16 16:35 Ur Specific [place] 1.010 (1.005-1.035) 10/16/16 16:35 Urine Protein Negative mg/dL (<30 mg/dL) 10/16/16 16:35 Urine Glucose (UA) Negative mg/dL (NEGATIVE) 10/16/16 16:35 Urine Ketones Negative mg/dL (NEGATIVE) 10/16/16 16:35 Urine Blood Negative (NEGATIVE) 10/16/16 16:35 Urine Nitrate Negative (NEGATIVE) 10/16/16 16:35 Urine Bilirubin Negative (NEGATIVE) 10/16/16 16:35 Urine Urobilinogen 0.2 E.U./dL (<1 E.U./dL) 10/16/16 16:35 Ur Leukocyte Esterase Negative Victorino/uL (NEGATIVE) 10/16/16 16:35 - Hospital Course Hospital Course: Discharge date: 10/18/2016 51F w/PMH sig for COPD, anxiety, chronic constipation, opiate abuse/dependence, neuropathy, herniated disc admitted for abdominal pain x 4 days. In the ED basic lab work was done. Pt was made NPO. CT showed possible ileus versus small bowel obstruction secondary to chronic opiate use. Pt was admitted to the floor with Abdominal pain likely 2/2 chronic opiate use. Gastroenterology and surgery were consulted. Surgery team rec no surgical intervention at this time. GI team recommended doing another CT with PO contrast which was negative for any obstruction. 1 dose of Relistor was administered for opiod induced constipation. GI team rec follow up as outpatient for further work up. An enema was given and she had a bowel movement. Pt stated that her abdominal pain was much better. No complaints at this time. Pt was educated regarding reducing her opiod use for her chronic pain and that it was the most likely source of her constipation. Pt showed understanding of the severity of the condition. DX: Abdominal pain and constipation 2/2 chronic opiate use Discharge Exam - Head Exam Head Exam: ATRAUMATIC, NORMAL INSPECTION, NORMOCEPHALIC - Eye Exam Eye Exam: EOMI, Normal appearance, PERRL - ENT Exam ENT Exam: Mucous Membranes Moist - Respiratory Exam Respiratory Exam: Clear to PA & Lateral. absent: Rales, Wheezes - Cardiovascular Exam Cardiovascular Exam: REGULAR RHYTHM, RRR, +S1, +S2 - GI/Abdominal Exam GI & Abdominal Exam: Normal Bowel Sounds, Soft. absent: Tenderness - Neurological Exam Neurological exam: Alert, Oriented x3 - Psychiatric Exam Psychiatric exam: Normal Affect, Normal Mood - Skin Skin Exam: Dry, Intact, Normal Color, Warm Discharge Plan - Discharge Medications Prescriptions: Polyethylene Glycol 3350 [Miralax] 17 gm PO BID #20 powd.pack - Follow Up Plan Condition: FAIR Disposition: HOME/ ROUTINE Instructions: Constipation (GEN), Pneumococcal Vaccine for Adults (DC), High Fiber Diet (GEN), Depression (DC), Acute Abdominal Pain (DC), Acute Abdominal Pain (GEN) Additional Instructions: 1. Follow up with PMd DR. Clark in 3 days. 2. Avoid opiate. 3. Taper and discontinue opiate. 4. Follow up with GI DR. Guerrier. 5. Continue miralax. Clinical Quality Measures - Date & Time of Discharge Summary Date of Discharge Summary: 10/18/16 <Vicki Hines - Last Filed: 10/19/16 16:25> Provider - Provider Date of Admission: 10/16/16 19:19 Attending physician: Vicki Hines MD Hospital Course - Lab Results Lab Results: Most Recent Lab Values WBC 5.0 10^3/ul (4.5-11.0) 10/18/16 06:30 RBC 3.95 10^6/uL (3.5-6.1) 10/18/16 06:30 Hgb 12.1 gm/dL (12.0-16.0) 10/18/16 06:30 Hct 36.6 % (36.0-48.0) 10/18/16 06:30 MCV 92.7 fL (80.0-105.0) 10/18/16 06:30 MCH 30.6 pg (25.0-35.0) 10/18/16 06:30 MCHC 33.1 g/dl (31.0-37.0) 10/18/16 06:30 RDW 13.2 % (11.5-14.5) 10/18/16 06:30 Plt Count 130 10^3/uL (120.0-450.0) 10/18/16 06:30 MPV 12.7 fl (7.0-11.0) H 10/18/16 06:30 Gran % 42.1 % (50.0-68.0) L 10/18/16 06:30 Lymph % (Auto) 46.5 % (22.0-35.0) H 10/18/16 06:30 Jackson % (Auto) 7.2 % (1.0-6.0) H 10/18/16 06:30 Eos % (Auto) 3.0 % (1.5-5.0) 10/18/16 06:30 Baso % (Auto) 1.2 % (0.0-3.0) 10/18/16 06:30 Gran # 2.11 (1.4-6.5) 10/18/16 06:30 Lymph # 2.3 (1.2-3.4) 10/18/16 06:30 Jackson # 0.4 (0.1-0.6) 10/18/16 06:30 Eos # 0.2 (0.0-0.7) 10/18/16 06:30 Baso # 0.06 K/mm3 (0.0-2.0) 10/18/16 06:30 PT 12.7 Seconds (9.9-11.8) H 10/16/16 16:35 INR 1.18 (0.93-1.08) H 10/16/16 16:35 APTT 26.1 Seconds (23.7-30.8) 10/16/16 16:35 Sodium 139 mmol/L (132-148) 10/18/16 06:30 Potassium 3.9 mmol/L (3.6-5.0) 10/18/16 06:30 Chloride 103 mmol/L (95-110) 10/18/16 06:30 Carbon Dioxide 28 mmol/L (21-33) 10/18/16 06:30 Anion Gap 12 (10-20) 10/18/16 06:30 BUN 12 mg/dL (7-21) 10/18/16 06:30 Creatinine 0.8 mg/dL (0.5-1.4) 10/18/16 06:30 Est GFR ( Amer) > 60 10/18/16 06:30 Est GFR (Non-Af Amer) > 60 10/18/16 06:30 Random Glucose 85 mg/dL (70-110) 10/18/16 06:30 Lactic Acid 0.9 mmol/L (0.7-2.1) 10/16/16 16:00 Calcium 9.2 mg/dL (8.4-10.5) 10/18/16 06:30 Total Bilirubin 0.5 mg/dL (0.2-1.3) 10/18/16 06:30 AST 27 U/L (15-39) 10/18/16 06:30 ALT 30 U/L (7-56) 10/18/16 06:30 Alkaline Phosphatase 74 U/L (38-133) 10/18/16 06:30 Lactate Dehydrogenase 299 U/L (333-699) L 10/16/16 16:35 Total Creatine Kinase 51 U/L (35-230) 10/16/16 16:35 Troponin I < 0.01 ng/mL 10/16/16 16:35 Total Protein 6.9 g/dL (5.8-8.3) 10/18/16 06:30 Albumin 3.7 g/dL (3.0-4.8) 10/18/16 06:30 Globulin 3.2 gm/dL 10/18/16 06:30 Albumin/Globulin Ratio 1.2 (1.1-1.8) 10/18/16 06:30 Amylase 90 U/L (35-125) 10/16/16 16:35 Lipase 61 U/L (23-300) 10/16/16 16:35 Urine Color Yellow (YELLOW) 10/16/16 16:35 Urine Appearance Clear (CLEAR) 10/16/16 16:35 Urine pH 7.0 (4.7-8.0) 10/16/16 16:35 Ur Specific [place] 1.010 (1.005-1.035) 10/16/16 16:35 Urine Protein Negative mg/dL (<30 mg/dL) 10/16/16 16:35 Urine Glucose (UA) Negative mg/dL (NEGATIVE) 10/16/16 16:35 Urine Ketones Negative mg/dL (NEGATIVE) 10/16/16 16:35 Urine Blood Negative (NEGATIVE) 10/16/16 16:35 Urine Nitrate Negative (NEGATIVE) 10/16/16 16:35 Urine Bilirubin Negative (NEGATIVE) 10/16/16 16:35 Urine Urobilinogen 0.2 E.U./dL (<1 E.U./dL) 10/16/16 16:35 Ur Leukocyte Esterase Negative Victorino/uL (NEGATIVE) 10/16/16 16:35 Attending/Attestation - Attestation I have personally seen and examined this patient.: Yes I have fully participated in the care of the patient.: Yes I have reviewed all pertinent clinical information, including history, physical exam and plan: Yes Notes (Text): 10/19/16 16:23 Attending note: patient seen and examined with resident. patient is a 51-year-old female with a history of chronic opiate dependency, back pain, chronic pelvic pain is admitted with constipation. CT showed possible ileus versus small bowel obstruction secondary to chronic opiate use. Case discussed with Surgery in detail. started on clear liquid diet and advanced to soft diet. Enema given. Had BM. Case discussed with GI Dr. Pedraza in detail. CT abdomen and pelvis with po contrast did not show any bowel obstruction. Showed local ileus. CT reviewed with GI and surgery. Discharge home today. Patient is strongly advised to taper and DC opiates. Patient is not willing to decrease the dose or discontinue opiates. Patient states that she is approved for [facility] as outpatient. Upon discharge the patient will follow-up with PMD . Diagnosis; Opiate-induced constipation Ileus Anxiety depression
== END 2016-10-18 18:38 | disposition home or self-care (01) ==
LOC: ED 15:02 → ERH 19:19 → 5RNO 21:17 → INTOOBSV 10-17 12:35 → OBSVTOIN 10-17 12:35
PROVIDERS: ADMIT Internal Medicine; ATTEND Internal Medicine
DX: K59.03 Drug induced constipation (principal); T40.2X5A Adverse effect of other opioids, initial encounter; K56.7 Ileus, unspecified; F41.8 Other specified anxiety disorders; G89.29 Other chronic pain; M54.9 Dorsalgia, unspecified; J44.9 Chronic obstructive pulmonary disease, unspecified; M41.9 Scoliosis, unspecified; Z79.891 Long term (current) use of opiate analgesic; F17.210 Nicotine dependence, cigarettes, uncomplicated; Z90.49 Acquired absence of other specified parts of digestive tract; Z98.51 Tubal ligation status; Z88.0 Allergy status to penicillin; Z88.8 Allergy status to other drugs, medicaments and biological substances; R91.1 Solitary pulmonary nodule; J98.11 Atelectasis; G62.9 Polyneuropathy, unspecified; M54.30 Sciatica, unspecified side; N94.89 Other specified conditions associated with female genital organs and menstrual cycle; F32.89 Other specified depressive episodes; Z86.19 Personal history of other infectious and parasitic diseases
CPT/HCPCS: 36415; 71010; 74176; 74177; 80053; 81003; 82150; 82550; 83605; 83615; 83690; 84484; 85025; 85610; 85730; 93005; 94640; 96361; 96372; 96374; 96375; 99285; G0378; J1650; J2212; J2405; J2930; J7040; J7042; Q9967

== ENCOUNTER 2016-10-23 14:56 | Emergency (ER) | payer MEDICAID ==
[2016-10-23 14:56] VITALS: BMI 18.8
[2016-10-23 15:13] VITALS: TEMP 98.4
[2016-10-23] MEDS ORDERED: Sodium Chloride 0.9% 1,000 ML IV STA (15:24)
--- NOTE | 2016-10-23 15:31 | ED PDOC ---
Arrival/HPI - General Chief Complaint: Abdominal Pain Time Seen by Provider: 10/23/16 15:13 Historian: Patient - History of Present Illness Narrative History of Present Illness (Text): 10/23/16 15:30 51 year old female, well known to the ER with multiple visits for abdominal pain , whose past medical history includes COPD, anxiety, chronic constipation, opiate abuse/dependence, presents to the emergency department with intermittent diffuse abdominal pain since this morning. Patient also reports some constipation. Patient requesting chronic pain medication on arrival to er. pt advised of [facility] narcotic policy. no fevers, (+)nausea no vomiting, no hematochezia, melena no other complaints. 10/23/16 21:22 Time/Duration: 24 hours Symptom Onset: Gradual Symptom Course: Unchanged Modifying Factors (Text): None Associated Symptoms (Text): None Past Medical History - Provider Review Nursing Documentation Reviewed: Yes - Infectious Disease Hx of Infectious Diseases: None - Tetanus Immunization Tetanus Immunization: Unknown - Reproductive Menopause: Yes - Cardiac Hx Cardiac Disorders: No Other/Comment: Sepsis last admission about 3 weeks ago. - Pulmonary Hx Respiratory Disorders: Yes (SMOKES PPD QUIT) Hx Chronic Obstructive Pulmonary Disease (COPD): Yes - Neurological Hx Neurological Disorder: No - HEENT Hx HEENT Disorder: Yes (eyeglasses) - Renal Hx Renal Disorder: No - Endocrine/Metabolic Hx Endocrine Disorders: No - Hematological/Oncological Hx Blood Disorders: No - Integumentary Hx Dermatological Disorder: Yes (TATTOOS) Other/Comment: multiple skin discolorations ble - Musculoskeletal/Rheumatological Hx Falls: No - Gastrointestinal Hx Gastrointestinal Disorders: Yes (CONSTIPATION) - Genitourinary/Gynecological Hx Genitourinary Disorders: Yes (OVARIAN CYSTECTOMY X 2.) - Psychiatric Hx Psychophysiologic Disorder: Yes Hx Anxiety: Yes Hx Depression: Yes Hx Substance Use: No - Surgical History Hx Appendectomy: (pt denies) Hx Tubal Ligation: Yes Other/Comment: MYOMECTOMY, uterine fibroid sx,ovarian cystectomy x2, cyst removed from behind r knee, tubal ligation, d&c - Anesthesia Hx Anesthesia: Yes Hx Anesthesia Reactions: No Hx Malignant Hyperthermia: No - Suicidal Assessment Feels Threatened In Home Enviroment: No Family/Social History - Physician Review Nursing Documentation Reviewed: Yes Family/Social History: Unknown Family HX Smoking Status: Heavy Smoker > 10 Cigarettes Daily Hx Alcohol Use: Yes (alcohol x 5 yrs) Frequency of alcohol use: Daily Hx Substance Use: No Hx Substance Use Treatment: No Allergies/Home Meds Allergies/Adverse Reactions: Allergies hydroxyzine Allergy (Severe, Verified 10/16/16 15:28) FATIGUE hydroxyzine HCl [From Atarax] Allergy (Verified 10/16/16 15:28) FATIGUE Penicillins Allergy (Verified 10/16/16 15:28) RASH Home Medications: Home Meds Medication Instructions Recorded Confirmed Oxycodone HCl [Oxycontin] 80 mg PO BID 02/04/16 10/23/16 oxyCODONE [oxyCODONE Immediate 30 mg PO BID PRN 02/04/16 10/23/16 Release Tab] Alprazolam [Xanax] 2 mg PO BID PRN 08/26/16 10/23/16 Naloxegol Oxalate [Movantik] 1 tab PO DAILY 10/23/16 10/23/16 Review of Systems - Physician Review All systems were reviewed & negative as marked: Yes - Review of Systems Respiratory: absent: SOB Cardiovascular: absent: Chest Pain Gastrointestinal: Abdominal Pain, Constipation. absent: Vomiting Neurological: absent: Headache, Dizziness Physical Exam Vital Signs Reviewed: Yes Vital Signs Temp Pulse Resp BP Pulse Ox 10/23/16 17:39 80 16 110/82 97 10/23/16 15:08 98.4 F 84 20 107/76 98 Temperature: Afebrile Blood Pressure: Normal Pulse: Regular Respiratory Rate: Normal Appearance: Positive for: Well-Appearing, Non-Toxic, Comfortable Pain Distress: None Mental Status: Positive for: Alert and Oriented X 3 - Systems Exam Head: Present: Atraumatic, Normocephalic Pupils: Present: PERRL Extroacular Muscles: Present: EOMI Conjunctiva: Present: Normal Mouth: Present: Moist Mucous Membranes Neck: Present: Normal Range of Motion Respiratory/Chest: Present: Clear to Auscultation, Good Air Exchange. No: Respiratory Distress, Accessory Muscle Use Cardiovascular: Present: Regular Rate and Rhythm, Normal S1, S2. No: Murmurs Abdomen: Present: Tenderness (Mild nonfocal ), Normal Bowel Sounds. No: Distention, Peritoneal Signs Back: Present: Normal Inspection Upper Extremity: Present: Normal Inspection. No: Cyanosis, Edema Lower Extremity: Present: Normal Inspection. No: Edema Neurological: Present: GCS=15, CN II-XII Intact, Speech Normal Skin: Present: Warm, Dry, Normal Color. No: Rashes Psychiatric: Present: Alert, Oriented x 3, Normal Insight, Normal Concentration Medical Decision Making ED Course and Treatment: Impression: 51 year old female, well known to the ER with multiple visits for abdominal pain, whose past medical history includes COPD, anxiety, chronic constipation, opiate abuse/dependence, presents to the emergency department with intermittent diffuse abdominal pain since this morning. Differential Diagnosis include but are not limited to: ro colitis obstruction vs constipation. pt Plan: -- Toradol, Zofran -- Labs -- Reassess and disposition Prior Visits: Notes and results from previous visits were reviewed. Patient last seen in ED on 10/16/16 for abdominal pain and admitted for partial small bowel obstruction. Progress Notes: pt persistently requesting narcotic pain medication. review of [place] [facility] shows multiple rx for narcotic medication, most recently filled less than 30 days ago. pt later observed on cell phone in [facility]. EXAM: CT Abdomen and Pelvis With Intravenous Contrast IMPRESSION: No acute solid visceral abnormality; no bowel obstruction; nonspecific 3.9 mm left lower lobe nodule seen on prior studies Additional findings as described above. Footer: As per Fleischner Society guidelines for follow-up and management of pulmonary nodules: For patients at low risk (minimal or absent history of smoking and of other known risk factors), no follow-up needed. For patient at high risk (history of smoking or of other known risk factors), recommend follow-up chest CT at 12 months; if unchanged, no further follow-up needed. Dictated and Authenticated by: Sury Rojo MD 10/23/2016 6:08 PM Eastern Time ([place] & [place]) 10/23/16 20:09 pt notified of incidental findings - Lab Interpretations Lab Results: 10/23/16 15:35 10/23/16 15:35 Lab Results 10/23/16 15:35: Sodium 138, Potassium 3.8, Chloride 102, Carbon Dioxide 25, Anion Gap 15, BUN 10, Creatinine 0.8, Est GFR ( Amer) > 60, Est GFR (Non- Af Amer) > 60, Random Glucose 80, Calcium 9.5, Total Bilirubin 0.6, AST 22, ALT 26, Alkaline Phosphatase 92, Total Protein 8.0, Albumin 4.2, Globulin 3.8, Albumin/Globulin Ratio 1.1, Lipase 52 10/23/16 15:35: PT 12.1 H, INR 1.12 H, APTT 26.6 10/23/16 15:35: WBC 6.5 D, RBC 4.68, Hgb 14.7, Hct 42.7, MCV 91.2, MCH 31.4, MCHC 34.4, RDW 12.9, Plt Count 174, MPV 13.4 H, Gran % 57.4, Lymph % (Auto) 34.0 , [place] % (Auto) 4.6, Eos % (Auto) 3.2, Baso % (Auto) 0.8, Gran # 3.73, Lymph # 2.2, [place] # 0.3, Eos # 0.2, Baso # 0.05 - RAD Interpretation Radiology Orders: 10/23/16 17:06 ABD & PELVIS IV CONTRAST ONLY [CT] Stat Licensed Mortician: Radiologist - Medication Orders Current Medication Orders: Discontinued Medications Acetaminophen (Tylenol 325mg Tab) 650 mg PO STAT STA Stop: 10/23/16 17:44 Last Admin: 10/23/16 17:53 Dose: 650 mg Sodium Chloride (Sodium Chloride 0.9%) 1,000 mls @ 1,000 mls/hr IV .Q1H STA Stop: 10/23/16 16:23 Last Admin: 10/23/16 15:40 Dose: 1,000 mls/hr Iohexol (Omnipaque 350 100 Ml) Confirm Administered Dose 350 mg .ROUTE .STK-MED ONE Stop: 10/23/16 17:11 Ketorolac Tromethamine (Toradol) 30 mg IVP STAT STA Stop: 10/23/16 15:25 Last Admin: 10/23/16 15:40 Dose: 30 mg Re-Assess: [facility] Pain Assessment Document 10/23/16 16:40 RR (Rec: 10/23/16 17:23 RR [id number]) Pain Reassessment Is this a pain reassessment? Yes Sleep Is patient sleeping during reassessment? No Presence of Pain Presence of Pain Yes Pain Scale Used Pain Scale Used Numeric Description Description Constant Pain not relieved and LIP/MD was Yes: dr. ty aware notified Ondansetron HCl (Zofran Inj) 4 mg IVP STAT STA Stop: 10/23/16 15:25 Last Admin: 10/23/16 15:40 Dose: 4 mg - Scribe Statement The provider has reviewed the documentation as recorded by the Jeronimo Snyder Provider Scribe Attestation: All medical record entries made by the oKbyibe were at my direction and personally dictated by me. I have reviewed the chart and agree that the record accurately reflects my personal performance of the history, physical exam, medical decision making, and the department course for this patient. I have also personally directed, reviewed, and agree with the discharge instructions and disposition. Disposition/Present on Arrival - Present on Arrival Any Indicators Present on Arrival: No History of DVT/PE: No History of Uncontrolled Diabetes: No Urinary Catheter: No History of Decub. Ulcer: No History Surgical Site Infection Following: None - Disposition Have Diagnosis and Disposition been Completed?: Yes Diagnosis: Abdominal pain Disposition: HOME/ ROUTINE Disposition Time: 07:00 Condition: STABLE Discharge Instructions (ExitCare): Constipation (ED), Acute Abdominal Pain (ED) Additional Instructions: please follow up with your doctor. return to er with worsening symptoms or concerns. Prescriptions: Polyethylene Glycol 3350 [Miralax] 17 gm PO DAILY PRN #4 ml PRN Reason: Constipation Referrals: Fareed GUIDO,MD Derian [Medical Doctor] - Follow up with primary
[2016-10-23 16:32] LABS: ADD MANUAL DIFF? NO
[2016-10-23 16:44] LABS: BASO # 0.05 K/mm3 (0.0-2.0); BASO % 0.8 % (0.0-3.0); EOS # 0.2 (0.0-0.7); EOS % 3.2 % (1.5-5.0); GRAN # 3.73 (1.4-6.5); GRAN % 57.4 % (50.0-68.0); HEMATOCRIT 42.7 % (36.0-48.0); LYMPH # 2.2 (1.2-3.4); MEAN CELL VOLUME 91.2 fL (80.0-105.0); MEAN CORPUSCULAR HEMOGLOBIN 31.4 pg (25.0-35.0); MEAN CORPUSCULAR HGB CONC 34.4 g/dl (31.0-37.0); MEAN PLATELET VOLUME 13.4 fl (7.0-11.0); MONO # 0.3 (0.1-0.6); MONO % 4.6 % (1.0-6.0); PLATELET COUNT 174 10^3/uL (120.0-450.0); RED CELL DISTRIBUTION WIDTH 12.9 % (11.5-14.5); WHITE BLOOD COUNT 6.5 10^3/ul (4.5-11.0)
[2016-10-23 16:54] LABS: ALB/GLOB RATIO 1.1 (1.1-1.8); ALKALINE PHOSPHATASE 92 U/L (38-133); ALT/SGPT 26 U/L (7-56); AST/SGOT 22 U/L (15-39); BILIRUBIN,TOTAL 0.6 mg/dL (0.2-1.3); BLOOD UREA NITROGEN 10 mg/dL (7-21); CALCIUM 9.5 mg/dL (8.4-10.5); CARBON DIOXIDE 25 mmol/L (21-33); CHLORIDE 102 mmol/L (98-107); GFR AFRICAN-AMERICAN > 60; GLUCOSE,RANDOM 80 mg/dL (70-110); LIPASE 52 U/L (23-300); POTASSIUM 3.8 mmol/L (3.6-5.0); SODIUM 138 mmol/L (132-148)
[2016-10-23 16:58] LABS: INR 1.12 (0.93-1.08); PARTIAL THROMBOPLASTIN TIME 26.6 Seconds (23.7-30.8)
[2016-10-23] MEDS ORDERED: Iohexol 350 MG/100 ML VIAL ONE (17:10)
[2016-10-23 17:40] VITALS: BP 110/82; PULSE 80; RESP 16; O2SAT 97
--- NOTE | 2016-10-23 18:08 | CT ---
EXAM: CT Abdomen and Pelvis With Intravenous Contrast CLINICAL HISTORY: 51 years old, female; Pain; Abdominal pain; Acute; Additional info: Abd pain TECHNIQUE: Axial computed tomography images of the abdomen and pelvis with intravenous contrast. This CT exam was performed using one or more of the following dose reduction techniques: automated exposure control, adjustment of the mA and/or kV according to patient size, and/or use of iterative reconstruction technique. Coronal and sagittal reformatted images were created and reviewed. CONTRAST: 100 mL of omni 350 administered intravenously. EXAM DATE/TIME: 10/23/2016 5:06 PM COMPARISON: CT - ABD PELVIS PO CONTRAST ONLY 10/18/2016 12:53:28 PM FINDINGS: Lower thorax: Heart size is normal. Lung bases are clear. There is minimal scarring and pleural thickening at the lung bases. There is a 3.9 mm pleural-based left lower lobe nodule. ABDOMEN: Liver: There is fatty infiltration of the liver. Gallbladder and bile ducts: unremarkable Pancreas: Pancreas is mildly atrophic. Spleen: unremarkable Adrenals: unremarkable Kidneys and ureters: unremarkable Stomach and bowel: Stomach is almost empty. Rotation is normal. There is no obstruction. Terminal ileum is unremarkable. Appendix is unremarkable.Colon is incompletely distended which limits evaluation. Appendix: See above. PELVIS: Bladder: unremarkable Reproductive: Uterus and adnexal structures are unremarkable. ABDOMEN and PELVIS: Intraperitoneal space: No air-fluid Bones/joints: There are degenerative changes in the osseus structures. Soft tissues: unremarkable Vasculature: There are vascular calcifications. Lymph nodes: There is no pathologic adenopathy. Other findings: Pelvic varices left greater than right. IMPRESSION: No acute solid visceral abnormality; no bowel obstruction; nonspecific 3.9 mm left lower lobe nodule seen on prior studies Additional findings as described above. Footer: As per Fleischner Society guidelines for follow-up and management of pulmonary nodules: For patients at low risk (minimal or absent history of smoking and of other known risk factors), no follow-up needed. For patient at high risk (history of smoking or of other known risk factors), recommend follow-up chest CT at 12 months; if unchanged, no further follow-up needed.
== END 2016-10-23 18:30 | disposition home or self-care (01) ==
LOC: ED 14:56
DX: R10.9 Unspecified abdominal pain (principal)
CPT/HCPCS: 74177; 80053; 83690; 85025; 85610; 85730; 96361; 96374; 96375; 99283; J1885; J2405; J7040; Q9967

== ENCOUNTER 2016-11-12 23:14 | Emergency (ER) | payer MEDICAID ==
[2016-11-12 23:29] VITALS: BMI 18.9
[2016-11-12 23:42] VITALS: TEMP 98
[2016-11-12 23:43] VITALS: RESP 14
[2016-11-13] MEDS: Albuterol-Ipratrop 3 mg / 0.5 (3 ml) UD IH SCH ×3 (00:01→00:30)
[2016-11-13 00:36] LABS: ADD MANUAL DIFF? NO
[2016-11-13 00:39] LABS: BASO # 0.04 K/mm3 (0.0-2.0); BASO % 0.7 % (0.0-3.0); EOS # 0.1 (0.0-0.7); EOS % 1.8 % (1.5-5.0); GRAN # 3.91 (1.4-6.5); GRAN % 63.5 % (50.0-68.0); HEMATOCRIT 39.2 % (36.0-48.0); LYMPH # 1.7 (1.2-3.4); MEAN CELL VOLUME 93.1 fL (80.0-105.0); MEAN CORPUSCULAR HEMOGLOBIN 31.8 pg (25.0-35.0); MEAN CORPUSCULAR HGB CONC 34.2 g/dl (31.0-37.0); MEAN PLATELET VOLUME 12.5 fl (7.0-11.0); MONO # 0.4 (0.1-0.6); PLATELET COUNT 133 10^3/uL (120.0-450.0); RED CELL DISTRIBUTION WIDTH 12.6 % (11.5-14.5); WHITE BLOOD COUNT 6.2 10^3/ul (4.5-11.0)
[2016-11-13 00:48] LABS: ALB/GLOB RATIO 1.2 (1.1-1.8); ALKALINE PHOSPHATASE 92 U/L (38-133); ALT/SGPT 21 U/L (7-56); AST/SGOT 27 U/L (15-39); BILIRUBIN,TOTAL 0.6 mg/dL (0.2-1.3); BLOOD UREA NITROGEN 8 mg/dL (7-21); CALCIUM 9.1 mg/dL (8.4-10.5); CARBON DIOXIDE 28 mmol/L (21-33); CHLORIDE 102 mmol/L (98-107); GFR AFRICAN-AMERICAN > 60; GLUCOSE,RANDOM 90 mg/dL (70-110); SODIUM 138 mmol/L (132-148); TOTAL PROTEIN 7.2 g/dL (5.8-8.3)
[2016-11-13 00:49] LABS: POTASSIUM 3.9 mmol/L (3.6-5.0)
[2016-11-13 01:01] LABS: INR 1.12 (0.93-1.08); PARTIAL THROMBOPLASTIN TIME 26.6 Seconds (23.7-30.8)
--- NOTE | 2016-11-13 02:46 | ED PDOC ---
Arrival/HPI - General Chief Complaint: Shortness Of Breath Time Seen by Provider: 11/12/16 23:29 Historian: Patient - History of Present Illness Narrative History of Present Illness (Text): 11/13/16 03:03 A 51 year old female, whose past medical history includes COPD, smoking (on home oxygen), ileus/small bowel obstructions secondary to opiate use, presents to the emergency department complaining of abdominal pain. Patient also reports shortness of breath that feels like previous exacerbating COPD symptoms. Patient notes chronic lower back pain and bilateral knee pain. Patient denies any other complaints at this time. Symptom Onset: Sudden Symptom Course: Unchanged Activities at Onset: Rest Context: Home Past Medical History - Provider Review Nursing Documentation Reviewed: Yes - Infectious Disease Hx of Infectious Diseases: None - Tetanus Immunization Tetanus Immunization: Unknown - Cardiac Hx Cardiac Disorders: No Other/Comment: Sepsis last admission about 3 weeks ago. - Pulmonary Hx Respiratory Disorders: Yes (SMOKES PPD QUIT) Hx Chronic Obstructive Pulmonary Disease (COPD): Yes - Neurological Hx Neurological Disorder: No - HEENT Hx HEENT Disorder: Yes (eyeglasses) - Renal Hx Renal Disorder: No - Endocrine/Metabolic Hx Endocrine Disorders: No - Hematological/Oncological Hx Blood Disorders: No - Integumentary Hx Dermatological Disorder: Yes (TATTOOS) Other/Comment: multiple skin discolorations ble - Musculoskeletal/Rheumatological Hx Falls: No - Gastrointestinal Hx Gastrointestinal Disorders: Yes (CONSTIPATION) - Genitourinary/Gynecological Hx Genitourinary Disorders: Yes (OVARIAN CYSTECTOMY X 2.) - Psychiatric Hx Psychophysiologic Disorder: Yes Hx Anxiety: Yes Hx Depression: Yes Hx Substance Use: No - Surgical History Hx Appendectomy: (pt denies) Hx Tubal Ligation: Yes Other/Comment: MYOMECTOMY, uterine fibroid sx,ovarian cystectomy x2, cyst removed from behind r knee, tubal ligation, d&c - Anesthesia Hx Anesthesia: Yes Hx Anesthesia Reactions: No Hx Malignant Hyperthermia: No - Suicidal Assessment Feels Threatened In Home Enviroment: No Family/Social History - Physician Review Nursing Documentation Reviewed: Yes Family/Social History: No Known Family HX Smoking Status: Heavy Smoker > 10 Cigarettes Daily Hx Alcohol Use: Yes (alcohol x 5 yrs) Hx Substance Use: No Hx Substance Use Treatment: No Allergies/Home Meds Allergies/Adverse Reactions: Allergies hydroxyzine Allergy (Severe, Verified 10/16/16 15:28) FATIGUE hydroxyzine HCl [From Atarax] Allergy (Verified 10/16/16 15:28) FATIGUE Penicillins Allergy (Verified 10/16/16 15:28) RASH Home Medications: Home Meds Medication Instructions Recorded Confirmed Oxycodone HCl [Oxycontin] 80 mg PO BID 02/04/16 11/13/16 oxyCODONE [oxyCODONE Immediate 30 mg PO BID PRN 02/04/16 11/13/16 Release Tab] Alprazolam 1 mg PO QID 11/13/16 11/13/16 Aspirin [Adult Low Dose Aspirin EC] 81 mg PO DAILY 11/13/16 11/13/16 Pantoprazole [Protonix] 40 mg PO DAILY 11/13/16 11/13/16 Review of Systems - Physician Review All systems were reviewed & negative as marked: Yes Physical Exam - Physical Exam Narrative Physical Exam (Text): 11/13/16 02:46- Review of Systems Constitutional: Normal. absent: Fatigue, Weight Change, Fevers Eyes: Normal ENT: Normal Respiratory: Present: shortness of breath absent: Cough, Sputum Cardiovascular: Normal absent: Chest pain, Palpitations, Syncope Gastrointestinal: Present: abdominal pain absent: Diarrhea, Nausea, Vomiting Genitourinary: Normal. absent: Dysuria, Frequency, Hematuria Musculoskeletal: Present: chronic lower back pain, chronic bilateral knee pain absent: Arthralgias, Neck Pain Skin: Normal Neurological: Normal absent: Focal Weakness Endocrine: Normal Hemo/Lymphatic: Normal Psychiatric: Normal - Physical exam Patient appears age appropriate, speaking full sentences without difficulty - Systems Exam Head: Present: Atraumatic, Normocephalic Pupils: Present: PERRL Extraocular Muscles: Present: EOMI Conjunctiva: Present: Normal Mouth: Present: Moist Mucous Membranes Neck: Present: Normal Range of Motion. No: MIDLINE TENDERNESS, Paraspinal Tenderness Respiratory/Chest: Present: diffuse Rhonchi and expiratory wheezing No: Accessory Muscle Use Cardiovascular: Present: Regular Rate and Rhythm, Normal S1, S2, Peripheral Pulses Present. No: Murmurs Abdomen: Present: Normal Bowel Sounds, No: Tenderness, Peritoneal Signs, Rebound, Guarding, Distention Back: Present: Normal Inspection. No: Midline Tenderness, Paraspinal Tenderness Upper Extremity: Present: Normal Inspection. No: Cyanosis, Edema Lower Extremity: Present: Normal Inspection. No: Edema Neurological: Present: GCS=15, Speech Normal, cranial nerves II through XII fully intact with no cerebellar abnormality, neuro-sensory fully intact. No focal neurological deficits. Skin: Present: Warm, Dry, Normal Color. No: Rashes Lymphatic: Present: OX3, NI, NC Psychiatric: Present: Alert, Oriented x 3, Normal Insight, Normal Concentration Vital Signs Reviewed: Yes Vital Signs Temp Pulse Resp BP Pulse Ox 11/13/16 02:51 89 14 109/61 98 11/12/16 23:41 14 100 11/12/16 23:39 98.0 F 85 18 120/73 100 Temperature: Afebrile Blood Pressure: Normal Pulse: Regular Respiratory Rate: Normal Appearance: Positive for: Well-Appearing, Non-Toxic, Comfortable Pain Distress: None Mental Status: Positive for: Alert and Oriented X 3 Medical Decision Making ED Course and Treatment: 11/13/16 02:44 Impression: A 51 year old female with abdominal pain and shortness of breath. On physical exam, patient has diffuse rhonchi and expiratory wheezing. Differential Diagnosis include but are not limited to: COPD vs. Pneumonia vs. ileus Plan: -- EKG -- CT abd/pelvis -- CT lumbar spine -- chest xray -- labs -- Reassess and disposition Prior Visits: Notes and results from previous visits were reviewed. Patient last reported to the emergency department on 10/23/16 for evaluation of intermittent diffuse abdominal pain. Patient was discharged and advised to follow up with PMD. Progress Notes: On reevaluation, after nebulizer treatment, patient's wheezing resolved. Patient no longer in respiratory distress. Chest xray shows hyperinflation, no cardiomegaly, no pneumothorax, no effusion, no infiltrates. EKG shows NSR at [address]-segment elevations, normal intervals. with no prior for comparison. Interpreted by me. CT Abdomen and Pelvis Without Intravenous Contrast IMPRESSION: No acute findings. Dictated and Authenticated by: Luiz Boudreaux MD 11/13/2016 3:18 AM Eastern Time ([place] & [place]) CT Lumbar Spine Without Intravenous Contrast FINDINGS: Vertebrae: Vertebral body heights are preserved without evidence for compression deformity. No evidence for acute fracture or subluxation. Discs/spinal canal/neural foramina: Mild multilevel disc bulges. These do not lead to high-grade central canal stenosis. Soft tissues: Unremarkable. IMPRESSION: 1. Mild multilevel disc bulges. These do not lead to high-grade central canal stenosis. 2. Vertebral body heights are preserved without evidence for compression deformity. 3. No evidence for acute fracture or subluxation. Dictated and Authenticated by: Luiz Boudreaux MD 11/13/2016 3:19 AM Eastern Time ([place] & [place]) 11/13/16 04:15 On reevaluation, patient reports that she feels much better and would like to be discharged home. Patient's repeat abdominal exam is soft, nontender, non distended with positive bowel sounds in all 4 quadrants and no peritoneal signs. Patient is tolerating PO without any difficulty. Patient's lungs are clear to auscultation bilaterally, patient is in no respiratory distress, and denies any complaints at this time. Patient denies any back pain at this point. Patient's bilateral lower extremities with no paresthesias, distal neurovascular fully intact. Patient states that she feels comfortable being discharged home with outpatient follow-up. Pt states she understands to return to the ER right away for new or worsening symptoms or for inability to f/u with PMD or specialist as instructed. Patient states that she fully agrees with and understands discharge instructions. States that she agrees with the plan and disposition. Verbalized and repeated discharge instructions and plan. I have given the patient opportunity to ask any additional questions. 11/13/16 04:30 Patient asked for a shot of Toradol before she is discharged home in case she has pain overnight again - Lab Interpretations Lab Results: 11/13/16 00:30 11/13/16 00:30 Lab Results 11/13/16 00:30: Sodium 138, Potassium 3.9, Chloride 102, Carbon Dioxide 28, Anion Gap 12, BUN 8, Creatinine 0.7, Est GFR ( Amer) > 60, Est GFR (Non- Af Amer) > 60, Random Glucose 90, Calcium 9.1, Total Bilirubin 0.6, AST 27, ALT 21, Alkaline Phosphatase 92, Total Protein 7.2, Albumin 4.0, Globulin 3.3, Albumin/Globulin Ratio 1.2 11/13/16 00:30: PT 12.1 H, INR 1.12 H, APTT 26.6 11/13/16 00:30: WBC 6.2, RBC 4.21, Hgb 13.4, Hct 39.2, MCV 93.1, MCH 31.8, MCHC 34.2, RDW 12.6, Plt Count 133, MPV 12.5 H, Gran % 63.5, Lymph % (Auto) 28.0, [place] % (Auto) 6.0, Eos % (Auto) 1.8, Baso % (Auto) 0.7, Gran # 3.91, Lymph # 1.7 , Morgan # 0.4, Eos # 0.1, Baso # 0.04 I have reviewed the lab results: Yes - RAD Interpretation Radiology Orders: 11/12/16 23:51 ABD & PELVIS W/O PO OR IV CONT [CT] Stat 11/12/16 23:52 CHEST PORTABLE [RAD] Stat 11/13/16 01:33 LUMBAR SPINE W/O CONTRAST [CT] Stat - EKG Interpretation Interpreted by ED Physician: Yes Type: 12 lead EKG - Medication Orders Current Medication Orders: Discontinued Medications Albuterol/Ipratropium (Duoneb 3 Mg/0.5 Mg (3 Ml) Ud) 3 ml IH Q15M GABY Stop: 11/13/16 00:16 Last Admin: 11/13/16 00:30 Dose: 3 ml Ketorolac Tromethamine (Toradol) 30 mg IVP STAT STA Stop: 11/12/16 23:54 Last Admin: 11/13/16 00:01 Dose: 30 mg Methylprednisolone (Solu-Medrol) 125 mg IVP STAT STA Stop: 11/12/16 23:54 Last Admin: 11/13/16 00:01 Dose: 125 mg - Kobyibe Statement The provider has reviewed the documentation as recorded by the Jeronimo Andrews All medical record entries made by the Jeronimo were at my direction and personally dictated by me. I have reviewed the chart and agree that the record accurately reflects my personal performance of the history, physical exam, medical decision making, and the department course for this patient. I have also personally directed, reviewed, and agree with the discharge instructions and disposition. Disposition/Present on Arrival - Present on Arrival Any Indicators Present on Arrival: No History of DVT/PE: No History of Uncontrolled Diabetes: No Urinary Catheter: No History of Decub. Ulcer: No History Surgical Site Infection Following: None - Disposition Have Diagnosis and Disposition been Completed?: Yes Diagnosis: COPD exacerbation, Chronic back pain, Abdominal pain Disposition: HOME/ ROUTINE Disposition Time: 04:20 Patient Plan: Discharge Patient Problems: Current Active Problems Problem Status Onset Abdominal pain Acute COPD exacerbation Acute Chronic back pain Chronic Condition: GOOD Discharge Instructions (ExitCare): COPD (Chronic Obstructive Pulmonary Disease ) (ED), Abdominal Pain (ED), Back Pain (ED) Additional Instructions: PLEASE RETURN TO THE EMERGENCY DEPARTMENT FOR NEW OR WORSENING SYMPTOMS. RETURN RIGHT AWAY IF YOU CANNOT FOLLOW UP WITH YOUR PRIMARY CARE DOCTOR, CLINIC, OR SPECIALIST IN 1-2 DAYS. Prescriptions: Albuterol HFA [Ventolin HFA 90 mcg/actuation (8 g)] 2 puff IH Q4 #1 puff Azithromycin [Zithromax] 250 mg PO DAILY #6 tab predniSONE [predniSONE Tab] 60 mg PO DAILY #12 tab Referrals: Jacob Clark MD [Primary Care Provider] - Follow up with primary
--- NOTE | 2016-11-13 03:18 | CT ---
EXAM: CT Abdomen and Pelvis Without Intravenous Contrast CLINICAL HISTORY: 51 years old, female; Pain; Abdominal pain; Additional info: Abd pain TECHNIQUE: Axial computed tomography images of the abdomen and pelvis without intravenous contrast. This CT exam was performed using one or more of the following dose reduction techniques: automated exposure control, adjustment of the mA and/or kV according to patient size, and/or use of iterative reconstruction technique. Coronal and sagittal reformatted images were created and reviewed. COMPARISON: CT - ABD PELVIS IV CONTRAST ONLY 10/23/2016 5:23:43 PM FINDINGS: Lower thorax: There is minimal bibasilar atelectasis. Mild emphysema in the visualized lower lungs. ABDOMEN: Liver: There are no focal liver lesions present. Gallbladder and bile ducts: The gallbladder is contracted but otherwise normal. No calcified stones. No ductal dilation. Pancreas: The pancreas is normal. No ductal dilation. Spleen: The spleen is normal. Adrenals: The adrenal glands are normal. Kidneys and ureters: The kidneys are normal. No obstructing stones. No hydronephrosis. Stomach and bowel: Stomach is predominantly decompressed. Colonic constipation is present. There is no evidence of intestinal obstruction. No mucosal thickening. Appendix: A normal appendix is identified. PELVIS: Bladder: The bladder is normal. No stones. Reproductive: The uterus is normal. ABDOMEN and PELVIS: Intraperitoneal space: There is no evidence of free intraperitoneal fluid. There is no free intraperitoneal air. Bones/joints: There is moderate diffuse osteopenia. No acute fracture. No dislocation. Soft tissues: Unremarkable. Vasculature: The aorta demonstrates mild atherosclerotic calcification. No abdominal aortic aneurysm. Lymph nodes: There is no evidence of lymphadenopathy. IMPRESSION: No acute findings.
--- NOTE | 2016-11-13 03:19 | CT ---
EXAM: CT Lumbar Spine Without Intravenous Contrast CLINICAL HISTORY: 51 years old, female; Pain; Low back pain TECHNIQUE: Axial computed tomography images of the lumbar spine without intravenous contrast. This CT exam was performed using one or more of the following dose reduction techniques: automated exposure control, adjustment of the mA and/or kV according to patient size, and/or use of iterative reconstruction technique. Coronal and sagittal reformatted images were created and reviewed. COMPARISON: MR - SPINE^LUMBAR 02/28/2012 12:20:05 PM FINDINGS: Vertebrae: Vertebral body heights are preserved without evidence for compression deformity. No evidence for acute fracture or subluxation. Discs/spinal canal/neural foramina: Mild multilevel disc bulges. These do not lead to high-grade central canal stenosis. Soft tissues: Unremarkable. IMPRESSION: 1. Mild multilevel disc bulges. These do not lead to high-grade central canal stenosis. 2. Vertebral body heights are preserved without evidence for compression deformity. 3. No evidence for acute fracture or subluxation.
[2016-11-13 04:49] VITALS: BP 106/67; PULSE 83; O2SAT 97
--- NOTE | 2016-11-13 08:43 | RAD ---
HISTORY: cough COMPARISON: 10/16/2016 FINDINGS: LUNGS: No active pulmonary disease. PLEURA: No significant pleural effusion identified, no pneumothorax apparent. CARDIOVASCULAR: Normal. OSSEOUS STRUCTURES: No significant abnormalities. VISUALIZED UPPER ABDOMEN: Normal. OTHER FINDINGS: None. IMPRESSION: No active disease.
--- NOTE | 2016-11-13 14:08 | CARD ---
APPROVED REPORT EKG Measurement Heart [id number] <Conclusion> Normal sinus rhythm Normal ECG
== END 2016-11-13 04:56 | disposition home or self-care (01) ==
LOC: ED 23:14
DX: J44.1 Chronic obstructive pulmonary disease with (acute) exacerbation (principal); R10.9 Unspecified abdominal pain; M54.9 Dorsalgia, unspecified; G89.29 Other chronic pain; F17.210 Nicotine dependence, cigarettes, uncomplicated
CPT/HCPCS: 71010; 72131; 74176; 80053; 85025; 85610; 85730; 93005; 94640; 96374; 96375; 96376; 99284; J1885; J2930

== ENCOUNTER 2017-02-24 19:57 | Emergency (ER) | payer MEDICAID ==
[2017-02-24 19:57] VITALS: BMI 18.9
[2017-02-24 20:23] VITALS: O2SAT 97
[2017-02-24] MEDS ORDERED: Sodium Chloride 0.9% 1,000 ML IV STA (22:01)
--- NOTE | 2017-02-24 22:21 | ED PDOC ---
Arrival/HPI - General Chief Complaint: Abdominal Pain Time Seen by Provider: 02/24/17 20:02 Historian: Patient - History of Present Illness Narrative History of Present Illness (Text): 02/24/17 22:00 51 year old female who presents to the Emergency department complaining of suprapubic abdominal pain with associated constipation for 2 days. Patient states she took a laxative 2 days ago because she knew she was constipated and had 5 bowel movement the following day. Paitent states since then she has been experiencing rectal pain with increasing suprapuic pain. Patient also complaining of urinary frequency. Patient denies any fever, chills, nausea, vomiting, or any other complaints. Patient recently underwent a colonoscopy in June 2016 which showed internal hemorrhoids, but was normal otherwise. PMD: Dr. Clark GI: Dr. Guerrier Symptom Onset: Gradual Symptom Course: Unchanged Activities at Onset: Light Context: Home Past Medical History - Provider Review Nursing Documentation Reviewed: Yes - Infectious Disease Hx of Infectious Diseases: None - Tetanus Immunization Tetanus Immunization: Unknown - Cardiac Hx Cardiac Disorders: No - Pulmonary Hx Respiratory Disorders: Yes (SMOKES PPD QUIT) Hx Chronic Obstructive Pulmonary Disease (COPD): Yes - Neurological Hx Neurological Disorder: No - HEENT Hx HEENT Disorder: Yes (eyeglasses) - Renal Hx Renal Disorder: No - Endocrine/Metabolic Hx Endocrine Disorders: No - Hematological/Oncological Hx Blood Disorders: No - Integumentary Hx Dermatological Disorder: Yes Other/Comment: multiple skin discolorations - Musculoskeletal/Rheumatological Hx Back Pain: Yes Hx Herniated Disk: Yes - Gastrointestinal Hx Gastrointestinal Disorders: Yes (CONSTIPATION) Other/Comment: ABD PAIN - Genitourinary/Gynecological Hx Genitourinary Disorders: Yes Other/Comment: OVARIAN CYSTS REMOVED - Psychiatric Hx Psychophysiologic Disorder: Yes Hx Anxiety: Yes Hx Depression: Yes Hx Substance Use: No - Surgical History Hx Tubal Ligation: Yes Other/Comment: MYOMECTOMY, uterine fibroid sx,ovarian cystectomy x2, tubal ligation, d&c - Anesthesia Hx Anesthesia: Yes - Suicidal Assessment Feels Threatened In Home Enviroment: No Family/Social History - Physician Review Nursing Documentation Reviewed: Yes Family/Social History: Unknown Family HX Smoking Status: Heavy Smoker > 10 Cigarettes Daily Hx Alcohol Use: Yes (alcohol x 5 yrs) Hx Substance Use: No Hx Substance Use Treatment: No Allergies/Home Meds Allergies/Adverse Reactions: Allergies hydroxyzine Allergy (Severe, Verified 02/24/17 20:13) FATIGUE hydroxyzine HCl [From Atarax] Allergy (Verified 02/24/17 20:13) FATIGUE Penicillins Allergy (Verified 02/24/17 20:13) RASH Home Medications: Home Meds Medication Instructions Recorded Confirmed Oxycodone HCl [Oxycontin] 80 mg PO BID 02/04/16 02/24/17 oxyCODONE [oxyCODONE Immediate 30 mg PO BID PRN 02/04/16 02/24/17 Release Tab] Alprazolam 1 mg PO QID 11/13/16 02/24/17 Pantoprazole [Protonix] 40 mg PO DAILY 11/13/16 02/24/17 Review of Systems - Physician Review All systems were reviewed & negative as marked: Yes - Review of Systems Constitutional: Normal. absent: Fevers Eyes: Normal ENT: Normal Respiratory: Normal. absent: SOB, Cough Cardiovascular: Normal. absent: Chest Pain Gastrointestinal: Abdominal Pain, Constipation, Other (+rectal pain). absent: Diarrhea, Nausea, Vomiting Genitourinary Female: Frequency. absent: Dysuria Musculoskeletal: Normal. absent: Back Pain, Neck Pain Skin: Normal. absent: Rash Neurological: Normal. absent: Headache, Dizziness Endocrine: Normal Hemo/Lymphatic: Normal Psychiatric: Normal Physical Exam Vital Signs Reviewed: Yes Vital Signs Temp Pulse Resp BP Pulse Ox 02/25/17 00:30 98.0 F 78 18 110/66 97 02/24/17 20:15 98.3 F 86 17 104/69 97 Temperature: Afebrile Blood Pressure: Normal Pulse: Regular Respiratory Rate: Normal Appearance: Positive for: Well-Appearing, Non-Toxic, Comfortable Pain Distress: Mild Mental Status: Positive for: Alert and Oriented X 3, other (Anxious) - Systems Exam Head: Present: Atraumatic, Normocephalic Pupils: Present: PERRL Extroacular Muscles: Present: EOMI Conjunctiva: Present: Normal Mouth: Present: Dry Neck: Present: Normal Range of Motion Respiratory/Chest: Present: Clear to Auscultation, Good Air Exchange. No: Respiratory Distress, Accessory Muscle Use Cardiovascular: Present: Regular Rate and Rhythm, Normal S1, S2. No: Murmurs Abdomen: Present: Tenderness (Mild diffuse abdominal tenderness, greatest in suprapubic area), Normal Bowel Sounds. No: Distention, Peritoneal Signs Rectal: Present: Rectal Tenderness (Tenderness on digital exam), Hemorrhoids ( Few small external hemorrhoids, non-thombosed, non-tender), Other (No fecal impaction noted on digital exam. Female social service technician was present during the exam. ) Medical Decision Making ED Course and Treatment: 02/24/17 22:00 Impression: 51 year old female complaining of suprapubic pain, constipation, rectal pain, and urinary frequency. Plan: -- Labs, lipase -- Urinalysis, urine cultures -- IV fluids -- Pepcid -- Toradol -- Reassess and disposition Progress Notes: AXR: FOS, no air fluid levels, as read by TRINITY. On re-evaluation, patient is resting in bed comfortably in no acute distress. Patient has improvement of abdominal pain and rectal pain. On exam, abdomen remains soft with no tenderness, no guarding or rebound. Labs reviewed and are wnl. Lab and XR results d/w the patient in great detail. UA is still pending and the patient is refusing to wait for UA results. States that she would rather go home and that she needs to go home as she is due for her evening dose of oxycodone. Patient advised to reconsider waiting for UA results, however she continues to refuse to wait and states she would rather go home. Patient advised to follow-up with her PMD and GI doctor in 2 days without fail for reevaluation. Patient given prescription for Colace. Otherwise advised to return emergency room at any time for any new or worsening symptoms. - Lab Interpretations Lab Results: 02/24/17 22:20 02/24/17 22:20 Lab Results 02/24/17 22:20: Sodium 142, Potassium 4.1, Chloride 100, Carbon Dioxide 34 H, Anion Gap 12, BUN 6 L, Creatinine 0.7, Est GFR ( Amer) > 60, Est GFR (Non -Af Amer) > 60, Random Glucose 95, Calcium 9.8, Total Bilirubin 0.4, AST 29, ALT 11, Alkaline Phosphatase 104, Total Protein 7.4, Albumin 4.3, Globulin 3.1, Albumin/Globulin Ratio 1.4, Lipase 24 02/24/17 22:20: WBC 6.1, RBC 4.41, Hgb 13.8, Hct 41.3, MCV 93.7, MCH 31.3, MCHC 33.4, RDW 13.0, Plt Count 136, MPV 12.9 H, Gran % 51.6, Lymph % (Auto) 38.2 H, Mccormick % (Auto) 6.9 H, Eos % (Auto) 2.6, Baso % (Auto) 0.7, Gran # 3.16, Lymph # 2.3, Mccormick # 0.4, Eos # 0.2, Baso # 0.04 - RAD Interpretation Radiology Orders: 02/24/17 22:02 obstructive series [ABD 2 VIEWS (FLAT/UP OR DECUB)] [RAD] Stat - Medication Orders Current Medication Orders: Discontinued Medications Dicyclomine HCl (Bentyl) 10 mg PO STAT STA Stop: 02/24/17 23:45 Last Admin: 02/25/17 00:27 Dose: 10 mg Famotidine (Pepcid) 20 mg IVP STAT STA Stop: 02/24/17 22:02 Last Admin: 02/24/17 22:36 Dose: 20 mg Sodium Chloride (Sodium Chloride 0.9%) 1,000 mls @ 1,000 mls/hr IV .Q1H STA Stop: 02/24/17 23:00 Last Admin: 02/24/17 22:36 Dose: 1,000 mls/hr Ketorolac Tromethamine (Toradol) 30 mg IVP STAT STA Stop: 02/24/17 22:02 Last Admin: 02/24/17 22:37 Dose: Not Given Non-Admin Reason: Patient Refused - 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 - Scribe Statement The provider has reviewed the documentation as recorded by the Kobyibkellen Valle All medical record entries made by the Jeronimo were at my direction and personally dictated by me. I have reviewed the chart and agree that the record accurately reflects my personal performance of the history, physical exam, medical decision making, and the department course for this patient. I have also personally directed, reviewed, and agree with the discharge instructions and disposition. Disposition/Present on Arrival - Present on Arrival Any Indicators Present on Arrival: No History of DVT/PE: No History of Uncontrolled Diabetes: No Urinary Catheter: No History of Decub. Ulcer: No History Surgical Site Infection Following: None - Disposition Have Diagnosis and Disposition been Completed?: Yes Diagnosis: Abdominal pain, Constipation Disposition: HOME/ ROUTINE Disposition Time: 01:00 Patient Plan: Discharge Condition: IMPROVED Discharge Instructions (ExitCare): Constipation (ED), High Fiber Diet (ED), Abdominal Pain (ED) Print Language: MALIAN Additional Instructions: Thank you for letting us take care of you today. You were treated for abdominal pain, constipation. The emergency medical care you received today was directed at your acute symptoms. If you were prescribed any medication, please fill it and take as directed. It may take several days for your symptoms to resolve. Return to the Emergency Department if your symptoms worsen, do not improve, or if you have any other problems. Please contact your pmd and GI in 2 days for re-evaluation and follow up. Bring any paperwork you were given at discharge with you along with any medications you are taking to your follow up visit. Our treatment cannot replace ongoing medical care by a primary care provider (PCP) outside of the emergency department. Thank you for allowing the [facility] team to be part of your care today. Prescriptions: Docusate Sodium [Colace] 100 mg PO BID #30 capsule Referrals: Jacob Clark MD [Primary Care Provider] - Follow up with primary Forms: [employer] (Slovak)
[2017-02-24 22:46] LABS: BASO # 0.04 K/mm3 (0.0-2.0); BASO % 0.7 % (0.0-3.0); EOS # 0.2 (0.0-0.7); EOS % 2.6 % (1.5-5.0); GRAN # 3.16 (1.4-6.5); GRAN % 51.6 % (50.0-68.0); HEMATOCRIT 41.3 % (36.0-48.0); LYMPH # 2.3 (1.2-3.4); LYMPH % 38.2 % (22.0-35.0); MEAN CELL VOLUME 93.7 fl (80.0-105.0); MEAN CORPUSCULAR HEMOGLOBIN 31.3 pg (25.0-35.0); MEAN CORPUSCULAR HGB CONC 33.4 g/dl (31.0-37.0); MEAN PLATELET VOLUME 12.9 fl (7.0-11.0); MONO # 0.4 (0.1-0.6); MONO % 6.9 % (1.0-6.0); WHITE BLOOD COUNT 6.1 10^3/ul (4.5-11.0)
[2017-02-24 22:51] LABS: ALB/GLOB RATIO 1.4 (1.1-1.8); ALKALINE PHOSPHATASE 104 U/L (38-126); ALT/SGPT 11 U/L (7-56); AST/SGOT 29 U/L (14-36); BILIRUBIN,TOTAL 0.4 mg/dL (0.2-1.3); BLOOD UREA NITROGEN 6 mg/dL (7-21); CALCIUM 9.8 mg/dL (8.4-10.5); CARBON DIOXIDE 34 mmol/L (21-33); CHLORIDE 100 mmol/L (98-107); GFR AFRICAN-AMERICAN > 60; GLUCOSE,RANDOM 95 mg/dL (70-110); LIPASE 24 U/L (23-300); POTASSIUM 4.1 mmol/L (3.6-5.0); SODIUM 142 mmol/L (132-148); TOTAL PROTEIN 7.4 g/dL (5.8-8.3)
[2017-02-25 02:28] VITALS: BP 110/66; PULSE 78; RESP 18; TEMP 98
--- NOTE | 2017-02-25 11:46 | RAD ---
HISTORY: abdominal pain, constipation COMPARISON: No prior. FINDINGS: BOWEL: Normal. No obstruction. No free air. BONES: Normal. OTHER FINDINGS: None. IMPRESSION: No significant or acute findings to account for/ related to the clinical presentation.
== END 2017-02-25 02:00 | disposition home or self-care (01) ==
LOC: ED 19:57
DX: K59.00 Constipation, unspecified (principal); R10.9 Unspecified abdominal pain
CPT/HCPCS: 74020; 80053; 83690; 85025; 96374; 99284; J7040

== ENCOUNTER 2017-03-21 18:33 | Observation (INO) | payer MEDICAID ==
[2017-03-21 18:45] VITALS: BMI 18.8
[2017-03-21] MEDS: Albuterol-Ipratrop 3 mg / 0.5 (3 ml) UD IH SCH ×2 (19:30→19:45)
[2017-03-21 19:32] LABS: BASO # 0.05 K/mm3 (0.0-2.0); BASO % 0.7 % (0.0-3.0); EOS # 0.2 (0.0-0.7); GRAN # 4.37 (1.4-6.5); HEMATOCRIT 40.9 % (36.0-48.0); LYMPH # 1.7 (1.2-3.4); LYMPH % 25.1 % (22.0-35.0); MEAN CELL VOLUME 92.7 fl (80.0-105.0); MEAN CORPUSCULAR HEMOGLOBIN 31.1 pg (25.0-35.0); MEAN CORPUSCULAR HGB CONC 33.5 g/dl (31.0-37.0); MEAN PLATELET VOLUME 13.5 fl (7.0-11.0); MONO # 0.4 (0.1-0.6); MONO % 6.2 % (1.0-6.0); RED CELL DISTRIBUTION WIDTH 13.2 % (11.5-14.5); WHITE BLOOD COUNT 6.7 10^3/ul (4.5-11.0)
[2017-03-21] MEDS ORDERED: HYDROmorphone 2 mg/ml ISec IVP STA (19:39)
[2017-03-21 19:41] LABS: INR 1.19 (0.93-1.08); PARTIAL THROMBOPLASTIN TIME 25.9 Seconds (23.7-30.8)
[2017-03-21 19:42] LABS: ALB/GLOB RATIO 1.4 (1.1-1.8); ALKALINE PHOSPHATASE 120 U/L (38-126); ALT/SGPT 22 U/L (7-56); AST/SGOT 22 U/L (14-36); BILIRUBIN,TOTAL 0.4 mg/dL (0.2-1.3); BLOOD UREA NITROGEN 7 mg/dL (7-21); CALCIUM 9.2 mg/dL (8.4-10.5); CARBON DIOXIDE 27 mmol/L (21-33); CHLORIDE 103 mmol/L (98-107); GFR AFRICAN-AMERICAN > 60; GLUCOSE,RANDOM 104 mg/dL (70-110); POTASSIUM 3.5 mmol/L (3.6-5.0); SODIUM 139 mmol/L (132-148); TOTAL PROTEIN 6.9 g/dL (5.8-8.3)
[2017-03-21 20:00] LABS: TROPONIN I < 0.01 ng/mL
[2017-03-21] MEDS ORDERED: Iohexol 350 MG/100 ML VIAL ONE (20:46)
[2017-03-21] MEDS ORDERED: oxyCODONE 80 mg ER Tab (oxyCONTIN) PO STA (20:57)
--- NOTE | 2017-03-21 21:36 | ED PDOC ---
Arrival/HPI - General Chief Complaint: Chest Pain Time Seen by Provider: 03/21/17 19:12 Historian: Patient - History of Present Illness Narrative History of Present Illness (Text): 03/21/17 21:00 A 51 year old female, whose past medical history includes COPD and bronchitis, was brought in by EMS and presents to the emergency department complaining of chest pain and shortness of breath since 16:00 today. Patient reports chest pain increases when taking deep breaths. Describes pain located around whole chest. Patient denies any fever, chills, nausea, vomiting, diarrhea, abdominal pain, or any other complaints. Also, patient mentions she still smokes. PMD: Dr. Jacob Clark Time/Duration: Other (16:00 today) Past Medical History - Provider Review Nursing Documentation Reviewed: Yes - Infectious Disease Hx of Infectious Diseases: None - Tetanus Immunization Tetanus Immunization: Unknown - Cardiac Hx Cardiac Disorders: No - Pulmonary Hx Bronchitis: Yes Hx Chronic Obstructive Pulmonary Disease (COPD): Yes - Neurological Hx Neurological Disorder: No - HEENT Hx HEENT Disorder: Yes (eyeglasses) - Renal Hx Renal Disorder: No - Endocrine/Metabolic Hx Endocrine Disorders: No - Hematological/Oncological Hx Blood Disorders: No - Integumentary Hx Dermatological Disorder: Yes Other/Comment: multiple skin discolorations - Musculoskeletal/Rheumatological Hx Arthritis: Yes - Gastrointestinal Hx Gastrointestinal Disorders: Yes (CONSTIPATION) Other/Comment: ABD PAIN - Genitourinary/Gynecological Hx Genitourinary Disorders: Yes Other/Comment: OVARIAN CYSTS REMOVED - Psychiatric Hx Anxiety: Yes Hx Depression: Yes Hx Substance Use: No - Surgical History Hx Appendectomy: (pt denies) - Anesthesia Hx Anesthesia: Yes Hx Anesthesia Reactions: No - Suicidal Assessment Feels Threatened In Home Enviroment: No Family/Social History - Physician Review Nursing Documentation Reviewed: Yes Family/Social History: No Known Family HX Smoking Status: Heavy Smoker > 10 Cigarettes Daily Hx Alcohol Use: No Hx Substance Use: No Hx Substance Use Treatment: No Allergies/Home Meds Allergies/Adverse Reactions: Allergies hydroxyzine Allergy (Severe, Verified 03/15/17 22:47) FATIGUE Penicillins Allergy (Verified 03/15/17 22:47) RASH Home Medications: Home Meds Medication Instructions Recorded Confirmed Oxycodone HCl [Oxycontin] 80 mg PO BID 02/04/16 03/21/17 oxyCODONE [oxyCODONE Immediate 30 mg PO BID PRN 02/04/16 03/21/17 Release Tab] Alprazolam 1 mg PO DAILY 11/13/16 03/21/17 Pantoprazole [Protonix EC Tab] 40 mg PO DAILY 11/13/16 03/21/17 Albuterol HFA [Ventolin HFA 90 2 puff IH Q4 PRN 03/12/17 03/21/17 mcg/actuation (8 g)] Alprazolam 1 tab PO BID 03/12/17 03/21/17 Review of Systems - Physician Review All systems were reviewed & negative as marked: Yes - Review of Systems Constitutional: absent: Fevers, Night Sweats Respiratory: SOB Cardiovascular: Chest Pain (pain increases when taking deep breaths). absent: Palpitations Gastrointestinal: absent: Abdominal Pain, Diarrhea, Nausea, Vomiting Physical Exam Vital Signs Reviewed: Yes Vital Signs Temp Pulse Resp BP Pulse Ox 03/21/17 23:00 82 16 109/68 98 03/21/17 21:00 83 16 120/76 99 03/21/17 19:49 98.3 F 03/21/17 18:50 80 22 146/101 H 97 Temperature: Afebrile Blood Pressure: Normal Pulse: Regular Respiratory Rate: Normal Appearance: Positive for: Well-Appearing Pain Distress: None Mental Status: Positive for: Alert and Oriented X 3 - Systems Exam Head: Present: Atraumatic, Normocephalic Pupils: Present: PERRL Extroacular Muscles: Present: EOMI Conjunctiva: Present: Normal Mouth: Present: Moist Mucous Membranes Neck: Present: Normal Range of Motion Respiratory/Chest: Present: Decreased Breath Sounds (poor air exchange) Cardiovascular: Present: Regular Rate and Rhythm, Normal S1, S2. No: Murmurs Abdomen: Present: Normal Bowel Sounds. No: Tenderness, Distention, Peritoneal Signs Back: Present: Normal Inspection Upper Extremity: Present: Normal Inspection. No: Cyanosis, Edema Lower Extremity: Present: Normal Inspection. No: Edema Neurological: Present: GCS=15, CN II-XII Intact, Speech Normal Skin: Present: Warm, Dry, Normal Color. No: Rashes Psychiatric: Present: Alert, Oriented x 3, Normal Insight, Normal Concentration Medical Decision Making ED Course and Treatment: 03/21/17 21:05 Impression: 51 year old female with chest pain and shortness of breath. Physical exam shows decreased breath sounds. Plan: -- EKG -- Chest CT -- Chest X-ray -- Labs -- Dilaudid -- Oxycodone -- Potassium chloride -- Toradol -- Zofran -- Reassess and disposition Prior Visits: Notes and results from previous visits were reviewed. Patient was last seen in the emergency department on 03/15/2017 for right foot cramping. Patient was discharged home. Progress Notes: EKG: Ordered, reviewed, and independently interpreted the EKG. Rate : 83 BPM Rhythm : NSR Interpretation : Possible left Atrial englargment. No ST-segment elevations or depressions, no T-wave inversions, normal intervals. Comparison : No previous EKG for comparison. 03/21/17 21:32 Chest X-ray shows COPD, as interpreted by me. 03/21/2017 21:[address] IMPRESSION: No pulmonary embolism. Centribolur emphysema. The lungs are clear. Dictator: Manisha Ibarra MD pt with cp and sob, copd case sd/w dr orantes and medical office supervisor for tele obs 03/24/17 08:08 - Lab Interpretations Lab Results: 03/21/17 18:50 03/21/17 18:50 Lab Results 03/21/17 18:50: Phosphorus 3.5, Magnesium 1.9 03/21/17 18:50: Sodium 139, Potassium 3.5 L, Chloride 103, Carbon Dioxide 27, Anion Gap 13, BUN 7, Creatinine 0.8, Est GFR ( Amer) > 60, Est GFR (Non- Af Amer) > 60, Random Glucose 104, Calcium 9.2, Total Bilirubin 0.4, AST 22, ALT 22, Alkaline Phosphatase 120, Lactate Dehydrogenase 411, Total Creatine Kinase 55, Troponin I < 0.01, Total Protein 6.9, Albumin 4.1, Globulin 2.9, Albumin/Globulin Ratio 1.4 03/21/17 18:50: PT 12.8 H, INR 1.19 H, APTT 25.9 03/21/17 18:50: WBC 6.7, RBC 4.41, Hgb 13.7, Hct 40.9, MCV 92.7, MCH 31.1, MCHC 33.5, RDW 13.2, Plt Count 149, MPV 13.5 H, Gran % 65.0, Lymph % (Auto) 25.1, [place] % (Auto) 6.2 H, Eos % (Auto) 3.0, Baso % (Auto) 0.7, Gran # 4.37, Lymph # 1.7, [place] # 0.4, Eos # 0.2, Baso # 0.05 I have reviewed the lab results: Yes - RAD Interpretation Radiology Orders: 03/21/17 19:47 CHEST PORTABLE [RAD] Stat 03/21/17 20:25 ANGIO CHEST PE PROTOCOL [CT] Stat - Medication Orders Current Medication Orders: Discontinued Medications Albuterol (Ventolin Hfa 90 Mcg/Actuation (8 G)) 2 puff IH Q4 PRN PRN Reason: Shortness of Breath Albuterol/Ipratropium (Duoneb 3 Mg/0.5 Mg (3 Ml) Ud) 3 ml IH Q15M [facility] Stop: 03/21/17 20:01 Last Admin: 03/21/17 19:45 Dose: 3 ml Albuterol/Ipratropium (Duoneb 3 Mg/0.5 Mg (3 Ml) Ud) 3 ml IH Q2H PRN PRN Reason: Shortness of Breath Albuterol/Ipratropium (Duoneb 3 Mg/0.5 Mg (3 Ml) Ud) 3 ml IH [id number] [facility] Last Admin: 03/23/17 11:32 Dose: 3 ml Alprazolam (Xanax) 1 mg PO DAILY PRN; Protocol PRN Reason: Agitation Last Admin: 03/23/17 02:16 Dose: 1 mg Behavioural Document 03/23/17 02:16 GC (Rec: 03/23/17 02:[id number] Maintenance Maintenance Dose Yes Nonmedicinal Nonmedicinal Interventions Redirect Therapeutic Communication Activity Behavior Behavior for Medication: Anxiety Re-Assess: Reassess Psych Meds Document 03/23/17 03:16 GC (Rec: 03/23/17 03:31 GC [id number]) Reassess Psych Med Effective Alprazolam (Xanax) 1 mg PO BID [facility] Last Admin: 03/23/17 09:57 Dose: 1 mg Behavioural Document 03/23/17 09:57 DH (Rec: 03/23/17 09:57 [id number]) Maintenance Maintenance Dose Yes Re-Assess: Reassess Psych Meds Document 03/23/17 10:57 (Rec: 03/23/17 11:24 [id number]) Reassess Psych Med Effective Aspirin (Aspirin Chewable) 81 mg PO DAILY [facility] Last Admin: 03/23/17 09:57 Dose: 81 mg Clopidogrel Bisulfate (Plavix) 300 mg PO STAT STA Stop: 03/23/17 09:05 Last Admin: 03/23/17 09:56 Dose: 300 mg Clopidogrel Bisulfate (Plavix) 75 mg PO DAILY [facility] Clotrimazole (Lotrimin 1% Vaginal) 0 gm VG DAILY G[facility] Stop: 03/28/17 10:01 Last Admin: 03/23/17 09:56 Dose: 1 appl Hydrocortisone (Anusol-Hc) 2.5 gm AK BID [facility] Last Admin: 03/23/17 09:56 Dose: 1 unit Hydromorphone HCl (Dilaudid) 2 mg IVP STAT STA Stop: 03/21/17 19:40 Last Admin: 03/21/17 19:52 Dose: 2 mg MAR Pain Assessment Document 03/21/17 19:52 JOL (Rec: 03/21/17 19:53 JOL [id number]) Pain Reassessment Is this a pain reassessment? No Sleep Is patient sleeping during reassessment? No Presence of Pain Presence of Pain Yes Pain Scale Used Pain Scale Used Numeric Location Pain Location Body Site Chest Description Intensity of Pain at present 6 Pain Behavior Restlessness Facial Grimacing IVP Administration Document 03/21/17 19:52 JOL (Rec: 03/21/17 19:53 JOL [id number]) Charges for Administration # of IVP Administrations 1 Potassium Chloride (Potassium Chloride 10 Meq/100 Ml) 10 meq in 100 mls @ 100 mls/hr IVPB Q2H G[facility] Stop: 03/22/17 00:14 Last Admin: 03/22/17 00:22 Dose: 100 mls/hr eMAR Start Stop Document 03/22/17 00:22 GC (Rec: 03/22/17 00:23 GC [id number]) Intravenous Solution Start Date 03/22/17 Start Time 00:23 End Date 03/22/17 End time 01:23 Total Infusion Time 60 Ketorolac Tromethamine (Toradol) 30 mg IVP ONCE ONE Stop: 03/21/17 19:29 Last Admin: 03/21/17 19:43 Dose: 30 mg MAR Pain Assessment Document 03/21/17 19:43 JOL (Rec: 03/21/17 19:44 [id number] Pain Reassessment Is this a pain reassessment? No Sleep Is patient sleeping during reassessment? No Presence of Pain Presence of Pain Yes Pain Scale Used Pain Scale Used Numeric Location Pain Location Body Site Chest Description Intensity of Pain at present 6 IVP Administration Document 03/21/17 19:43 JOL (Rec: 03/21/17 19:44 [id number]) Charges for Administration # of IVP Administrations 1 Multi-Ingredient Ointment (Prep-Hem) 0 ea TOP BID GABY Last Admin: 03/22/17 10:40 Dose: 1 appful Ondansetron HCl (Zofran Inj) 4 mg IVP STAT STA Stop: 03/21/17 19:40 Last Admin: 03/21/17 19:53 Dose: 4 mg IVP Administration Document 03/21/17 19:53 JOL (Rec: 03/21/17 19:54 [id number]) Charges for Administration # of IVP Administrations 1 Oxycodone HCl (Oxycontin Extended Release Tab) 80 mg PO STAT STA Stop: 03/21/17 20:58 Last Admin: 03/21/17 21:12 Dose: 80 mg MAR Pain Assessment Document 03/21/17 21:12 JOL (Rec: 03/21/17 21:12 [id number] Pain Reassessment Is this a pain reassessment? No Sleep Is patient sleeping during reassessment? No Presence of Pain Presence of Pain Yes Pain Scale Used Pain Scale Used Numeric Location Pain Location Body Site Generalized Description Intensity of Pain at present 7 Oxycodone HCl (Oxycodone Immediate Release Tab) 30 mg PO Q12H PRN PRN Reason: Pain, severe (8-10) Last Admin: 03/22/17 17:37 Dose: 30 mg MAR Pain Assessment Document 03/22/17 17:37 MM (Rec: 03/22/17 17:38 MM [id number]) Pain Reassessment Is this a pain reassessment? No Sleep Is patient sleeping during reassessment? No Presence of Pain Presence of Pain Yes Pain Scale Used Pain Scale Used Numeric Location Left, Right or Bilateral Bilateral Pain Location Body Site Back Description Description Constant Intensity of Pain at present 10 Acceptable Level of Pain 5 Pain Behavior Irritability Alleviating Factors/Management Medication Techniques Position Change Alleviating Factors Medication Re-Assess: [facility] Pain Assessment Document 03/22/17 18:37 GC (Rec: 03/22/17 20:48 GC [place] [id number]) Pain Reassessment Is this a pain reassessment? Yes Sleep Is patient sleeping during reassessment? No Presence of Pain Presence of Pain No Oxycodone HCl (Oxycontin Extended Release Tab) 80 mg PO Q12H [facility] Last Admin: 03/22/17 11:48 Dose: 80 mg [facility] Pain Assessment Document 03/22/17 11:48 MM (Rec: 03/22/17 11:49 MM [place] [id number]) Pain Reassessment Is this a pain reassessment? Yes Sleep Is patient sleeping during reassessment? No Presence of Pain Presence of Pain Yes Pain Scale Used Pain Scale Used FLACC Location Pain Location Body Site Back Leg Description Description Intermittent Intensity of Pain at present 5 Pain Behavior Irritability Alleviating Factors/Management Medication Techniques Alleviating Factors Medication Re-Assess: [facility] Pain Assessment Document 03/22/17 12:18 MM (Rec: 03/22/17 13:42 MM [place] [id number]) Pain Reassessment Is this a pain reassessment? Yes Sleep Is patient sleeping during reassessment? Yes Oxycodone HCl (Oxycontin Extended Release Tab) 80 mg PO Q12H [facility] Last Admin: 03/23/17 08:31 Dose: 80 mg [facility] Pain Assessment Document 03/23/17 08:31 DH (Rec: 03/23/17 08:31 DH [facility] [id number][place] Pain Reassessment Is this a pain reassessment? No Presence of Pain Presence of Pain Yes Location Upper or Lower Lower Pain Location Body Site Back Description Intensity of Pain at present 8 Re-Assess: [facility] Pain Assessment Document 03/23/17 09:01 DH (Rec: 03/23/17 09:57 DH [id number]) Pain Reassessment Is this a pain reassessment? Yes Presence of Pain Presence of Pain No Oxycodone HCl (Oxycodone Immediate Release Tab) 30 mg PO Q12H PRN PRN Reason: Pain, severe (8-10) Last Admin: 03/23/17 05:35 Dose: 30 mg [facility] Pain Assessment Document 03/23/17 05:35 GC (Rec: 03/23/17 05:35 GC [id number]) Pain Reassessment Is this a pain reassessment? No Sleep Is patient sleeping during reassessment? No Presence of Pain Presence of Pain Yes Pain Scale Used Pain Scale Used Numeric Location Upper or Lower Lower Pain Location Body Site Back Leg Description Description Constant Intensity of Pain at present 8 Acceptable Level of Pain 2 Re-Assess: [facility] Pain Assessment Document 03/23/17 06:35 GC (Rec: 03/23/17 06:56 GC [id number]) Pain Reassessment Is this a pain reassessment? Yes Sleep Is patient sleeping during reassessment? No Presence of Pain Presence of Pain No Pantoprazole Sodium (Protonix Ec Tab) 40 mg PO 0600 GABY Last Admin: 03/23/17 05:14 Dose: 40 mg - Scribe Statement The provider has reviewed the documentation as recorded by the Jeronimo Melvin Provider Scribe Attestation: All medical record entries made by the Jeronimo were at my direction and personally dictated by me. I have reviewed the chart and agree that the record accurately reflects my personal performance of the history, physical exam, medical decision making, and the department course for this patient. I have also personally directed, reviewed, and agree with the discharge instructions and disposition. Disposition/Present on Arrival - Present on Arrival Any Indicators Present on Arrival: No History of DVT/PE: No History of Uncontrolled Diabetes: No Urinary Catheter: No History of Decub. Ulcer: No History Surgical Site Infection Following: None - Disposition Have Diagnosis and Disposition been Completed?: Yes Diagnosis: COPD exacerbation Disposition: HOSPITALIZED Disposition Time: 21:30 Condition: GOOD
[2017-03-21 22:05] LABS: MAGNESIUM 1.9 mg/dL (1.7-2.2); PHOSPHOROUS 3.5 mg/dL (2.5-4.5)
--- NOTE | 2017-03-21 22:46 | CT ---
EXAM: CT Angiography Chest With Intravenous Contrast CLINICAL HISTORY: 51 years old, female; Pain; Chest pain; Type not specified; Additional info: Cp TECHNIQUE: Axial computed tomographic angiography images of the chest with intravenous contrast using pulmonary embolism protocol. All CT scans at this facility use one or more dose reduction techniques, viz.: automated exposure control; ma/kV adjustment per patient size (including targeted exams where dose is matched to indication; i.e. head); or iterative reconstruction technique. MIP reconstructed images were created and reviewed. Coronal and sagittal reformatted images were created and reviewed. CONTRAST: 100 mL of OMNI administered intravenously. COMPARISON: CT - ANGIO CHEST PE PROTOCOL 09/21/2016 3:09:17 PM FINDINGS: Pulmonary arteries: No pulmonary embolism. Aorta: No thoracic aortic aneurysm. Lungs: No mass. No consolidation. Centrilobular emphysema. Pleural spaces: No significant effusion. No pneumothorax. Heart: No cardiomegaly. No significant pericardial effusion. No evidence of right heart dysfunction. Bones: No acute fracture. Lymph nodes: No pathologically enlarged lymph nodes. IMPRESSION: No pulmonary embolism. Centrilobular emphysema. The lungs are clear.
[2017-03-21] MEDS ORDERED: oxyCODONE 30 mg Immediate Release Tab PO PRN (23:56)
[2017-03-21] MEDS ORDERED: Albuterol HFA 90 mcg/actuation (8 g) IH PRN (23:56)
[2017-03-22] MEDS ORDERED: Albuterol-Ipratrop 3 mg / 0.5 (3 ml) UD IH PRN (00:34)
[2017-03-22] MEDS: Hemorrohoidal Ointment (2 oz) TOP SCH ×2 (01:03→10:40)
--- NOTE | 2017-03-22 02:00 | CP.PCM.HP ---
History of Present Illness - History of Present Illness History of Present Illness: H/P For IM - TKS DO, PGY-1 CC: Chest Pain HPI: 51 F presents with 6 hour duration of sudden onset, sharp, non-radiating chest pain in the middle of her chest of 7/10 severity associated with light headedness and sob, which does not get better or worse with any intervention. Patient states that she was grocery shopping with her daughter when the pain started, but that it did not get better when she rested. She states that she became worried when the CP did not get better when she got home, and that was when she called EMS, and was BIBA. Pt does state that she had a recent SPECT stress test and ECHO. The former was normal, the latter showed mild MR and TR as well as an EF of 54%. Patient has never had an AMI, nor does she have stents placed. Pt was last seen by Dr. Lamb. Of note, patient also complained of vaginal itching and stated that she was recently dx'd with hemorrhoids by her PMD. 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/2016, opiate abuse/dependence, neuropathy, herniated disc, sciatica, scoliosis All: PCN, hydroxyzine (rash) SH: Admits to tobacco use: 1ppd x 20 yrs; recently cut down to 1/2ppd x 4 mos , denies ETOH or illicit drug use FHx: Non-contributory Meds: Oxycodone 80mg Q12H, Oxycodone 30mg Q12H, Protonix, Xanax, PMD: Fred ROS: Constitutional: pt denies fever, chills, generalized weakness ENT: pt denies dysphagia, otalgia, hearing deficit, rhinorrhea Eyes: pt denies sudden loss of vision, diplopia, blurred vision MSK: +pt states she has chronic pain; pt denies muscle stiffness, joint pain, extremity cramping Cardio: see hpi Pulm: +sob; pt denies cough, hemoptysis, wheeze GI: +hemorrhoids; pt denies loss of appetite, abdominal pain, constipation, melena, n/v/d : +vaginal itching, bumps; pt denies burning on urination, urinary frequency, hematuria, urinary urgency Neuro: pt denies paresis, paresthesia, dizziness, [place], numbness, tingling Derm: pt denies skin changes, lesions, nail changes Endo: pt denies intolerance to heat/cold, diaphoresis, night sweats, polydipsia Psych: pt denies anxiety, depression, mood changes Present on Admission - Present on Admission Any Indicators Present on Admission: No Past Patient History - Infectious Disease Hx of Infectious Diseases: None - Tetanus Immunizations Tetanus Immunization: Unknown - Past Medical History & Family History Past Medical History?: Yes - Past Social History Smoking Status: Former Smoker - CARDIAC Hx Cardiac Disorders: No - PULMONARY Hx Respiratory Disorders: Yes Hx Bronchitis: Yes Hx Chronic Obstructive Pulmonary Disease (COPD): Yes - NEUROLOGICAL Hx Neurological Disorder: No - HEENT Hx HEENT Problems: No - RENAL Hx Chronic Kidney Disease: No - ENDOCRINE/METABOLIC Hx Endocrine Disorders: No - HEMATOLOGICAL/ONCOLOGICAL Hx Blood Disorders: No - INTEGUMENTARY Hx Dermatological Problems: Yes (skin discoloration) - MUSCULOSKELETAL/RHEUMATOLOGICAL Hx Musculoskeletal Disorders: Yes Hx Arthritis: Yes Hx Falls: No - GASTROINTESTINAL Hx Gastrointestinal Disorders: Yes (CONSTIPATION) Other/Comment: ABD PAIN - GENITOURINARY/GYNECOLOGICAL Hx Genitourinary Disorders: No - PSYCHIATRIC Hx Psychophysiologic Disorder: Yes Hx Anxiety: Yes Hx Depression: Yes Hx Substance Use: No - SURGICAL HISTORY Hx Surgeries: Yes Other/Comment: ovarian cyst removal - ANESTHESIA Hx Anesthesia: Yes Hx Anesthesia Reactions: No Meds Allergies/Adverse Reactions: Allergies Allergy/AdvReac Type Severity Reaction Status Date / Time hydroxyzine Allergy Severe FATIGUE Verified 03/15/17 22:47 Penicillins Allergy RASH Verified 03/15/17 22:47 Physical Exam - Additional Findings Additional findings: Phys Exam: VS as below Constitutional: a&o x 4, nad Head and Neck: neck supple, no jvd, trachea midline, carotid midline, no cervical/head mass Eyes: jake, nonicteric sclera, eom intact ENT: auditory acuity grossly intact, throat not congested, no nasal deformity Cardio: rrr, no m/r/g, no carotid bruit, nml s1, s2 Pulm: +decreased breath sounds b/l; no accessory muscle use, ctab Abd: s/nt/nd, nbs x 4 q, no palpable masses Derm: no rashes, no ulcers, no lesions Extr: no edema, no cyanosis, no calf tenderness, no lesions, no varicosities Neuro: cn II-XII grossly intact, ue and le 5/5 muscle strength bilaterally, no los ue, le bilaterally and core : pt has multiple, erythematous, non-vesicular, urticarial lesions in her pelvic creases and around her vaginal opening, sparing the vulva Results - Vital Signs Recent Vital Signs: Last Vital Signs Temp 98.3 F 03/21/17 19:49 Pulse 86 03/22/17 00:41 Resp 20 03/22/17 00:41 BP 109/68 03/21/17 23:00 Pulse Ox 98 03/21/17 23:00 - Labs Result Diagrams: 03/21/17 18:50 03/21/17 18:50 Labs: Laboratory Results - last 24 hr 03/22/17 00:10 Troponin I < 0.01 Assessment & Plan - Assessment and Plan (Free Text) Assessment: A/P: 51 F with 6 hour duration of non-radiating chest pain - rule out ACS, PE Chest pain likely 2/2 hx/o COPD VS Unknown etiology. R/o ACS, PE - Lipid panel, A1C, TSH - AM Labs: CBC, CMP, Mg, Phos - Trend tropes, EKG: first set of tropes negative, EKG in the ER showed possible biatrial enlargement, no NIMA's - CTA showed no PE - ASA 81 - O2 via NC - Cardio c/s: Zainab Vaginitis - Continue home Clotrimazole Hemorrhoids - Continue home Preparation H Hx COPD - Duonebs Q6H GABY, Duonebs Q2H PRN - Hold home albuterol - O2 1L Hx/O Anxiety - Cont home Xanax Hx/O herniated disc - Cont home Oxycodone 80mg GABY and 30mg PRN PPHXS - Mercedes Score 3 - Protonix/SCD
[2017-03-22] MEDS: Albuterol-Ipratrop 3 mg / 0.5 (3 ml) UD IH SCH ×6 (03:30→23:20)
[2017-03-22] MEDS: Pantoprazole 40 mg EC Tab PO SCH (05:05)
[2017-03-22 05:50] LABS: BASO # 0.04 K/mm3 (0.0-2.0); BASO % 0.7 % (0.0-3.0); EOS # 0.2 (0.0-0.7); EOS % 4.1 % (1.5-5.0); GRAN # 3.3 (1.4-6.5); GRAN % 58.5 % (50.0-68.0); HEMATOCRIT 36.4 % (36.0-48.0); LYMPH # 1.7 (1.2-3.4); MEAN CELL VOLUME 93.8 fl (80.0-105.0); MEAN CORPUSCULAR HEMOGLOBIN 30.4 pg (25.0-35.0); MEAN CORPUSCULAR HGB CONC 32.4 g/dl (31.0-37.0); MEAN PLATELET VOLUME 12.9 fl (7.0-11.0); MONO # 0.4 (0.1-0.6); MONO % 6.7 % (1.0-6.0); RED CELL DISTRIBUTION WIDTH 13.5 % (11.5-14.5); WHITE BLOOD COUNT 5.6 10^3/ul (4.5-11.0)
[2017-03-22] MEDS ORDERED: oxyCODONE 80 mg ER Tab (oxyCONTIN) PO SCH (07:00)
[2017-03-22 07:45] LABS: TROPONIN I < 0.01 ng/mL
[2017-03-22 07:47] LABS: ALB/GLOB RATIO 1.3 (1.1-1.8); ALKALINE PHOSPHATASE 91 U/L (38-126); ALT/SGPT 15 U/L (7-56); AST/SGOT 21 U/L (14-36); BILIRUBIN,TOTAL 0.3 mg/dL (0.2-1.3); BLOOD UREA NITROGEN 9 mg/dL (7-21); CALCIUM 8.6 mg/dL (8.4-10.5); CARBON DIOXIDE 28 mmol/L (21-33); CHLORIDE 104 mmol/L (98-107); CHOLESTEROL 117 mg/dL (130-200); GFR AFRICAN-AMERICAN > 60; GLUCOSE,RANDOM 103 mg/dL (70-110); MAGNESIUM 1.9 mg/dL (1.7-2.2); PHOSPHOROUS 4.6 mg/dL (2.5-4.5); POTASSIUM 3.6 mmol/L (3.6-5.0); SODIUM 142 mmol/L (132-148); TOTAL PROTEIN 6.1 g/dL (5.8-8.3)
--- NOTE | 2017-03-22 08:01 | RAD ---
HISTORY: cp COMPARISON: 11/13/2016 FINDINGS: LUNGS: No active pulmonary disease. PLEURA: No significant pleural effusion identified, no pneumothorax apparent. CARDIOVASCULAR: Normal. OSSEOUS STRUCTURES: No significant abnormalities. VISUALIZED UPPER ABDOMEN: Normal. OTHER FINDINGS: None. IMPRESSION: No active disease.
[2017-03-22] MEDS: Clotrimazole 1% Vaginal Cream(45 gm) VG SCH (10:38)
[2017-03-22] MEDS ORDERED: oxyCODONE 30 mg Immediate Release Tab PO PRN (19:55)
[2017-03-22] MEDS: Hydrocortisone 2.5% Rectal Cream(30 gm) PR SCH ×2 (20:41→22:47)
--- NOTE | 2017-03-22 22:13 | CON ---
DATE: 03/22/2017 CARDIOLOGY CONSULTATION REASON FOR CONSULTATION: Chest pain, COPD exacerbation. BRIEF CLINICAL HISTORY: This is a 51-year-old female with past medical history significant for COPD and anxiety disorder, admitted with a complaint of chest pain and she feels that a hole is in the heart that feels like a bird is sitting in her chest. PAST MEDICAL HISTORY: Significant for COPD, hernia, anxiety disorder, and herniated disk. PAST SURGICAL HISTORY: Significant for fibroid removal and a cyst on the ovary, had tubal ligation many years ago. ALLERGIES: ALLERGIC TO PENICILLIN AND HYDROXYZINE. SOCIAL HISTORY: Actively smokes, still smokes half a pack a day. Denies any history of alcohol abuse. Denies any history of substance abuse. FAMILY HISTORY: Significant for coronary artery disease, hypertension and coronary artery bypass surgery. CURRENT MEDICATIONS: The patient is on at-home oxycodone, trimethoprim, Protonix, cotrimoxazole, Xanax 1 mg daily and 1 mg b.i.d., at night and at the morning. PREVIOUS CARDIAC WORKUP: As follows: The patient had echocardiography on 09/22/2016 that showed normal chamber size, EF 55%, atrial septal aneurysm with tiny PFO, right to left shunt intermittent noted, hemodynamically not significant with trace aortic regurgitation, [id number] mitral regurgitation, mild tricuspid regurgitation, aortic systolic pressure of 45, trace pulmonary insufficiency, dated 09/22/2016. The patient had a stress test done on 09/23/2016, that showed essentially normal myocardial perfusion with an ejection fraction of 73%. ASSESSMENT AND PLAN: A 51-year-old female with a past medical history of hypertension, high doses of oxycodone because of herniated disk, history of chronic obstructive pulmonary disease and anxiety disorder, admitted with acute exacerbation of chronic obstructive pulmonary disease. Last time, I explained to the patient that the patient has a tiny patent foramen ovale because the patient is fixated that it is a bird in the heart and a chest pain. Though the chest pain is very atypical, I suggested to the patient if the patient still continues with chest pain, the patient can have a cardiac catheterization to define the coronary anatomy, as a stress test. On 09/22/2016, Lexiscan was negative with still a PET sensitivity of 85%, so 10 to 15% chance of the chest pain is real true suggestive of ischemia, the patient should have a cardiac catheterization. Discussed in length with the patient and the daughter, if the patient agreed in a day or two, when the patient is able to lie flat can do the cardiac catheterization. Interim continue aggressive treatment for chronic obstructive pulmonary disease, follow up CPK and troponin. We will discuss the patient again. EKG shows normal sinus, no acute ST-T changes noted, pretty benign EKG. So far, troponin remains x4 negative. We will discuss with you. If the patient agrees, we will do the cardiac catheterization, otherwise the patient can be treated with medical treatment. So far, all troponins are negative. We will discuss with the patient and put tentatively for at 10:30. By the time, the patient's acute exacerbation would subside and the patient can lay flat. If the patient agrees, we will proceed for cardiac catheterization on at 10:30. Thank you Dr. Patricia Aquino for providing me the opportunity in taking care of Diann Phipps. We will follow with you. Rupert Gilliam MD cc: Patricia Aquino MD
[2017-03-22] MEDS: oxyCODONE 80 mg ER Tab (oxyCONTIN) PO SCH (22:46)
--- NOTE | 2017-03-23 00:56 | CARD ---
APPROVED REPORT EKG Measurement Heart [id number] 118P73 [id number] <Conclusion> Normal sinus rhythm Normal ECG
--- NOTE | 2017-03-23 01:09 | CARD ---
APPROVED REPORT EKG Measurement Heart [id number] CO 118P81 [id number] <Conclusion> Normal sinus rhythm Possible Left atrial enlargement Borderline ECG
[2017-03-23] MEDS: Albuterol-Ipratrop 3 mg / 0.5 (3 ml) UD IH SCH ×3 (04:04→11:32)
[2017-03-23] MEDS: Pantoprazole 40 mg EC Tab PO SCH (05:14)
[2017-03-23 06:20] VITALS: O2SAT 93
[2017-03-23 06:34] LABS: BASO # 0.04 K/mm3 (0.0-2.0); BASO % 0.7 % (0.0-3.0); EOS # 0.3 (0.0-0.7); EOS % 5.2 % (1.5-5.0); GRAN # 3.33 (1.4-6.5); GRAN % 60.1 % (50.0-68.0); HEMATOCRIT 39.5 % (36.0-48.0); LYMPH # 1.5 (1.2-3.4); LYMPH % 27.3 % (22.0-35.0); MEAN CELL VOLUME 94.7 fl (80.0-105.0); MEAN CORPUSCULAR HEMOGLOBIN 30.7 pg (25.0-35.0); MEAN CORPUSCULAR HGB CONC 32.4 g/dl (31.0-37.0); MEAN PLATELET VOLUME 13.7 fl (7.0-11.0); MONO # 0.4 (0.1-0.6); MONO % 6.7 % (1.0-6.0); RED CELL DISTRIBUTION WIDTH 13.5 % (11.5-14.5); WHITE BLOOD COUNT 5.5 10^3/ul (4.5-11.0)
[2017-03-23 06:40] LABS: ALB/GLOB RATIO 1.4 (1.1-1.8); ALKALINE PHOSPHATASE 107 U/L (38-126); ALT/SGPT 32 U/L (7-56); AST/SGOT 24 U/L (14-36); BILIRUBIN,TOTAL 0.5 mg/dL (0.2-1.3); BLOOD UREA NITROGEN 9 mg/dL (7-21); CALCIUM 9.7 mg/dL (8.4-10.5); CARBON DIOXIDE 28 mmol/L (21-33); CHLORIDE 104 mmol/L (95-110); GFR AFRICAN-AMERICAN > 60; GLUCOSE,RANDOM 94 mg/dL (70-110); MAGNESIUM 2.1 mg/dL (1.7-2.2); POTASSIUM 4.4 mmol/L (3.6-5.0); SODIUM 142 mmol/L (132-148); TOTAL PROTEIN 6.7 g/dL (5.8-8.3)
[2017-03-23] MEDS: oxyCODONE 80 mg ER Tab (oxyCONTIN) PO SCH (08:31)
[2017-03-23] MEDS: Clotrimazole 1% Vaginal Cream(45 gm) VG SCH (09:56)
[2017-03-23] MEDS: Hydrocortisone 2.5% Rectal Cream(30 gm) PR SCH (09:56)
--- NOTE | 2017-03-23 11:39 | PN ---
DATE: 03/23/2017 REASON FOR CONSULTATION: Rule out chest pain, COPD exacerbation, recurrent admission with chest pain, and negative stress test. SUBJECTIVE: Denies any chest pain now, but complaint of off and on chest pain. PHYSICAL EXAMINATION: GENERAL: Lying flat on the bed, not in apparent distress. VITAL SIGNS: Temperature afebrile, heart rate 61, and blood pressure 100/60. HEENT: PERRLA. Extraocular muscles intact. NECK: Supple. No carotid bruit or thyromegaly. CHEST: Clear to auscultation. HEART: S1 and S2, regular. ABDOMEN: Soft. EXTREMITIES: Clubbing and cyanosis negative. LABORATORY DATA: Blood workup as follows: WBC 5.5, hemoglobin 12.8, hematocrit 39.5, and platelet count 139. Chemistry shows sodium 140, potassium 4.4, chloride 104, carbon dioxide 28, anion gap of 14, BUN 9, and creatinine 0.7. Troponin 0.01 times negative. IMPRESSION AND PLAN: The patient is a 51-year-old female with past medical history significant for chronic obstructive pulmonary disease, active tobacco abuse, anxiety disorder, and admitted with recurrent of the chest pain. At home, the patient is on OxyContin. The patient was admitted with chest pain. The patient's recent noninvasive workup echo dated 09/22/2016 shows normal chamber size, ejection fraction 55%, atrial septal aneurysm with tiny patent foramen ovale, left and right intermittent shunt noted, hemodynamically not significant, trace aortic regurgitation, [id number] mitral regurgitation, mild tricuspid regurgitation, right ventricular systolic pressure 45 mmHg, and trace pulmonary insufficiency dated 09/22/2016. The patient also has stress test dated 09/23/2016 that show essentially normal myocardial perfusion with ejection fraction of 73%. The patient keeps on coming with chest pain, recurrent. I advised the patient cardiac catheterization mentioned in detail yesterday in front of the daughter that is specificity and sensitivity of the stress test is 85%, still the patient can have blockage and since the patient is keep on coming, the best thing is cardiac catheterization. The patient told that she will think and answer today. This morning again, I went there to ask the patient in front of taking care, name Dr. Izquierdo and consulted the patient, though the patient has some drug-seeking behavior and OxyContin and try to manipulate the things sometime, but still she states still thinking. I told the patient if no chest pain, and if she does not want, we can let her go, but still there is a 15% chance, the patient may have the blockage; otherwise, stress test is negative to 100% confirmed that there is no blockage if we do the cardiac catheterization, the patient again was scheduled already for tomorrow at 10:30. Risks, benefits, and alternative explained in detail for the cardiac catheterization, also discussed in detail about the echo finding as the patient states that last time she did not understand the echo finding in patent foramen ovale. We will await for the patient to respond. We will keep n.p.o. tentatively for cardiac catheterization tomorrow. If the patient does not want, the patient can be discharged. We will also discussed with Dr. Rupert Abdi, physician on the record, admitting physician. We will also get 300 Plavix now and Plavix 75 from tomorrow, keep n.p.o. for stress test tomorrow. Rupert Gilliam MD
[2017-03-23 12:13] VITALS: BP 93/67; PULSE 88; RESP 18; TEMP 98.2
--- NOTE | 2017-03-23 13:48 | CP.PCM.DIS ---
<Dusty Og - Last Filed: 03/23/17 13:41> Provider - Provider Date of Admission: 03/21/17 20:59 Attending physician: Rupert Abdi MD Primary care physician: Jacob Clark MD Consults: Cardio - Dr. Lamb/ Dr. Gilliam Time Spent in preparation of Discharge (in minutes): 45 Diagnosis - Discharge Diagnosis (1) Chest pain Status: Resolved (2) Cough Status: Chronic (3) Hemorrhoids Status: Chronic (4) Tobacco abuse Status: Chronic Hospital Course - Lab Results Lab Results: Most Recent Lab Values WBC 5.5 10^3/ul (4.5-11.0) 03/23/17 06:15 RBC 4.17 10^6/uL (3.5-6.1) 03/23/17 06:15 Hgb 12.8 g/dL (12.0-16.0) 03/23/17 06:15 Hct 39.5 % (36.0-48.0) 03/23/17 06:15 MCV 94.7 fl (80.0-105.0) 03/23/17 06:15 MCH 30.7 pg (25.0-35.0) 03/23/17 06:15 MCHC 32.4 g/dl (31.0-37.0) 03/23/17 06:15 RDW 13.5 % (11.5-14.5) 03/23/17 06:15 Plt Count 139 10^3/uL (120.0-450.0) 03/23/17 06:15 MPV 13.7 fl (7.0-11.0) H 03/23/17 06:15 Gran % 60.1 % (50.0-68.0) 03/23/17 06:15 Lymph % (Auto) 27.3 % (22.0-35.0) 03/23/17 06:15 Shelby % (Auto) 6.7 % (1.0-6.0) H 03/23/17 06:15 Eos % (Auto) 5.2 % (1.5-5.0) H 03/23/17 06:15 Baso % (Auto) 0.7 % (0.0-3.0) 03/23/17 06:15 Gran # 3.33 (1.4-6.5) 03/23/17 06:15 Lymph # 1.5 (1.2-3.4) 03/23/17 06:15 Shelby # 0.4 (0.1-0.6) 03/23/17 06:15 Eos # 0.3 (0.0-0.7) 03/23/17 06:15 Baso # 0.04 K/mm3 (0.0-2.0) 03/23/17 06:15 PT 12.8 Seconds (9.9-11.8) H 03/21/17 18:50 INR 1.19 (0.93-1.08) H 03/21/17 18:50 APTT 25.9 Seconds (23.7-30.8) 03/21/17 18:50 Sodium 142 mmol/L (132-148) 03/23/17 06:15 Potassium 4.4 mmol/L (3.6-5.0) 03/23/17 06:15 Chloride 104 mmol/L (95-110) 03/23/17 06:15 Carbon Dioxide 28 mmol/L (21-33) 03/23/17 06:15 Anion Gap 14 (10-20) 03/23/17 06:15 BUN 9 mg/dL (7-21) 03/23/17 06:15 Creatinine 0.7 mg/dL (0.7-1.2) 03/23/17 06:15 Est GFR ( Amer) > 60 03/23/17 06:15 Est GFR (Non-Af Amer) > 60 03/23/17 06:15 Random Glucose 94 mg/dL (70-110) 03/23/17 06:15 Hemoglobin A1c 5.9 % (4.2-6.5) 03/22/17 05:10 Calcium 9.7 mg/dL (8.4-10.5) 03/23/17 06:15 Phosphorus 4.0 mg/dL (2.5-4.5) 03/23/17 06:15 Magnesium 2.1 mg/dL (1.7-2.2) 03/23/17 06:15 Total Bilirubin 0.5 mg/dL (0.2-1.3) 03/23/17 06:15 AST 24 U/L (14-36) 03/23/17 06:15 ALT 32 U/L (7-56) 03/23/17 06:15 Alkaline Phosphatase 107 U/L (38-126) 03/23/17 06:15 Lactate Dehydrogenase 411 U/L (333-699) 03/21/17 18:50 Total Creatine Kinase 55 U/L (35-230) 03/21/17 18:50 Troponin I < 0.01 ng/mL 03/22/17 10:50 Total Protein 6.7 g/dL (5.8-8.3) 03/23/17 06:15 Albumin 4.0 g/dL (3.0-4.8) 03/23/17 06:15 Globulin 2.8 gm/dL 03/23/17 06:15 Albumin/Globulin Ratio 1.4 (1.1-1.8) 03/23/17 06:15 Triglycerides 91 mg/dL (35-160) 03/22/17 05:10 Cholesterol 117 mg/dL (130-200) L 03/22/17 05:10 LDL Cholesterol Direct 80 mg/dL (0-129) 03/22/17 05:10 HDL Cholesterol 30 mg/dL (29-60) 03/22/17 05:10 TSH 3rd Generation 1.42 mIU/mL (0.46-4.68) 03/22/17 05:10 - Hospital Course Hospital Course: 51 y/o F with PMH of COPD, anxiety, 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 Pt was admitted for atypical chest pain, r/o ACS. Troponins negative x 3 and pt had chest CTA showing no signs of PE. Pt was seen by Cardiology who recommended possible cardiac catheterization, although patient had a negative stress test earlier in the year. Ultimately, patient decided against the procedure. Pt will follow up with Cardiology outpatient to discuss further treatment options. Pt follow up with PMD within 1 week. Discharge Exam - Head Exam Head Exam: ATRAUMATIC, NORMAL INSPECTION, NORMOCEPHALIC - Respiratory Exam Respiratory Exam: NORMAL BREATHING PATTERN, UNREMARKABLE - Cardiovascular Exam Cardiovascular Exam: RRR, +S1, +S2 - GI/Abdominal Exam GI & Abdominal Exam: Normal Bowel Sounds, Soft. absent: Tenderness - Extremities Exam Extremities exam: normal inspection - Neurological Exam Neurological exam: Alert, CN II-XII Intact, Oriented x3 - Psychiatric Exam Psychiatric exam: Normal Affect, Normal Mood - Skin Skin Exam: Intact, Normal Color, Warm Discharge Plan - Discharge Medications Prescriptions: Aspirin [Aspirin Chewable] 81 mg PO DAILY #7 chew - Follow Up Plan Condition: GOOD Disposition: HOME/ ROUTINE Instructions: Chest Pain (DC), How to Stop Smoking (DC), Chronic Pain (DC) Additional Instructions: Follow up with PMD within 1 week. Follow up with Dr. Lamb outpatient to discuss further options for cardiac catheterization supervisor curing room prescriptions at [facility] pharmacy Referrals: Jacob Clark MD [Primary Care Provider] - <Rupert Abdi - Last Filed: 03/23/17 15:38> Provider - Provider Date of Admission: 03/21/17 20:59 Attending physician: Rupert Abdi MD Primary care physician: Jacob Clark MD Hospital Course - Lab Results Lab Results: Most Recent Lab Values WBC 5.5 10^3/ul (4.5-11.0) 03/23/17 06:15 RBC 4.17 10^6/uL (3.5-6.1) 03/23/17 06:15 Hgb 12.8 g/dL (12.0-16.0) 03/23/17 06:15 Hct 39.5 % (36.0-48.0) 03/23/17 06:15 MCV 94.7 fl (80.0-105.0) 03/23/17 06:15 MCH 30.7 pg (25.0-35.0) 03/23/17 06:15 MCHC 32.4 g/dl (31.0-37.0) 03/23/17 06:15 RDW 13.5 % (11.5-14.5) 03/23/17 06:15 Plt Count 139 10^3/uL (120.0-450.0) 03/23/17 06:15 MPV 13.7 fl (7.0-11.0) H 03/23/17 06:15 Gran % 60.1 % (50.0-68.0) 03/23/17 06:15 Lymph % (Auto) 27.3 % (22.0-35.0) 03/23/17 06:15 Shelby % (Auto) 6.7 % (1.0-6.0) H 03/23/17 06:15 Eos % (Auto) 5.2 % (1.5-5.0) H 03/23/17 06:15 Baso % (Auto) 0.7 % (0.0-3.0) 03/23/17 06:15 Gran # 3.33 (1.4-6.5) 03/23/17 06:15 Lymph # 1.5 (1.2-3.4) 03/23/17 06:15 Shelby # 0.4 (0.1-0.6) 03/23/17 06:15 Eos # 0.3 (0.0-0.7) 03/23/17 06:15 Baso # 0.04 K/mm3 (0.0-2.0) 03/23/17 06:15 PT 12.8 Seconds (9.9-11.8) H 03/21/17 18:50 INR 1.19 (0.93-1.08) H 03/21/17 18:50 APTT 25.9 Seconds (23.7-30.8) 03/21/17 18:50 Sodium 142 mmol/L (132-148) 03/23/17 06:15 Potassium 4.4 mmol/L (3.6-5.0) 03/23/17 06:15 Chloride 104 mmol/L (95-110) 03/23/17 06:15 Carbon Dioxide 28 mmol/L (21-33) 03/23/17 06:15 Anion Gap 14 (10-20) 03/23/17 06:15 BUN 9 mg/dL (7-21) 03/23/17 06:15 Creatinine 0.7 mg/dL (0.7-1.2) 03/23/17 06:15 Est GFR ( Amer) > 60 03/23/17 06:15 Est GFR (Non-Af Amer) > 60 03/23/17 06:15 Random Glucose 94 mg/dL (70-110) 03/23/17 06:15 Hemoglobin A1c 5.9 % (4.2-6.5) 03/22/17 05:10 Calcium 9.7 mg/dL (8.4-10.5) 03/23/17 06:15 Phosphorus 4.0 mg/dL (2.5-4.5) 03/23/17 06:15 Magnesium 2.1 mg/dL (1.7-2.2) 03/23/17 06:15 Total Bilirubin 0.5 mg/dL (0.2-1.3) 03/23/17 06:15 AST 24 U/L (14-36) 03/23/17 06:15 ALT 32 U/L (7-56) 03/23/17 06:15 Alkaline Phosphatase 107 U/L (38-126) 03/23/17 06:15 Lactate Dehydrogenase 411 U/L (333-699) 03/21/17 18:50 Total Creatine Kinase 55 U/L (35-230) 03/21/17 18:50 Troponin I < 0.01 ng/mL 03/22/17 10:50 Total Protein 6.7 g/dL (5.8-8.3) 03/23/17 06:15 Albumin 4.0 g/dL (3.0-4.8) 03/23/17 06:15 Globulin 2.8 gm/dL 03/23/17 06:15 Albumin/Globulin Ratio 1.4 (1.1-1.8) 03/23/17 06:15 Triglycerides 91 mg/dL (35-160) 03/22/17 05:10 Cholesterol 117 mg/dL (130-200) L 03/22/17 05:10 LDL Cholesterol Direct 80 mg/dL (0-129) 03/22/17 05:10 HDL Cholesterol 30 mg/dL (29-60) 03/22/17 05:10 TSH 3rd Generation 1.42 mIU/mL (0.46-4.68) 03/22/17 05:10 Attending/Attestation - Attestation I have personally seen and examined this patient.: Yes I have fully participated in the care of the patient.: Yes I have reviewed all pertinent clinical information, including history, physical exam and plan: Yes Notes (Text): 03/23/17 15:34 Patient was seen and examined with medical assembler. Agreed with resident assessment and plan. 51 yrs old female with PMH of COPD, anxiety, pelvic congestion syndrome ?, opiate abuse/dependence, neuropathy, herniated disc, sciatica, was admitted with atypical chest pain, EKG was negative for acute ischemic changes, has chest wall tenderness, serial troponins were normal.Patient had recent negative stress test.She was evaluated by cardiology, cardiac cath was offered but patient has refused.She has PFO and will be discharged home on Aspirin 81mg po daily. Management plan was discussed in detail with patient and daughter who was at bed side. Education was provided.
--- NOTE | 2017-03-23 19:21 | PN ---
ADDENDUM The patient was scheduled for cardiac catheterization after a lengthy discussion done, though the patient had normal stress test but given the multiple admissions with the chest pain, though the patient has some element of drug seeking behavior as well as because the patient is on OxyContin. I mentioned to the patient that specifically sensitivity of the stress test is 85%. There is 15% chance that the patient may have blockage and cannot be picked up in the stress test, so the patient agreed philosophically, but later on this morning he told us ultimately and refused and does not want the cardiac catheterization. I discussed with Dr. Rupert Abdi who is attending sports nutritionist, and after lengthy discussion, the patient decided to go home and cancel the stress test, so we will cancel the stress test for tomorrow, cancel Plavix which was started anticipating for possible cath, possible PTCA. For now continue aggressive medical treatment. Further recommendation and treatment as per Dr. Aquino. Rupert Gilliam MD
--- NOTE | 2017-03-24 10:27 | CARD ---
APPROVED REPORT EKG Measurement Heart [id number] CO 114P78 [id number] <Conclusion> Normal sinus rhythm with sinus arrhythmia Normal ECG
== END 2017-03-23 15:01 | disposition home or self-care (01) ==
LOC: ED 18:33 → ERH 20:59 → 2RNO 23:37
PROVIDERS: ADMIT Hospitalist; ATTEND Internal Medicine
DX: J44.1 Chronic obstructive pulmonary disease with (acute) exacerbation (principal); R07.89 Other chest pain; F11.10 Opioid abuse, uncomplicated; I10 Essential (primary) hypertension; F41.9 Anxiety disorder, unspecified; N76.0 Acute vaginitis; M54.30 Sciatica, unspecified side; G62.9 Polyneuropathy, unspecified; M41.9 Scoliosis, unspecified; F17.210 Nicotine dependence, cigarettes, uncomplicated; K64.9 Unspecified hemorrhoids; Q21.1 Atrial septal defect; Z88.0 Allergy status to penicillin
CPT/HCPCS: 36415; 71010; 71275; 80053; 80061; 82550; 83036; 83615; 83735; 84100; 84443; 84484; 85025; 85610; 85730; 93005; 94640; 94760; 96361; 96374; 96375; 99285; G0378; J1170; J1885; J2405; J3480; Q9967

== ENCOUNTER 2017-06-06 17:57 | Emergency (ER) | payer MEDICAID ==
[2017-06-06 17:58] VITALS: BMI 18.8
[2017-06-06 18:20] VITALS: TEMP 98
--- NOTE | 2017-06-06 18:37 | ED PDOC ---
Arrival/HPI - General Chief Complaint: Abdominal Pain Time Seen by Provider: 06/06/17 18:20 Historian: Patient - History of Present Illness Narrative History of Present Illness (Text): 06/06/17 18:34 51 year old female, whose history includes ovarian cyst, and COPD, presents to the Emergency department complaining of abdominal pain for 2 days. Pain is constant but worsened with food and bowel movements. Patient states her bowel movements have been regular. Patient denies any nausea, vomiting, diarrhea, constipation, dysuria, hematuria, frequency, vaginal bleeding, fever, chills, chest pain, shortness of breath, back pain, neck pain, headache, dizziness, or any other complaints. Time/Duration: Other (2 days) Symptom Onset: Gradual Symptom Course: Unchanged Context: Home Past Medical History - Provider Review Nursing Documentation Reviewed: Yes - Infectious Disease Hx of Infectious Diseases: None - Tetanus Immunization Tetanus Immunization: Unknown - Cardiac Hx Cardiac Disorders: No - Pulmonary Hx Bronchitis: Yes Hx Chronic Obstructive Pulmonary Disease (COPD): Yes - Neurological Hx Neurological Disorder: No - HEENT Hx HEENT Disorder: Yes (eyeglasses) - Renal Hx Renal Disorder: No - Endocrine/Metabolic Hx Endocrine Disorders: No - Hematological/Oncological Hx Blood Disorders: No - Integumentary Hx Dermatological Disorder: Yes Other/Comment: multiple skin discolorations - Musculoskeletal/Rheumatological Hx Arthritis: Yes - Gastrointestinal Hx Gastrointestinal Disorders: Yes (CONSTIPATION) Other/Comment: ABD PAIN - Genitourinary/Gynecological Hx Genitourinary Disorders: Yes Other/Comment: OVARIAN CYSTS REMOVED - Psychiatric Hx Anxiety: Yes Hx Depression: Yes Hx Substance Use: No - Surgical History Hx Appendectomy: (pt denies) - Anesthesia Hx Anesthesia: Yes Hx Anesthesia Reactions: No - Suicidal Assessment Feels Threatened In Home Enviroment: No Family/Social History - Physician Review Nursing Documentation Reviewed: Yes Family/Social History: Unknown Family HX Smoking Status: Light Smoker < 10 Cigarettes Daily Hx Alcohol Use: No Hx Substance Use: No Hx Substance Use Treatment: No Allergies/Home Meds Allergies/Adverse Reactions: Allergies hydroxyzine Allergy (Severe, Verified 06/06/17 18:17) FATIGUE Penicillins Allergy (Verified 06/06/17 18:17) RASH Home Medications: Home Meds Medication Instructions Recorded Confirmed Oxycodone HCl [Oxycontin] 80 mg PO BID 02/04/1618 oxyCODONE [oxyCODONE Immediate 30 mg PO BID PRN 02/04/16 06/06/17 Release Tab] Alprazolam 1 mg PO DAILY 11/13/16 06/06/17 Review of Systems - Physician Review All systems were reviewed & negative as marked: Yes - Review of Systems Constitutional: absent: Fevers, Night Sweats Respiratory: absent: SOB, Cough, Sputum, Wheezing Cardiovascular: absent: Chest Pain Gastrointestinal: Abdominal Pain. absent: Stool Changes, Constipation, Diarrhea , Nausea, Vomiting Genitourinary Female: Normal. absent: Dysuria, Frequency, Hematuria, Urine Output Changes, Vaginal Bleeding, Vaginal Discharge Neurological: absent: Headache, Dizziness Physical Exam Vital Signs Reviewed: Yes Vital Signs Temp Pulse Resp BP Pulse Ox 06/06/17 22:08 70 16 124/87 97 06/06/17 18:19 98.0 F 79 18 120/75 99 Temperature: Afebrile Blood Pressure: Normal Pulse: Regular Respiratory Rate: Normal Appearance: Positive for: Well-Appearing, Non-Toxic, Comfortable Pain Distress: None Mental Status: Positive for: Alert and Oriented X 3 - Systems Exam Head: Present: Atraumatic, Normocephalic Pupils: Present: PERRL Extroacular Muscles: Present: EOMI Conjunctiva: Present: Normal Mouth: Present: Moist Mucous Membranes Neck: Present: Normal Range of Motion Respiratory/Chest: Present: Clear to Auscultation, Good Air Exchange. No: Respiratory Distress, Accessory Muscle Use Cardiovascular: Present: Regular Rate and Rhythm, Normal S1, S2. No: Murmurs Abdomen: Present: Normal Bowel Sounds. No: Tenderness, Distention, Peritoneal Signs, Rebound, Guarding, McBurney's Point Tender, Rovsing's Sign Present, Mass/ Organomegaly Back: Present: Normal Inspection Upper Extremity: Present: Normal Inspection. No: Cyanosis, Edema Lower Extremity: Present: Normal Inspection. No: Edema Neurological: Present: GCS=15, CN II-XII Intact, Speech Normal Skin: Present: Warm, Dry, Normal Color. No: Rashes Psychiatric: Present: Alert, Oriented x 3, Normal Insight, Normal Concentration Medical Decision Making ED Course and Treatment: 06/06/17 18:43 Impression: 51 year old female presents to the Emergency department complaining of abdominal pain. Plan: -- CT scan of the abdomen and pelvis -- Labs -- Urinalysis -- Toradol, IV fluids -- Reassess and disposition Progress Notes: Report Date : 06/06/2017 21:09:00 EXAM: CT Abdomen and Pelvis With Intravenous Contrast Dictated By: Jose Farrell MD IMPRESSION: 1. No definite acute intraabdominal abnormality. 2. Liver lesion. For patients with low to average risk of malignancy, no further follow-up is necessary. For patients with high risk of malignancy, recommend follow-up abdominal CT or MR in 6 months or multiphasic MR. 3. Incidental/non-acute findings are described above. 06/06/17 22:41 Patient reports that she feels better. She is tolerating po. Made aware of incidental findings and will follow-up - Lab Interpretations Lab Results: 06/06/17 19:05 06/06/17 19:05 Lab Results 06/06/17 19:05: WBC 5.2, RBC 4.39, Hgb 13.7, Hct 41.6, MCV 94.8, MCH 31.2, MCHC 32.9, RDW 12.9, Plt Count 145, MPV 12.9 H, Gran % 63.0, Lymph % (Auto) 30.3, [place] % (Auto) 4.7, Eos % (Auto) 1.4 L, Baso % (Auto) 0.6, Gran # 3.25, Lymph # 1.6, Pickett # 0.2, Eos # 0.1, Baso # 0.03 06/06/17 19:05: Sodium 140, Potassium 3.8, Chloride 104, Carbon Dioxide 26, Anion Gap 14, BUN 5 L, Creatinine 0.8, Est GFR ( Amer) > 60, Est GFR (Non -Af Amer) > 60, Random Glucose 82, Calcium 9.6, Phosphorus 3.9, Magnesium 1.7, Total Bilirubin 0.5, AST 25, ALT 26, Alkaline Phosphatase 121, Total Protein 7.7 , Albumin 4.3, Globulin 3.4, Albumin/Globulin Ratio 1.3, Lipase 19 L 06/06/17 19:00: Urine Color Yellow, Urine Appearance Clear, Urine pH 6.5, Ur Specific [place] <= 1.005, Urine Protein Negative, Urine Glucose (UA) Negative, Urine Ketones Negative, Urine Blood Negative, Urine Nitrate Negative, Urine Bilirubin Negative, Urine Urobilinogen 0.2, Ur Leukocyte Esterase Negative - RAD Interpretation Radiology Orders: 06/06/17 18:41 ABD PELVIS PO & IV CONTRAST [CT] Stat - Medication Orders Current Medication Orders: Discontinued Medications Sodium Chloride (Sodium Chloride 0.9%) 1,000 mls @ 999 mls/hr IV .Q1H1M STA Stop: 06/06/17 19:43 Last Admin: 06/06/17 19:11 Dose: 999 mls/hr eMAR Start Stop Document 06/06/17 19:11 HI (Rec: 06/06/17 19:28 [id number]) Intravenous Solution Start Date 06/06/17 Start Time 19:11 Ketorolac Tromethamine (Toradol) 30 mg IVP STAT STA Stop: 06/06/17 18:44 Last Admin: 06/06/17 19:11 Dose: 30 mg MAR Pain Assessment Document 06/06/17 19:11 HI (Rec: 06/06/17 19:28 [id number]) Pain Reassessment Is this a pain reassessment? No Sleep Is patient sleeping during reassessment? No Presence of Pain Presence of Pain Yes Location Pain Location Body Site Abdomen IVP Administration Document 06/06/17 19:11 HI (Rec: 06/06/17 19:28 [id number]) Charges for Administration # of IVP Administrations 1 Re-Assess: MAR Pain Assessment Document 06/06/17 20:11 HI (Rec: 06/06/17 20:54 [id number]) Pain Reassessment Is this a pain reassessment? Yes Sleep Is patient sleeping during reassessment? No Presence of Pain Presence of Pain No - Scribe Statement The provider has reviewed the documentation as recorded by the Scribe Roque Lomax All medical record entries made by the Kobyibkellen were at my direction and personally dictated by me. I have reviewed the chart and agree that the record accurately reflects my personal performance of the history, physical exam, medical decision making, and the department course for this patient. I have also personally directed, reviewed, and agree with the discharge instructions and disposition. Disposition/Present on Arrival - Present on Arrival Any Indicators Present on Arrival: No History of DVT/PE: No History of Uncontrolled Diabetes: No Urinary Catheter: No History of Decub. Ulcer: No History Surgical Site Infection Following: None - Disposition Have Diagnosis and Disposition been Completed?: Yes Diagnosis: Liver lesion, Renal lesion, Abdominal pain Disposition: HOME/ ROUTINE Disposition Time: 22:04 Patient Plan: Discharge Condition: GOOD Additional Instructions: Follow-up with PMD within 2 days. Follow-up for incidental liver and renal lesions found on CT. Return to ED if condition worsens. Referrals: Jacob Clark MD [Primary Care Provider] - Follow up with primary Forms: Dsg.nr (Peruvian)
[2017-06-06] MEDS ORDERED: Sodium Chloride 0.9% 1,000 ML IV STA (18:43)
[2017-06-06] MEDS ORDERED: Iohexol 240 (50 ml) ONE (18:44)
[2017-06-06 19:18] LABS: PH,URINE 6.5 (4.7-8.0); URINE BILIRUBIN NEGATIVE (NEGATIVE); URINE BLOOD NEGATIVE (NEGATIVE); URINE GLUCOSE (UA) NEGATIVE (NEGATIVE); URINE KETONE NEGATIVE (NEGATIVE); URINE LEUKOCYTE ESTERASE NEGATIVE Leu/uL (NEGATIVE); URINE PROTEIN NEGATIVE mg/dL (<30 mg/dL); URINE UROBILINOGEN 0.2 E.U./dL (<1 E.U./dL)
[2017-06-06 19:19] LABS: BASO # 0.03 K/mm3 (0.0-2.0); BASO % 0.6 % (0.0-3.0); EOS # 0.1 (0.0-0.7); EOS % 1.4 % (1.5-5.0); GRAN # 3.25 (1.4-6.5); HEMATOCRIT 41.6 % (36.0-48.0); LYMPH # 1.6 (1.2-3.4); LYMPH % 30.3 % (22.0-35.0); MEAN CELL VOLUME 94.8 fl (80.0-105.0); MEAN CORPUSCULAR HEMOGLOBIN 31.2 pg (25.0-35.0); MEAN CORPUSCULAR HGB CONC 32.9 g/dl (31.0-37.0); MEAN PLATELET VOLUME 12.9 fl (7.0-11.0); MONO # 0.2 (0.1-0.6); MONO % 4.7 % (1.0-6.0); RED CELL DISTRIBUTION WIDTH 12.9 % (11.5-14.5); WHITE BLOOD COUNT 5.2 10^3/ul (4.5-11.0)
[2017-06-06 19:26] LABS: URINE APPEARANCE CLEAR (CLEAR); URINE COLOR YELLOW (YELLOW)
[2017-06-06 19:27] LABS: ALB/GLOB RATIO 1.3 (1.1-1.8); ALKALINE PHOSPHATASE 121 U/L (38-126); ALT/SGPT 26 U/L (7-56); AST/SGOT 25 U/L (14-36); BILIRUBIN,TOTAL 0.5 mg/dL (0.2-1.3); BLOOD UREA NITROGEN 5 mg/dL (7-21); CALCIUM 9.6 mg/dL (8.4-10.5); CARBON DIOXIDE 26 mmol/L (21-33); CHLORIDE 104 mmol/L (98-107); GFR AFRICAN-AMERICAN > 60; GLUCOSE,RANDOM 82 mg/dL (70-110); LIPASE 19 U/L (23-300); MAGNESIUM 1.7 mg/dL (1.7-2.2); PHOSPHOROUS 3.9 mg/dL (2.5-4.5); POTASSIUM 3.8 mmol/L (3.6-5.0); SODIUM 140 mmol/L (132-148); TOTAL PROTEIN 7.7 g/dL (5.8-8.3)
[2017-06-06] MEDS ORDERED: Iohexol 350 MG/100 ML VIAL ONE (20:05)
--- NOTE | 2017-06-06 21:09 | CT ---
EXAM: CT Abdomen and Pelvis With Intravenous Contrast CLINICAL HISTORY: 51 years old, female; Signs and symptoms; Bloating and nausea; Additional info: Vomiting, HX of sbo TECHNIQUE: Axial computed tomography images of the abdomen and pelvis with intravenous contrast. All CT scans at this facility use one or more dose reduction techniques, viz.: automated exposure control; ma/kV adjustment per patient size (including targeted exams where dose is matched to indication; i.e. head); or iterative reconstruction technique. Coronal and sagittal reformatted images were created and reviewed. CONTRAST: 100 mL of OMNI administered intravenously. COMPARISON: CT - ABD PELVIS W/O PO OR IV CONT 2016-11-13 02:16 FINDINGS: Lower thorax: Mild atelectasis/scarring. ABDOMEN: Liver: 0.6 cm lesion with flash filling enhancement. Gallbladder and bile ducts: No calcified stones. No ductal dilation. Pancreas: No ductal dilation. No mass. Spleen: No splenomegaly. Adrenals: No mass. Kidneys and ureters: Few too small to characterize lesions within kidneys. No hydronephrosis. Stomach and bowel: No definite mural thickening. No obstruction. Appendix: Normal caliber. No inflammation. PELVIS: Bladder: Distended bladder. Reproductive: Unremarkable as visualized. ABDOMEN and PELVIS: Intraperitoneal space: No significant fluid collection. No free air. Bones/joints: No acute fracture. Soft tissues: Unremarkable. Vasculature: Mildly prominent vessels within pelvis. Mild atherosclerotic disease. No aneurysm. Lymph nodes: No pathologically enlarged lymph nodes. IMPRESSION: 1. No definite acute intraabdominal abnormality. 2. Liver lesion. For patients with low to average risk of malignancy, no further follow-up is necessary. For patients with high risk of malignancy, recommend follow-up abdominal CT or MR in 6 months or multiphasic MR. 3. Incidental/non-acute findings are described above.
[2017-06-06 22:18] VITALS: BP 124/87; PULSE 70; RESP 16; O2SAT 97
== END 2017-06-06 22:08 | disposition home or self-care (01) ==
LOC: ED 17:57
DX: K76.9 Liver disease, unspecified (principal); N28.9 Disorder of kidney and ureter, unspecified; R10.9 Unspecified abdominal pain
CPT/HCPCS: 74177; 80053; 81003; 83690; 83735; 84100; 85025; 96374; 99284; J1885; J7040; Q9966; Q9967

== ENCOUNTER 2017-08-03 19:48 | Emergency (ER) | payer MEDICAID ==
[2017-08-03 19:48] VITALS: BMI 18.8
[2017-08-03 20:03] VITALS: RESP 18; TEMP 98.1
[2017-08-03] MEDS ORDERED: Atrop/Hyosc/Scopal/PB Elixir (120 ml) PO STA (20:41)
[2017-08-03] MEDS ORDERED: Alum-Mag Hydrox-Simethicone Susp (30 mL) PO STA (20:41)
[2017-08-03] MEDS ORDERED: Sodium Chloride 0.9% 1,000 ML IV STA ×2 (20:41→21:50)
[2017-08-03] MEDS ORDERED: Famotidine 20mg/50ml 20 MG/50 ML BAG IVPB STA (20:42)
--- NOTE | 2017-08-03 20:47 | ED PDOC ---
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 Patient notes her pain is exacerbated after eating. She reports taking Protonix once a day, with no relief of symptom. Patient denies any fever, chills , nausea, vomiting, diarrhea, constipation, chest pain, shortness of breath or any other complaints. 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 Guerrier Time/Duration: Other (4 days) Quality: Other Context: Home Past Medical History - Provider Review Nursing Documentation Reviewed: Yes - Infectious Disease Hx of Infectious Diseases: None - Tetanus Immunization Tetanus Immunization: Unknown - Cardiac Hx Cardiac Disorders: No - Pulmonary Hx Respiratory Disorders: Yes Hx Bronchitis: Yes Hx Chronic Obstructive Pulmonary Disease (COPD): Yes - Neurological Hx Neurological Disorder: No - HEENT Hx HEENT Disorder: Yes (eyeglasses) - Renal Hx Renal Disorder: No - Endocrine/Metabolic Hx Endocrine Disorders: No - Hematological/Oncological Hx Blood Disorders: No - Integumentary Hx Dermatological Disorder: Yes - Musculoskeletal/Rheumatological Hx Musculoskeletal Disorders: Yes Hx Arthritis: Yes - Gastrointestinal Hx Gastrointestinal Disorders: Yes (CONSTIPATION) Other/Comment: ABD PAIN - Genitourinary/Gynecological Hx Genitourinary Disorders: Yes Other/Comment: OVARIAN CYSTS REMOVED - Psychiatric Hx Psychophysiologic Disorder: Yes Hx Anxiety: Yes Hx Depression: Yes Hx Substance Use: No - Surgical History Hx Appendectomy: (pt denies) Hx Tubal Ligation: Yes Other/Comment: COLONOSCOPY, OVARIAN CYST REMOVED - Anesthesia Hx Anesthesia: Yes - Suicidal Assessment Feels Threatened In Home Enviroment: No Family/Social History - Physician Review Nursing Documentation Reviewed: Yes Family/Social History: No Known Family HX Smoking Status: Heavy Smoker > 10 Cigarettes Daily Hx Alcohol Use: No Hx Substance Use: No Hx Substance Use Treatment: No Allergies/Home Meds Allergies/Adverse Reactions: Allergies hydroxyzine Allergy (Severe, Verified 08/03/17 19:58) FATIGUE Penicillins Allergy (Verified 08/03/17 19:58) RASH Home Medications: Home Meds Medication Instructions Recorded Confirmed Oxycodone HCl [Oxycontin] 80 mg PO BID 02/04/16 08/03/17 oxyCODONE [oxyCODONE Immediate 30 mg PO BID PRN 02/04/16 08/03/17 Release Tab] Alprazolam 1 mg PO DAILY 11/13/16 08/03/17 Pantoprazole Sodium [Protonix] 40 mg PO DAILY 08/03/17 08/03/17 Review of Systems - Physician Review All systems were reviewed & negative as marked: Yes - Review of Systems Constitutional: absent: Fevers, Night Sweats Respiratory: absent: SOB Cardiovascular: absent: Chest Pain Gastrointestinal: Abdominal Pain. absent: Constipation, Diarrhea, Nausea, Vomiting Physical Exam Vital Signs Reviewed: Yes Vital Signs Temp Pulse Resp BP Pulse Ox 08/03/17 22:09 85 18 102/66 100 08/03/17 20:02 98.1 F 97 H 18 105/72 93 L Temperature: Afebrile Blood Pressure: Normal Pulse: Tachycardic Respiratory Rate: Normal Appearance: Positive for: Well-Appearing, Non-Toxic, Comfortable Pain Distress: None Mental Status: Positive for: Alert and Oriented X 3 - Systems Exam Head: Present: Atraumatic, Normocephalic Pupils: Present: PERRL Extroacular Muscles: Present: EOMI Conjunctiva: Present: Normal Mouth: Present: Moist Mucous Membranes Neck: Present: Normal Range of Motion Respiratory/Chest: Present: Clear to Auscultation, Good Air Exchange. No: Respiratory Distress, Accessory Muscle Use Cardiovascular: Present: Regular Rate and Rhythm, Normal S1, S2. No: Murmurs Abdomen: Present: Tenderness (Epigastric tenderness to palpation), Normal Bowel Sounds, Guarding. No: Distention, Peritoneal Signs, Rebound Rectal: Present: Other (Exam performed by me and chaperoned by scribe). No: Occult Blood, Rectal Tenderness, Gross Blood, Hemorrhoids, Fissures Back: Present: Normal Inspection Upper Extremity: Present: Normal Inspection. No: Cyanosis, Edema Lower Extremity: Present: Normal Inspection. No: Edema Neurological: Present: GCS=15, CN II-XII Intact, Speech Normal Skin: Present: Warm, Dry, Normal Color. No: Rashes Psychiatric: Present: Alert, Oriented x 3, Normal Insight, Normal Concentration Medical Decision Making ED Course and Treatment: 08/03/17 20:42 Impression: A 52 year old female with abdominal pain Differential Diagnosis included but are not limited to: Gastritis vs. Constipation Plan: -- Chest xray -- Labs -- Urinalysis -- Maalox, , Lidocaine, Pepcid and IV fluids -- Reassess and disposition Progress Notes: 08/03/17 11:49 On reevaluation, patient felt much better. She appeared more hydrated and awake. Her abdomen was soft, NT and ND. AXR and CXR were normal. There was no evidence of obstruction. She is tolerating adequate PO fluids in the ED and appears very comfortable. Her daughter is with her and I explained discharge planning with both of them. She has a GI specialist Dr. Guerrier that she sees as an outpatient. - Lab Interpretations Lab Results: 08/03/17 21:00 08/03/17 21:20 Lab Results 08/03/17 21:20: Sodium 142, Potassium 3.4 L, Chloride 102, Carbon Dioxide 29, Anion Gap 14, BUN 5 L, Creatinine 0.7, Est GFR ( Amer) > 60, Est GFR (Non -Af Amer) > 60, Random Glucose 80, Calcium 9.4, Total Bilirubin 0.5, AST 25, ALT 25, Alkaline Phosphatase 109, Total Protein 7.0, Albumin 3.9, Globulin 3.1, Albumin/Globulin Ratio 1.3, Lipase 31 08/03/17 21:05: Urine Color Yellow, Urine Appearance Clear, Urine pH 7.0, Ur Specific [place] <= 1.005, Urine Protein Negative, Urine Glucose (UA) Negative, Urine Ketones Negative, Urine Blood Trace-lysed H, Urine Nitrate Negative, Urine Bilirubin Negative, Urine Urobilinogen 0.2, Ur Leukocyte Esterase Negative , Urine RBC 1 - 3, Urine WBC 0 - 2, Ur Epithelial Cells 1 - 3, Urine Bacteria Small 08/03/17 21:00: WBC 5.1, RBC 4.45, Hgb 13.8, Hct 41.9, MCV 94.2, MCH 31.0, MCHC 32.9, RDW 13.4, Plt Count 152, MPV 13.1 H, Gran % 52.5, Lymph % (Auto) 39.8 H, [place] % (Auto) 5.5, Eos % (Auto) 1.4 L, Baso % (Auto) 0.8, Gran # 2.67, Lymph # ( Auto) 2.0, [place] # (Auto) 0.3, Eos # (Auto) 0.1, Baso # (Auto) 0.04 I have reviewed the lab results: Yes - RAD Interpretation Radiology Orders: 08/03/17 20:43 CXR [CHEST TWO VIEWS (PA/LAT)] [RAD] Stat 08/03/17 22:27 ABD 2 VIEWS (FLAT/UP OR DECUB) [RAD] Stat - Medication Orders Current Medication Orders: Discontinued Medications Al Hydrox/Mg Hydrox/Simethicone (Maalox Plus 30 Ml) 30 ml PO STAT STA Stop: 08/03/17 20:42 Last Admin: 08/03/17 21:26 Dose: 30 ml Belladonna/Phenobarbital ( Elixir) 5 ml PO STAT STA Stop: 08/03/17 20:42 Last Admin: 08/03/17 21:26 Dose: 5 ml Famotidine (Pepcid 20mg/50ml Premix) 20 mg in 50 mls @ 100 mls/hr IVPB STAT STA Stop: 08/03/17 21:11 Last Admin: 08/03/17 21:26 Dose: 100 mls/hr eMAR Start Stop Document 08/03/17 21:26 CNR (Rec: 08/03/17 21:26 CNR [id number]) Intravenous Solution Start Date 08/03/17 Start Time 21:26 End Date 08/03/17 End time 21:56 Total Infusion Time 30 Sodium Chloride (Sodium Chloride 0.9%) 1,000 mls @ 999 mls/hr IV .Q1H1M STA Stop: 08/03/17 21:41 Last Admin: 08/03/17 21:25 Dose: 999 mls/hr eMAR Start Stop Document 08/03/17 21:25 CNR (Rec: 08/03/17 21:25 CNR [id number]) Intravenous Solution Start Date 08/03/17 Start Time 21:25 Sodium Chloride (Sodium Chloride 0.9%) 1,000 mls @ 999 mls/hr IV .Q1H1M STA Stop: 08/03/17 22:50 Last Admin: 08/03/17 22:37 Dose: 999 mls/hr eMAR Start Stop Document 08/03/17 22:37 CNR (Rec: 08/03/17 22:37 CNR [id number]) Intravenous Solution Start Date 08/03/17 Start Time 22:37 Lidocaine HCl (Lidocaine 2% Viscous) 15 ml PO STAT STA Stop: 08/03/17 20:42 Last Admin: 08/03/17 21:26 Dose: 15 ml Lorazepam (Ativan) 1 mg IVP ONCE ONE PRN Reason: Protocol Stop: 08/03/17 22:29 Last Admin: 08/03/17 22:36 Dose: 1 mg IVP Administration Document 08/03/17 22:36 CNR (Rec: 08/03/17 22:36 CNR [id number]) Charges for Administration # of IVP Administrations 1 Potassium Chloride (K-Dur 20 Meq Er Tab) 40 meq PO STAT STA Stop: 08/03/17 21:51 Last Admin: 08/03/17 22:36 Dose: 40 meq - Scribe Statement The provider has reviewed the documentation as recorded by the Jeronimo Davenport Provider Scribe Attestation: All medical record entries made by the Scribe were at my direction and personally dictated by me. I have reviewed the chart and agree that the record accurately reflects my personal performance of the history, physical exam, medical decision making, and the department course for this patient. I have also personally directed, reviewed, and agree with the discharge instructions and disposition. Disposition/Present on Arrival - Present on Arrival Any Indicators Present on Arrival: No History of DVT/PE: No History of Uncontrolled Diabetes: No Urinary Catheter: No History of Decub. Ulcer: No History Surgical Site Infection Following: None - Disposition Have Diagnosis and Disposition been Completed?: Yes Diagnosis: Abdominal pain Disposition: HOME/ ROUTINE Disposition Time: 11:45 Patient Plan: Discharge Condition: IMPROVED Discharge Instructions (ExitCare): Acute Abdominal Pain (ED) Additional Instructions: Ms Phipps, thank you for letting us take care of you today. Your provider was Dr. Will. You were treated for Abdominal Pain. The emergency medical care you received today was directed at your acute symptoms. If you were prescribed any medication, please fill it and take as directed. It may take several days for your symptoms to resolve. Return to the Emergency Department if your symptoms worsen, do not improve, or if you have any other problems. Please contact your doctor or call one of the physicians/clinics you have been referred to that are listed on the Patient Visit Information form that is included in your discharge packet. Bring any paperwork you were given at discharge with you along with any medications you are taking to your follow up visit. Our treatment cannot replace ongoing medical care by a primary care provider (PCP) outside of the emergency department. Thank you for allowing the [facility] team to be part of your care today. If you had an X-Ray or CT scan: A Radiologist will review the ED reading if any change in treatment is needed we will contact you. If you had a blood, urine, or wound culture: It will take several days for the results, if any change in treatment is needed we will contact you. If you had an STI test: It will take 48 hours for the results. Please call after 1 week if you have not heard back. Prescriptions: Ranitidine HCl [Zantac] 150 mg PO BID PRN #30 tablet PRN Reason: Pain, Mild (1-3) Referrals: Derian Guerrier MD [Medical Doctor] - Follow up with primary Bettye More APN [Primary Care Provider] - Follow up with primary Forms: [employer] ([place] Zealander), WORK NOTE
[2017-08-03 21:28] LABS: BASO # 0.04 K/mm3 (0.0-2.0); BASO % 0.8 % (0.0-3.0); EOS # 0.1 (0.0-0.7); EOS % 1.4 % (1.5-5.0); GRAN # 2.67 (1.4-6.5); GRAN % 52.5 % (50.0-68.0); HEMOGLOBIN 13.8 g/dL (12.0-16.0); LYMPH % 39.8 % (22.0-35.0); MEAN CELL VOLUME 94.2 fl (80.0-105.0); MEAN CORPUSCULAR HGB CONC 32.9 g/dl (31.0-37.0); MEAN PLATELET VOLUME 13.1 fl (7.0-11.0); MONO # 0.3 (0.1-0.6); MONO % 5.5 % (1.0-6.0); RBC 4.45 10^6/uL (3.5-6.1); RED CELL DISTRIBUTION WIDTH 13.4 % (11.5-14.5); WHITE BLOOD COUNT 5.1 10^3/ul (4.5-11.0)
[2017-08-03 21:28] LABS: URINE BILIRUBIN NEGATIVE (NEGATIVE); URINE BLOOD TRACE-LYSED (NEGATIVE); URINE GLUCOSE (UA) NEGATIVE (NEGATIVE); URINE LEUKOCYTE ESTERASE NEGATIVE Leu/uL (NEGATIVE); URINE NITRATE NEGATIVE (NEGATIVE); URINE PROTEIN NEGATIVE mg/dL (<30 mg/dL); URINE UROBILINOGEN 0.2 E.U./dL (<1 E.U./dL)
[2017-08-03 21:29] LABS: URINE APPEARANCE CLEAR (CLEAR); URINE COLOR YELLOW (YELLOW)
[2017-08-03 21:40] LABS: URINE BACTERIA SMALL (NEG); URINE WBC 0 - 2 /hpf (0-6)
[2017-08-03 21:47] LABS: ALB/GLOB RATIO 1.3 (1.1-1.8); ALBUMIN 3.9 g/dL (3.0-4.8); ALT/SGPT 25 U/L (7-56); AST/SGOT 25 U/L (14-36); BLOOD UREA NITROGEN 5 mg/dL (7-21); CALCIUM 9.4 mg/dL (8.4-10.5); GFR AFRICAN-AMERICAN > 60; GFR NON-AFRICAN AMERICAN > 60; LIPASE 31 U/L (23-300)
[2017-08-03] MEDS ORDERED: Potassium Chloride 20 mEq ER Tab PO STA (21:50)
[2017-08-04 00:28] VITALS: BP 102/66; PULSE 85; O2SAT 100
--- NOTE | 2017-08-04 09:50 | RAD ---
HISTORY: COMPARISON: 03/21/2017. TECHNIQUE: Chest PA and lateral FINDINGS: LINES AND TUBES: None. LUNG AND PLEURA: The lungs are well inflated and clear. HEART AND MEDIASTINUM: The heart is not enlarged. The hilar and mediastinal contours are within normal limits. SKELETAL STRUCTURES: The bony structures are within normal limits for the patient's age. VISUALIZED UPPER ABDOMEN: Normal. OTHER FINDINGS: None. IMPRESSION: No active pulmonary disease.
--- NOTE | 2017-08-04 10:08 | RAD ---
HISTORY: Abdominal pain COMPARISON: 02/24/2017. FINDINGS: BOWEL: The bowel gas pattern is nonobstructive. There is gas in the left hemicolon. BONES: Normal. OTHER FINDINGS: There are few phleboliths in the pelvis. IMPRESSION: Nonobstructive bowel-gas pattern.
== END 2017-08-04 00:08 | disposition home or self-care (01) ==
LOC: ED 19:48
DX: R10.9 Unspecified abdominal pain (principal); J44.9 Chronic obstructive pulmonary disease, unspecified; F17.210 Nicotine dependence, cigarettes, uncomplicated
CPT/HCPCS: 71046; 74019; 80053; 81001; 83690; 85025; 96365; 96375; 99284; J2060; J7040

== ENCOUNTER 2017-09-26 11:31 | Emergency (ER) | payer MEDICAID ==
[2017-09-26 11:32] VITALS: BMI 18.8
[2017-09-26 11:39] VITALS: RESP 18; TEMP 98.6
[2017-09-26] MEDS ORDERED: Alum-Mag Hydrox-Simethicone Susp (30 mL) PO STA (11:57)
--- NOTE | 2017-09-26 11:57 | ED PDOC ---
Arrival/HPI - General Chief Complaint: GI Problem Time Seen by Provider: 09/26/17 11:49 Historian: Patient - History of Present Illness Narrative History of Present Illness (Text): 09/26/17 11:56 A 52 year old female, whose past medical history includes herniated disc disease , permanent nerve damage and sciatica, presents to the emergency department complaining of epigastric abdominal pain for the past few days. Patient reports her pain worsened last night after eating. She reports a normal bowel movement today. Patient notes nausea but denies any fever, chills, vomiting, diarrhea, urinary symptoms, vaginal bleeding or any other complaints. Time/Duration: Other (few days) Symptom Course: Worsening (last night after eating) Context: Home Past Medical History - Provider Review Nursing Documentation Reviewed: Yes - Infectious Disease Hx of Infectious Diseases: None - Tetanus Immunization Tetanus Immunization: Unknown - Reproductive Menopause: Yes - Cardiac Hx Cardiac Disorders: No - Pulmonary Hx Respiratory Disorders: Yes Hx Bronchitis: Yes Hx Chronic Obstructive Pulmonary Disease (COPD): Yes - Neurological Hx Neurological Disorder: No - HEENT Hx HEENT Disorder: Yes (eyeglasses) - Renal Hx Renal Disorder: No - Endocrine/Metabolic Hx Endocrine Disorders: No - Hematological/Oncological Hx Blood Disorders: No - Integumentary Hx Dermatological Disorder: Yes - Musculoskeletal/Rheumatological Hx Musculoskeletal Disorders: Yes Hx Arthritis: Yes - Gastrointestinal Hx Gastrointestinal Disorders: Yes (CONSTIPATION) Other/Comment: ABD PAIN - Genitourinary/Gynecological Hx Genitourinary Disorders: Yes Other/Comment: OVARIAN CYSTS REMOVED - Psychiatric Hx Psychophysiologic Disorder: Yes Hx Anxiety: Yes Hx Depression: Yes Hx Substance Use: No - Surgical History Hx Tubal Ligation: Yes Other/Comment: COLONOSCOPY, OVARIAN CYST REMOVED - Anesthesia Hx Anesthesia: Yes - Suicidal Assessment Feels Threatened In Home Enviroment: No Family/Social History - Physician Review Nursing Documentation Reviewed: Yes Family/Social History: No Known Family HX Smoking Status: Heavy Smoker > 10 Cigarettes Daily Hx Alcohol Use: No Hx Substance Use: No Hx Substance Use Treatment: No Allergies/Home Meds Allergies/Adverse Reactions: Allergies hydroxyzine Allergy (Severe, Verified 09/26/17 11:34) FATIGUE Penicillins Allergy (Verified 09/26/17 11:34) RASH Home Medications: Home Meds Medication Instructions Recorded Confirmed Oxycodone HCl [Oxycontin] 80 mg PO BID 02/04/16 09/26/17 oxyCODONE [oxyCODONE Immediate 30 mg PO BID PRN 02/04/16 09/26/17 Release Tab] Alprazolam 1 mg PO DAILY 11/13/16 09/26/17 Pantoprazole Sodium [Protonix] 40 mg PO DAILY 08/03/17 09/26/17 Review of Systems - Physician Review All systems were reviewed & negative as marked: Yes - Review of Systems Constitutional: absent: Fevers, Night Sweats Respiratory: absent: SOB, Cough, Sputum Cardiovascular: absent: Chest Pain, Palpitations Gastrointestinal: Abdominal Pain, Nausea. absent: Diarrhea, Vomiting Genitourinary Female: absent: Dysuria, Frequency, Hematuria, Vaginal Discharge Physical Exam Vital Signs Reviewed: Yes Vital Signs Temp Pulse Resp BP Pulse Ox 09/26/17 13:33 79 18 107/78 95 09/26/17 12:37 89 18 105/74 95 09/26/17 11:43 98.6 F 96 H 18 103/72 94 L 09/26/17 11:35 98.6 F 96 H 18 103/72 93 L Temperature: Afebrile Blood Pressure: Normal Pulse: Tachycardic Respiratory Rate: Normal Appearance: Positive for: Well-Appearing, Non-Toxic, Comfortable Pain Distress: None Mental Status: Positive for: Alert and Oriented X 3 - Systems Exam Head: Present: Atraumatic, Normocephalic Pupils: Present: PERRL Extroacular Muscles: Present: EOMI Conjunctiva: Present: Normal Mouth: Present: Moist Mucous Membranes Neck: Present: Normal Range of Motion Respiratory/Chest: Present: Clear to Auscultation, Good Air Exchange. No: Respiratory Distress, Accessory Muscle Use Cardiovascular: Present: Regular Rate and Rhythm, Normal S1, S2. No: Murmurs Abdomen: Present: Tenderness (epigastric tenderness to palpation). No: Distention, Peritoneal Signs Back: Present: Normal Inspection Upper Extremity: Present: Normal Inspection. No: Cyanosis, Edema Lower Extremity: Present: Normal Inspection. No: Edema Neurological: Present: GCS=15, CN II-XII Intact, Speech Normal Skin: Present: Warm, Dry, Normal Color. No: Rashes Psychiatric: Present: Alert, Oriented x 3, Normal Insight, Normal Concentration Medical Decision Making ED Course and Treatment: 09/26/17 11:56 Impression: A 52 year old female with epigastric abdominal pain. Patient notes nausea. Plan: -- Abdomen and pelvis CT -- EKG -- Labs -- Maalox, Pepcid and Toradol -- Reassess and disposition Progress Notes: Patient instructed the importance of following up with a shank cutter. Report Date : 09/26/2017 13:46:06 PROCEDURE: CT Abdomen and Pelvis with contrast Dictator : Miguel Pierre MD IMPRESSION: No acute intra-abdominal findings 09/26/17 14:02 Patient has GI follow-up with Dr. Guerrier. Patient was instructed on importance of following up with her GI doctor for likely endoscopy. She has had multiple visits for same and likely has gerd vs gastritis vs pud. She is tolerating po and electrolytes WNL. EKG unchanged and no complaint of chest pain or shortness of breath. She is already on protonix. She was instructed to take tums or maalox as needed prn. - Lab Interpretations Lab Results: 09/26/17 12:35 09/26/17 12:35 Lab Results 09/26/17 12:35: Sodium 140, Potassium 3.7, Chloride 101, Carbon Dioxide 29, Anion Gap 14, BUN 5 L, Creatinine 0.8, Est GFR ( Amer) > 60, Est GFR (Non -Af Amer) > 60, Random Glucose 110, Calcium 9.3, Total Bilirubin 0.3, AST 17, ALT 20, Alkaline Phosphatase 106, Total Protein 6.9, Albumin 3.7, Globulin 3.2, Albumin/Globulin Ratio 1.2, Lipase 28 09/26/17 12:35: WBC 6.6 D, RBC 4.62, Hgb 14.3, Hct 42.5, MCV 92.0, MCH 31.0, MCHC 33.6, RDW 13.2, Plt Count 162, MPV 12.3 H, Gran % 78.6 H, Lymph % (Auto) 17.0 L, [place] % (Auto) 2.9, Eos % (Auto) 0.9 L, Baso % (Auto) 0.6, Gran # 5.18, Lymph # (Auto) 1.1 L, [place] # (Auto) 0.2, Eos # (Auto) 0.1, Baso # (Auto) 0.04 I have reviewed the lab results: Yes - RAD Interpretation Radiology Orders: 09/26/17 11:57 ABD & PELVIS IV CONTRAST ONLY [CT] Stat - Medication Orders Current Medication Orders: Discontinued Medications Al Hydrox/Mg Hydrox/Simethicone (Maalox Plus 30 Ml) 30 ml PO STAT STA Stop: 09/26/17 11:58 Last Admin: 09/26/17 12:41 Dose: 30 ml Famotidine (Pepcid) 20 mg IVP STAT STA Stop: 09/26/17 11:58 Last Admin: 09/26/17 12:40 Dose: 20 mg IVP Administration Document 09/26/17 12:40 HI (Rec: 09/26/17 12:40 HI [id number]) Charges for Administration # of IVP Administrations 1 Sodium Chloride (Sodium Chloride 0.9%) 1,000 mls @ 999 mls/hr IV .Q1H1M STA Stop: 09/26/17 13:51 Last Admin: 09/26/17 13:08 Dose: 999 mls/hr eMAR Start Stop Document 09/26/17 13:08 HI (Rec: 09/26/17 13:08 HI [id number]) Intravenous Solution Start Date 09/26/17 Start Time 13:08 Ketorolac Tromethamine (Toradol) 30 mg IVP STAT STA Stop: 09/26/17 11:58 Last Admin: 09/26/17 12:40 Dose: 30 mg MAR Pain Assessment Document 09/26/17 12:40 HI (Rec: 09/26/17 12:41 HI [id number]) Pain Reassessment Is this a pain reassessment? No Sleep Is patient sleeping during reassessment? No Presence of Pain Presence of Pain Yes Location Pain Location Body Site Abdomen Description Description Intermittent Intensity of Pain at present 7 IVP Administration Document 09/26/17 12:40 HI (Rec: 09/26/17 12:41 HI [id number]) Charges for Administration # of IVP Administrations 1 Ondansetron HCl (Zofran Inj) 4 mg IVP STAT STA Stop: 09/26/17 12:52 Last Admin: 09/26/17 13:12 Dose: 4 mg IVP Administration Document 09/26/17 13:12 HI (Rec: 09/26/17 13:12 HI [id number]) Charges for Administration # of IVP Administrations 1 - Scribe Statement The provider has reviewed the documentation as recorded by the Scribe Laurie Davenport Provider Scribe Attestation: All medical record entries made by the Scribe were at my direction and personally dictated by me. I have reviewed the chart and agree that the record accurately reflects my personal performance of the history, physical exam, medical decision making, and the department course for this patient. I have also personally directed, reviewed, and agree with the discharge instructions and disposition. Disposition/Present on Arrival - Present on Arrival Any Indicators Present on Arrival: No History of DVT/PE: No History of Uncontrolled Diabetes: No Urinary Catheter: No History of Decub. Ulcer: No History Surgical Site Infection Following: None - Disposition Have Diagnosis and Disposition been Completed?: Yes Diagnosis: Gastritis Disposition: HOME/ ROUTINE Disposition Time: 14:04 Patient Plan: Discharge Condition: GOOD Discharge Instructions (ExitCare): Gastritis (DC) Additional Instructions: Follow-up with PMD within 2 days. Return to ED if condition worsens. Follow- up with your GI physician. Continue protonix. Referrals: Jacob Clark MD [Primary Care Provider] - Follow up with primary Derian Guerrier MD [Medical Doctor] - Follow up with primary Forms: [employer] (Mongolian)
[2017-09-26 12:38] VITALS: O2SAT 95
[2017-09-26 12:47] LABS: BASO # 0.04 K/mm3 (0.0-2.0); BASO % 0.6 % (0.0-3.0); EOS # 0.1 (0.0-0.7); EOS % 0.9 % (1.5-5.0); GRAN # 5.18 (1.4-6.5); GRAN % 78.6 % (50.0-68.0); HEMOGLOBIN 14.3 g/dL (12.0-16.0); LYMPH # 1.1 (1.2-3.4); MEAN CORPUSCULAR HGB CONC 33.6 g/dl (31.0-37.0); MEAN PLATELET VOLUME 12.3 fl (7.0-11.0); MONO # 0.2 (0.1-0.6); MONO % 2.9 % (1.0-6.0); RBC 4.62 10^6/uL (3.5-6.1); RED CELL DISTRIBUTION WIDTH 13.2 % (11.5-14.5); WHITE BLOOD COUNT 6.6 10^3/ul (4.5-11.0)
[2017-09-26] MEDS ORDERED: Sodium Chloride 0.9% 1,000 ML IV STA (12:51)
[2017-09-26 12:56] LABS: ALB/GLOB RATIO 1.2 (1.1-1.8); ALBUMIN 3.7 g/dL (3.0-4.8); ALT/SGPT 20 U/L (7-56); AST/SGOT 17 U/L (14-36); BLOOD UREA NITROGEN 5 mg/dL (7-21); CALCIUM 9.3 mg/dL (8.4-10.5); GFR AFRICAN-AMERICAN > 60; GFR NON-AFRICAN AMERICAN > 60; LIPASE 28 U/L (23-300)
[2017-09-26] MEDS ORDERED: Iohexol 350 MG/100 ML VIAL ONE (12:59)
[2017-09-26 13:33] VITALS: BP 107/78; PULSE 79
--- NOTE | 2017-09-26 13:47 | CT ---
PROCEDURE: CT Abdomen and Pelvis with contrast HISTORY: epigastric abdominal pain COMPARISON: None. TECHNIQUE: Contrast dose: Radiation dose: Total exam DLP = mGy-cm. This CT exam was performed using one or more of the following dose reduction techniques: Automated exposure control, adjustment of the mA and/or kV according to patient size, and/or use of iterative reconstruction technique. FINDINGS: LOWER THORAX: Unremarkable. LIVER: Unremarkable. No gross lesion or ductal dilatation. GALLBLADDER AND BILE DUCTS: Unremarkable. PANCREAS: Unremarkable. No gross lesion or ductal dilatation. SPLEEN: Unremarkable. ADRENALS: Unremarkable. No mass. KIDNEYS AND URETERS: Unremarkable. No hydronephrosis. No solid mass. VASCULATURE: Unremarkable. No aortic aneurysm. BOWEL: Unremarkable. No obstruction. No gross mural thickening. APPENDIX: Normal appendix. PERITONEUM: Unremarkable. No free fluid. No free air. LYMPH NODES: Unremarkable. No enlarged lymph nodes. BLADDER: Unremarkable. REPRODUCTIVE: Dilated varicosities are seen in both adnexae left greater than right BONES: No acute fracture. OTHER FINDINGS: None. IMPRESSION: No acute intra-abdominal findings
--- NOTE | 2017-09-26 14:16 | CARD ---
APPROVED REPORT EKG Measurement Heart [id number] <Conclusion> Normal sinus rhythm Possible Left atrial enlargement Artifact present NSSTW changes
== END 2017-09-26 14:28 | disposition home or self-care (01) ==
LOC: ED 11:31
DX: K29.70 Gastritis, unspecified, without bleeding (principal)
CPT/HCPCS: 74177; 80053; 83690; 85025; 93005; 96374; 96375; 99285; J1885; J2405; J7040; Q9967